=== PATIENT | female | born 1960 | race Caucasian/White ===

== ENCOUNTER 2023-08-17 09:05 | Outpatient (AMB) | payer OTHER, SELFPAY ==
--- NOTE | 2023-08-17 09:10 | A.OFFPC_ITS ---
Vital Signs 08/17/23 09:26 08/17/23 09:30 Height 5 ft 2 in Weight 263 lb 2 oz BMI 48.1 BP 146/67 H 158/65 H Blood Pressure Location Rt brachial Rt brachial Position Sitting Respiration 16 Pulse 59 Pulse Source Pulse Oximeter Intake Visit Reasons: Establish Care [facility] transfer Intake Note: New pateint visit. Requesting prescription for triamcinolone acetonide 0.1% cream [employer] Required: No Allergies bupropion Allergy (Unknown, Verified 08/17/23 09:17) Blister latex Allergy (Unknown, Verified 08/17/23 09:17) Rash silicone Allergy (Unknown, Verified 08/17/23 09:17) Rash tramadol Allergy (Unknown, Verified 08/17/23 09:17) feels unwell adhesive bandaid Allergy (Unknown, Uncoded 08/17/23 09:15) Rash Medication List - Last Reconciled 08/17/23 by Suzi Narayan MD [id number] mg (Goody's Extra Strength) 1 packet PO QID PRN duloxetine 30 mg PO BID gabapentin 900 mg PO TID pramipexole 0.5 mg PO TID triamcinolone acetonide 0.1% 1 appl topical DAILY Tobacco use date assessed: 08/17/23 Dental Screening Dental Screen Date: 08/17/23 Did you have a dental visit in the last 12 months?: No Did you have a dental problem in the last 6 months where you did not have access to dental care?: Yes Was dental information given to patient?: Patient has dentist HPI HPI Comments History of Present Illness Details 63 year old female with a past medical h istory of depression, anxiety, GERD, LE edema, PVD, low back pain, sciatica presenting for follow up Concerns over recently elevated blood pressure-past few weeks. Seemed to coincide with restarting duloxetine. BP in 150s/160s systolic. No increased pain levels. On wegovy for weight loss. Lost ~15 pounds on the medication Chronic pain: Low back, sciatica, chronic wounds. stable on meds. Hospitalized 05/2022 with LE cellulitis. Compression fractures noted at L4-L5. Mulitilevel DDD Leg ulcer-left leg chronic. Follows with [facility] wound. Follows with vascular Thyroid nodules: u/s stable BH: On duloxetine, Mom is living in [place] alone. Oldest of five sibling, four of whom don't speak with her. Sees a therapist. [facility] is following. Getting more support from her . mammo 12/2022 cologuard 2022 -neg [facility] Medical History (Updated 08/17/23 @ 10:26 by Suzi Narayan MD) Tubular adenoma of colon Severe obesity Restless legs Osteoarthritis Obesity Multiple thyroid nodules Hyponatremia Hypochloremia H/O gastroesophageal reflux (GERD) Elevated troponin Depression COVID-19 Anemia Surgical History (Updated 08/17/23 @ 09:38 by Shannan Ayoub CMA) H/O tubal ligation H/O: hysterectomy Family History (Updated 08/17/23 @ 09:40 by Shannan Ayoub CMA) Mother Heart disease Osteoporosis Father Prostate cancer Social History Housing: House Patient Tobacco Use Status: Never used Tobacco e-Cigarette/Vaping Use: Never Used service: No Current occupational status: disabled Cognitive needs: No Hearing needs: No Vision needs: Yes (glasses) Questionnaire PHQ-9 Over the last 2 weeks, how often have you been bothered by any of the following problems? 1. Little interest or pleasure in doing things: more than half the days 2. Feeling down, depressed, or hopeless: more than half the days 3. Trouble falling or staying asleep, or sleeping too much: more than half the days 4. Feeling tired or having little energy: more than half the days 5. Poor appetite or overeating: not at all 6. Feeling bad about yourself - or that you are a failure or have let yourself or your family down: not at all 7. Trouble concentrating on things, such as reading the newspaper or watching television: not at all 8. Moving or speaking so slowly that other people could have noticed. Or the opposite - being so fidgety or restless that you have been moving around a lot more than usual: not at all 9. Thoughts that you would be better off or of hurting yourself in some way: not at all Total score: 8 Depression Screening Interpretation: Positive Depression Screening Follow-up: Existing condition Depression Screening Done: Yes 20166 - PHQ-9 Billing: Yes Source: Developed by Drs. Stoney Madrid, Niya Leonard Schroeder and colleagues, with an educational urvashi from [employer]. Thrive Questionnaire Date Thrive assessed: 08/17/23 I am a: Patient What is your living situation today?: I have a steady place to live Within the past 12 months, did the food you bought not last and you didn't have the money to get more?: Never true Within the past 12 months, did you worry whether your food would run out before you got money to buy more?: Never true Do you have trouble paying for medicines?: No Do you have trouble getting transportation to medical appointments?: No Do you have trouble paying your heating and electricity bill?: No Do you have trouble taking care of your child, family member or friend?: No Do you have trouble with day-to-day activities such as bathing, preparing meals, shopping, managing finances, etc.?: No Are you currently unemployed and looking for a job?: No Are you interested in more education?: No Please select the resources that you would like help with: None Currently or been in a relationship where the following occur: no concerns reported THRIVE Score: 0 AUDIT C Alcohol Use Questionnaire (AUDIT-C) 1. How often do you have a drink containing alcohol?: 2-4 times a month 2. How many drinks containing alcohol do you have on a typical day when you are drinking?: 5 or 6 3. How often do you have six or more drinks on one occasion?: Monthly Total Score: 6 ALEX-7 AMB Questionnaire ALEX-7 Date ALEX - 7 assessed: 08/17/23 Feeling nervous, anxious, or on edge: 3 = Nearly every day Not being able to stop or control worryin = More than half the days Worrying too much about different things: 2 = More than half the days Trouble relaxin = Nearly every day Being so restless that it is hard to sit still: 3 = Nearly every day Becoming easily annoyed or irritable: 2 = More than half the days Feeling afraid as if something awful might happen: 2 = More than half the days Total ALEX-7 score (0-4 normal; 5-9 mild; 10-14 moderate; 15-21 severe): 17 Source: Developed by Drs. Stoney Madrid, Leonard Meléndez and colleagues, with an educational urvashi from [employer]. ALEX-7 Assessment Billing ALEX-7 Assessment Tool: ALEX-7 Assessment 91233 Review of Systems Const Details: ROS CONSTITUTIONAL: Denies weight loss, fever and chills. HEENT: Denies changes in vision and hearing. RESPIRATORY: Denies SOB and cough. CV: Denies palpitations and CP GI: Denies abdominal pain, nausea, vomiting and diarrhea. : Denies dysuria and urinary frequency. MSK: Denies new myalgia and joint pain. SKIN: Denies rash and pruritus. NEUROLOGICAL: Denies headache PSYCHIATRIC: Denies recent changes in mood. Physical exam (Primary Care) Vital Signs: Last Vital Signs Pulse 59 08/17/23 09:26 Resp 16 08/17/23 09:26 BP 158/65 H 08/17/23 09:30 PHYSICAL EXAM: GENERAL: Alert and oriented x 3. NAD EYES: EOMI. Anicteric. HENT: Moist mucous membranes. No scleral icterus. No cervical lymphadenopathy. LUNGS: Clear to auscultation bilaterally. CARDIOVASCULAR: Regular rate and rhythm. No murmur. No JVD. ABDOMEN: Soft, non-tender +bs EXTREMITIES: No edema. Non-tender. SKIN:Warm, dry No rashes or lesions. Warm. NEUROLOGIC: No focal neurological deficits. CN II-XII grossly intact PSYCHIATRIC: Cooperative. Appropriate mood and affect BMI result Body Mass Index 48.1 Tobacco/Smoking Status: Tobacco use Status Tobacco use date assessed 08/17/23 08/17/23 09:25 Patient Tobacco Use Status Never used Tobacco 08/17/23 09:25 e-Cigarette/Vaping Use Never Used 08/17/23 09:25 Depression Screening Interpretation: Positive Depression Screening Follow-up: Existing condition Currently or been in a relationship where the following occur: no concerns reported Assessment and Plan Assessment & Plan (1) Depression: Comment: Continue BH follow up. continue cymbalta Code(s): F32.A - Depression, unspecified Qualifiers: Depression Type: major depressive disorder Major depression recurrence: recurrent Active/Remission status: currently active Major depression episode severity: moderate Qualified Code(s): F33.1 - Major depressive disorder, recurrent, moderate (2) Multiple thyroid nodules: Code(s): E04.2 - Nontoxic multinodular goiter (3) H/O gastroesophageal reflux (GERD): Code(s): Z87.19 - Personal history of other diseases of the digestive system (4) Osteoarthritis: Comment: stable pain on current medications Code(s): M19.90 - Unspecified osteoarthritis, unspecified site Qualifiers: Osteoarthritis location: multiple joints Osteoarthritis type: primary Qualified Code(s): M15.9 - Polyosteoarthritis, unspecified (5) Tubular adenoma of colon: Code(s): D12.6 - Benign neoplasm of colon, unspecified (6) Restless legs: Code(s): G25.81 - Restless legs syndrome (7) Anemia: Code(s): D64.9 - Anemia, unspecified Orders: Orders Complete Blood Count Auto Diff Today D12.6 - Benign neoplasm of colon, unspecified, D64.9 - Anemia, unspecified, E04.2 - Nontoxic multinodular goiter, F33.1 - Major depressive disorder, recurrent, moderate, G25.81 - Restless legs syndrome, M15.9 - Polyosteoarthritis, unspecified, Z87.19 - Personal history of other diseases of the digestive system Comprehensive Met. Panel Today D12.6 - Benign neoplasm of colon, unspecified, D64.9 - Anemia, unspecified, E04.2 - Nontoxic multinodular goiter, F33.1 - Major depressive disorder, recurrent, moderate, G25.81 - Restless legs syndrome, M15.9 - Polyosteoarthritis, unspecified, Z87.19 - Personal history of other diseases of the digestive system TSH reflex Free T4 Today D12.6 - Benign neoplasm of colon, unspecified, D64.9 - Anemia, unspecified, E04.2 - Nontoxic multinodular goiter, F33.1 - Major depressive disorder, recurrent, moderate, G25.81 - Restless legs syndrome, M15.9 - Polyosteoarthritis, unspecified, Z87.19 - Personal history of other diseases of the digestive system Hemoglobin A1c Today D12.6 - Benign neoplasm of colon, unspecified, D64.9 - Anemia, unspecified, E04.2 - Nontoxic multinodular goiter, F33.1 - Major depressive disorder, recurrent, moderate, G25.81 - Restless legs syndrome, M15.9 - Polyosteoarthritis, unspecified, Z87.19 - Personal history of other diseases of the digestive system Medications: New semaglutide (weight loss) (Alexey) administer weeks 9 through 12 of therapy 1 mg (0.5 mL) subcut QWEEK 12 weeks 6 mL 3RF triamcinolone acetonide 0.1% 1 appl topical DAILY 30 grams 2RF losartan 25 mg PO DAILY 90 days 90 tabs 3RF triamcinolone acetonide 0.1% 1 appl topical DAILY 90 days 30 grams 3RF Coding Level of Care Code Est Pt Level 5 (50720) Complex EM visit Add On G2211 Diagnoses Moderate episode of recurrent major depressive disorder F33.1 Depression Type: major depressive disorder Major depression recurrence: recurrent Active/Remission status: currently active Major depression episode severity: moderate Multiple thyroid nodules E04.2 H/O gastroesophageal reflux (GERD) Z87.19 Primary osteoarthritis involving multiple joints M15.9 Osteoarthritis location: multiple joints Osteoarthritis type: primary Tubular adenoma of colon D12.6 Restless legs G25.81 Anemia D64.9 Additional Codes ALEX-7 Assessment Billing - ALEX-7 Assessment Tool: ALEX-7 Assessment [id number] ([id number]) Time Spent (min) 46
[2023-08-17 09:26] VITALS: BP 146/67; PULSE 59; RESP 16; BMI 48.1
[2023-08-17 09:30] VITALS: BP 158/65
== END 2023-08-17 10:20 | disposition home or self-care (01) ==
PROVIDERS: Visit Provider Internal Medicine
DX: E04.2 Nontoxic multinodular goiter (principal); F33.1 Major depressive disorder, recurrent, moderate; Z87.19 Personal history of other diseases of the digestive system; M15.9 Polyosteoarthritis, unspecified; D12.6 Benign neoplasm of colon, unspecified; G25.81 Restless legs syndrome; D64.9 Anemia, unspecified
CPT/HCPCS: 99215; G2211

== ENCOUNTER 2023-08-17 10:41 | Outpatient (REF) | payer OTHER, SELFPAY ==
[2023-08-17 14:48] LABS: MANUAL DIFF FLAG NO
[2023-08-17 14:56] LABS: Basophils Percent Auto 0.5 % (0-2); Eosinophils Absolute Auto 0.1 X10*3/uL (0.0-0.4); Eosinophils Percent Auto 2.3 % (0-4); Hematocrit 34.2 % (37.0-47.0); Hemoglobin 10.6 g/dl (12.0-16.0); Imm Gran Abs Auto 0.01 X10*3/uL (0.00-0.03); Imm Gran Pct Auto 0.2 % (0.0-0.4); Lymphocytes Absolute Auto 1.5 X10*3/uL (1.2-4.9); Lymphocytes Percent Auto 26.4 % (20-40); Monocytes Absolute Auto 0.4 X10*3/uL (0.1-1.2); Monocytes Percent Auto 7.3 % (2-11); Neutrophils Absolute Auto 3.6 x10*3/uL (2.0-8.3); Neutrophils Percent Auto 63.3 % (45-73); Platelet Count 243 X10*3/uL (160-400); Red Blood Count 4.07 X10*6/uL (4.20-5.50); White Blood Count 5.7 X10*3/uL (4.8-10.8)
[2023-08-17 15:16] LABS: Estimated Average Glucose 111 mg/dL; Hemoglobin A1c % 5.5 % (<6.0)
[2023-08-17 15:39] LABS: Alanine Aminotransferase 10 U/L (0-31); Albumin Level 3.8 g/dL (3.5-5.0); Alkaline Phosphatase 117 U/L (39-117); Anion Gap 14 (12-20); Aspartate Amino Transferase 15 U/L (5-31); Bilirubin Total 0.5 mg/dL (0.0-1.0); Blood Urea Nitrogen 11 mg/dL (9-16); Calcium 8.7 mg/dL (8.4-10.2); Carbon Dioxide 25 mmol/L (22-29); Chloride 105 mmol/L (96-108); Estimated Glomerular Filt Rate > 60; Glucose Random 86 mg/dL (60-115); Potassium 4.1 mmol/L (3.3-5.1); Sodium 140 mmol/L (135-145); Total Protein 7.2 g/dL (6.5-8.0)
[2023-08-17 15:46] LABS: TSH reflex Free T4 2.04 uIU/mL (0.32-4.0)
== END 2023-08-17 10:42 | disposition home or self-care (01) ==
LOC: HO.WFDLDS 10:41
PROVIDERS: Visit Provider Internal Medicine
DX: D64.9 Anemia, unspecified (principal); F33.1 Major depressive disorder, recurrent, moderate; E04.2 Nontoxic multinodular goiter; Z87.19 Personal history of other diseases of the digestive system; M15.9 Polyosteoarthritis, unspecified; D12.6 Benign neoplasm of colon, unspecified; G25.81 Restless legs syndrome
CPT/HCPCS: 36415; 80053; 83036; 84443; 85025

== ENCOUNTER 2023-09-12 11:15 | Outpatient (AMB) | payer OTHER, SELFPAY ==
--- NOTE | 2023-09-12 11:22 | MHC.PC.OV ---
Vital Signs 09/12/23 11:24 Height 5 ft 2 in Weight 263 lb BMI 48.1 BP 161/77 H Blood Pressure Location Lt radial Position Sitting Respiration 16 Pulse 69 Pulse Source Pulse Oximeter Temp 97.9 F Temp Source Temporal Artery Scan Pulse Oximetry (%) 97 Oxygen Delivery Method Room Air Intake Visit Reasons: f/u medication Intake Note: F/U on medication. Allergies bupropion Allergy (Unknown, Verified 09/12/23 11:22) Blister latex Allergy (Unknown, Verified 09/12/23 11:22) Rash silicone Allergy (Unknown, Verified 09/12/23 11:22) Rash tramadol Allergy (Unknown, Verified 09/12/23 11:22) feels unwell adhesive bandaid Allergy (Unknown, Uncoded 08/17/23 09:15) Rash Medication List - Last Reconciled 09/12/23 by Suzi Narayan MD [id number] [id number] mg (Goody's Extra Strength) 1 packet PO QID PRN duloxetine 30 mg PO BID gabapentin 900 mg PO TID losartan 25 mg PO DAILY 90 days morphine ER 30 mg PO BID oxycodone mg PO pramipexole 0.5 mg PO TID triamcinolone acetonide 0.1% 1 appl topical DAILY triamcinolone acetonide 0.1% 1 appl topical DAILY 90 days Wegovy (semaglutide (weight loss)) 1 mg (0.5 mL) subcut QWEEK 12 weeks NS Tobacco use date assessed: 08/17/23 Dental Screening Dental Screen Date: 08/17/23 HPI HPI Comments History of Present Illness Details 63 year old female with a past medical history of depression, anxiety, GERD, LE edema, PVD, low back pain, sciatica presenting for follow up CV: Blood pressure has improved at home. Home health/PT has gotten good readings. continues to be elevated in office. Seemed to coincide with restarting duloxetine. BP was 150s/160s systolic improved at homne to 120s, 130s. No increased pain levels. On wegovy for weight loss. Lost ~15 pounds on the medication Chronic pain: Low back, sciatica, chronic wounds. stable on meds. Hospitalized 05/2022 with LE cellulitis. Compression fractures noted at L4-L5. Mulitilevel DDD Leg ulcer-left leg chronic. Follows with [facility] wound. Follows with vascular Thyroid nodules: u/s stable BH: On duloxetine, Mom is living in [place] alone. Oldest of five sibling, four of whom don't speak with her. Sees a therapist. [facility]. Getting more support from her . mammo 12/2022 cologuard 2022 -neg. Recent labs with mild anemia. [facility] Medical History (Updated 09/17/23 @ 10:55 by Suzi Narayan MD) Tubular adenoma of colon Severe obesity Restless legs Osteoarthritis Obesity Multiple thyroid nodules Hyponatremia Hypochloremia H/O gastroesophageal reflux (GERD) Elevated troponin Depression COVID-19 Anemia Surgical History (Updated 08/17/23 @ 09:38 by Shannan Ayoub CMA) H/O tubal ligation H/O: hysterectomy Family History (Updated 08/17/23 @ 09:40 by Shannan Ayoub CMA) Mother Heart disease Osteoporosis Father Prostate cancer Social History Housing: House Patient Tobacco Use Status: Never used Tobacco e-Cigarette/Vaping Use: Never Used service: No 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 Depression Screening Interpretation: Positive Depression Screening Follow-up: Existing condition Depression Screening Done: Yes Source: Developed by Drs. Stoney Madrid, Leonard Meléndez and colleagues, with an educational uravshi from [employer]. Thrive Questionnaire Date Thrive assessed: 08/17/23 Currently or been in a relationship where the following occur: no concerns reported THRIVE Score: 0 AUDIT C Alcohol Use Questionnaire (AUDIT-C) 1. How often do you have a drink containing alcohol?: Monthly or less 2. How many drinks containing alcohol do you have on a typical day when you are drinking?: 3 or 4 3. How often do you have six or more drinks on one occasion?: Monthly Total Score: 4 Score Reviewed/Action Taken: Yes ALEX-7 AMB Questionnaire ALEX-7 Date ALEX - 7 assessed: 08/17/23 Source: Developed by Drs. Stoney Madrid, Leonard Meléndez and colleagues, with an educational urvashi from [employer]. ACT Questionnaire In the past 4 weeks, how much of the time did your asthma keep you from getting as much done at work, school or at home?: None of the time During the past 4 weeks, how often have you had shortness of breath?: Not at all During the past 4 weeks, how often did your asthma symptoms wake you up at night or earlier than usual in the morning?: Not at all During the past 4 weeks, how often have you had to use your rescue inhaler or nebulizer medication?: Not at all How would you rate your asthma control during the past 4 weeks?: Completely controlled Score: 25 Review of Systems Const Details: ROS CONSTITUTIONAL: Denies weight loss, fever and chills. HEENT: Denies changes in vision and hearing. RESPIRATORY: Denies SOB and cough. CV: Denies palpitations and CP GI: Denies abdominal pain, nausea, vomiting and diarrhea. : Denies dysuria and urinary frequency. MSK: Denies new myalgia and joint pain. SKIN: Denies rash and pruritus. NEUROLOGICAL: Denies headache PSYCHIATRIC: Denies recent changes in mood. Physical exam (Primary Care) Vital Signs: Last Vital Signs Temp 97.9 F 09/12/23 11:24 Pulse 69 09/12/23 11:24 Resp 16 09/12/23 11:24 BP 161/77 H 09/12/23 11:24 Pulse Ox 97 09/12/23 11:24 Oxygen Delivery Method Room Air 09/12/23 11:24 PHYSICAL EXAM: GENERAL: Alert and oriented x 3. NAD EYES: EOMI. Anicteric. HENT: Moist mucous membranes. No scleral icterus. No cervical lymphadenopathy. LUNGS: Clear to auscultation bilaterally. CARDIOVASCULAR: Regular rate and rhythm. No murmur. No JVD. ABDOMEN: Soft, non-tender +bs EXTREMITIES: No edema. Non-tender. SKIN:Warm, dry No rashes or lesions. Warm. NEUROLOGIC: No focal neurological deficits. CN II-XII grossly intact PSYCHIATRIC: Cooperative. Appropriate mood and affect BMI result Body Mass Index 48.1 Tobacco/Smoking Status: Tobacco use Status Tobacco use date assessed 08/17/23 09/12/23 11:29 Patient Tobacco Use Status Never used Tobacco 09/12/23 11:29 e-Cigarette/Vaping Use Never Used 09/12/23 11:29 Depression Screening Interpretation: Positive Depression Screening Follow-up: Existing condition Thrive Assessment: Date of Thrive Assessment Date Thrive assessed 08/17/23 09/12/23 11:29 Currently or been in a relationship where the following occur: no concerns reported Assessment and Plan Assessment & Plan (1) Depression: Comment: Continue BH follow up. continue cymbalta. Code(s): F32.A - Depression, unspecified Qualifiers: Active/Remission status: currently active Depression Type: major depressive disorder Major depression episode severity: moderate Major depression recurrence: recurrent Qualified Code(s): F33.1 - Major depressive disorder, recurrent, moderate (2) Osteoarthritis: Comment: stable baseline pain on current medications. Bilateral hip pain-start meloxicam. Code(s): M19.90 - Unspecified osteoarthritis, unspecified site Qualifiers: Osteoarthritis location: multiple joints Osteoarthritis type: primary Qualified Code(s): M15.9 - Polyosteoarthritis, unspecified (3) Anemia: Comment: Patient declines referral for colonoscopy. Agreeable to cologuard Code(s): D64.9 - Anemia, unspecified Qualifiers: Anemia type: unspecified type Qualified Code(s): D64.9 - Anemia, unspecified Orders: Referrals Cologuard Test Z12.11 - Encounter for screening for malignant neoplasm of colon, Z12.12 - Encounter for screening for malignant neoplasm of rectum Medications: New oxycodone 5 mg PO Q8H PRN 21 tabs 0RF pain 7 days meloxicam 15 mg PO DAILY 90 tabs 3RF morphine ER 30 mg PO BID 60 tabs 0RF 30 days Changed From semaglutide (weight loss) (Wegovy) administer weeks 9 through 12 of therapy 1 mg (0.5 mL) subcut QWEEK 12 weeks 6 mL 3RF To Wegovy (semaglutide (weight loss)) administer weeks 9 through 12 of therapy 1 mg (0.5 mL) subcut QWEEK 6 mL 3RF 12 weeks NS Coding Level of Care Code Est Pt Level 4 (50950) Diagnoses Moderate episode of recurrent major depressive disorder F33.1 Active/Remission status: currently active Depression Type: major depressive disorder Major depression episode severity: moderate Major depression recurrence: recurrent Primary osteoarthritis involving multiple joints M15.9 Osteoarthritis location: multiple joints Osteoarthritis type: primary Anemia, unspecified type D64.9 Anemia type: unspecified type
[2023-09-12 11:24] VITALS: BP 161/77; PULSE 69; RESP 16; TEMP 36.6; O2SAT 97; BMI 48.1
== END 2023-09-12 12:06 | disposition home or self-care (01) ==
PROVIDERS: PCP Internal Medicine; Visit Provider Internal Medicine
DX: F33.1 Major depressive disorder, recurrent, moderate (principal); M15.9 Polyosteoarthritis, unspecified; D64.9 Anemia, unspecified
CPT/HCPCS: 99214

== ENCOUNTER 2023-11-27 12:07 | Outpatient (REF) | payer OTHER, SELFPAY ==
[2023-11-27 14:43] LABS: Appearance Urine Cloudy; Color Urine Yellow; Glucose Urine UA Negative (Negative); Leukocyte Esterase Urine Large (3+) (Negative); Nitrite Urine Negative (Negative); Specific Gravity - Urine <= 1.005 (1.005-1.025); UMIC TRIGGER UA YES; Urine Blood Negative (Negative); Urine Ketones Negative (Negative); Urine Protein Negative (Neg-Trace)
[2023-11-27 14:47] LABS: Bacteria Urine None Seen (None Seen); Hyaline Casts Urine 0-2 /LPF (0-2); RBC Urine 0-2 /HPF (0-2); Squamous Epithelial Cell Urine 0-2 /HPF (0-2); WBC Urine >50 /HPF (0-5)
== END 2023-11-27 12:08 | disposition home or self-care (01) ==
LOC: HO.WFDLDS 12:07
PROVIDERS: Visit Provider Family Medicine
DX: R30.0 Dysuria (principal); R82.79 Other abnormal findings on microbiological examination of urine
CPT/HCPCS: 81001; 87086; 87088; 87186

== ENCOUNTER 2023-12-19 10:25 | Outpatient (AMB) | payer OTHER, SELFPAY ==
--- NOTE | 2023-12-19 10:39 | MHC.PC.OV ---
Vital Signs 12/19/23 10:48 Height 5 ft 2 in BMI Reason not done Patient refused/unable BP 143/66 H Blood Pressure Location Rt radial Position Sitting Pulse 85 Pulse Source Pulse Oximeter Pulse Oximetry (%) 100 Oxygen Delivery Method Room Air Intake Visit Reasons: Rsch from 12/17 Intake Note: Patient is here for a follow up Internal Medicine Nurse Practitioner Required: No Accompanied by: Self / Same As Patient Allergies bupropion Allergy (Unknown, Verified 12/19/23 10:42) Blister latex Allergy (Unknown, Verified 12/19/23 10:42) Rash silicone Allergy (Unknown, Verified 12/19/23 10:42) Rash tramadol Allergy (Unknown, Verified 12/19/23 10:42) feels unwell adhesive bandaid Allergy (Unknown, Uncoded 12/19/23 10:42) Rash Tobacco use date assessed: 08/17/23 Dental Screening Dental Screen Date: 08/17/23 HPI HPI Comments History of Present Illness Details 63 year old female with a past medical history of depression, anxiety, GERD, LE edema, PVD, low back pain, sciatica presenting for follow up CV: Blood pressure 130-150s, more often 140, 150s. Continues to have home health. No increased pain levels. On wegovy for weight loss. Lost ~15 pounds on the medication. She requests a referral to nutrition Chronic pain: Low back, sciatica, chronic wounds. stable on meds-morphine ER, oxycodone. Hospitalized 05/2022 with LE cellulitis. Compression fractures noted at L4-L5. Mulitilevel DDD Leg ulcer-left leg chronic. Follows with [facility] wound. Follows with vascular Thyroid nodules: u/s stable BH: stable on duloxetine. Mom is living in [place] alone. Oldest of five sibling, four of whom don't speak with her. Sees a therapist. [facility] is following. Getting more support from her . Mammo 12/2022 Anemia on labs. She had cologuard 2022 -neg. Is willing to consider colonoscopy if insurance covers ROS see HPI PHYSICAL EXAM: GENERAL: Alert and oriented x 3. NAD EYES: EOMI. Anicteric. HENT: Moist mucous membranes. No scleral icterus. No cervical lymphadenopathy. LUNGS: Clear to auscultation bilaterally. CARDIOVASCULAR: Regular rate and rhythm. No murmur. No JVD. ABDOMEN: Soft, non-tender +bs EXTREMITIES: No edema. Non-tender. SKIN: No rashes or lesions. Warm. NEUROLOGIC: No focal neurological deficits. CN II-XII grossly intact PSYCHIATRIC: Cooperative. Appropriate mood and affect [facility] Medical History Tubular adenoma of colon Severe obesity Restless legs Osteoarthritis Obesity Multiple thyroid nodules Hyponatremia Hypochloremia H/O gastroesophageal reflux (GERD) Elevated troponin Depression COVID-19 Anemia Surgical History H/O tubal ligation H/O: hysterectomy Family History Mother Heart disease Osteoporosis Father Prostate cancer Social History Housing: House Patient Tobacco Use Status: Never used Tobacco e-Cigarette/Vaping Use: Never Used service: No Current occupational status: disabled (industrial accident disability) Cognitive needs: No Hearing needs: No Vision needs: Yes (glasses) Questionnaire Thrive Questionnaire Date Thrive assessed: 08/17/23 I am a: Patient What is your living situation today?: I have a steady place to live Within the past 12 months, did the food you bought not last and you didn't have the money to get more?: I choose not to answer this question Within the past 12 months, did you worry whether your food would run out before you got money to buy more?: I choose not to answer this question Do you have trouble paying for medicines?: Yes Do you have trouble getting transportation to medical appointments?: No Do you have trouble paying your heating and electricity bill?: I choose not to answer this question Do you have trouble taking care of your child, family member or friend?: No Do you have trouble with day-to-day activities such as bathing, preparing meals, shopping, managing finances, etc.?: No Are you currently unemployed and looking for a job?: I choose not to answer this question Are you interested in more education?: No Please select the resources that you would like help with: None Currently or been in a relationship where the following occur: No concerns reported THRIVE Score: 0 AUDIT C Alcohol Use Questionnaire (AUDIT-C) 1. How often do you have a drink containing alcohol?: Monthly or less 2. How many drinks containing alcohol do you have on a typical day when you are drinking?: 3 or 4 3. How often do you have six or more drinks on one occasion?: Less than monthly Total Score: 3 ALEX-7 AMB Questionnaire ALEX-7 Date ALEX - 7 assessed: 08/17/23 Feeling nervous, anxious, or on edge: 3 = Nearly every day Not being able to stop or control worryin = More than half the days Worrying too much about different things: 3 = Nearly every day Trouble relaxin = Nearly every day Being so restless that it is hard to sit still: 3 = Nearly every day Becoming easily annoyed or irritable: 3 = Nearly every day Feeling afraid as if something awful might happen: 2 = More than half the days Total ALEX-7 score (0-4 normal; 5-9 mild; 10-14 moderate; 15-21 severe): 19 Source: Developed by Drs. Stoney Madrid, Niya Crowley, Leonard Carrington and colleagues, with an educational urvashi from [email or web address]. Physical exam (Primary Care) Vital Signs: Last Vital Signs Pulse 85 12/19/23 10:48 BP 143/66 H 12/19/23 10:48 Pulse Ox 100 12/19/23 10:48 Oxygen Delivery Method Room Air 12/19/23 10:48 Tobacco/Smoking Status: Tobacco use Status Tobacco use date assessed 08/17/23 12/19/23 10:45 Patient Tobacco Use Status Never used Tobacco 12/19/23 10:45 e-Cigarette/Vaping Use Never Used 12/19/23 10:45 Thrive Assessment: Date of Thrive Assessment Date Thrive assessed 08/17/23 12/19/23 10:45 Currently or been in a relationship where the following occur: No concerns reported Assessment and Plan Assessment & Plan (1) Chronic pain: Code(s): G89.29 - Other chronic pain Qualifiers: Chronic pain type: chronic pain syndrome Qualified Code(s): G89.4 - Chronic pain syndrome Plan: stable on current medications (2) Severe obesity: Code(s): E66.01 - Morbid (severe) obesity due to excess calories Plan: continues GLP (3) Osteoarthritis: Comment: stable baseline pain on current medications Code(s): M19.90 - Unspecified osteoarthritis, unspecified site Qualifiers: Osteoarthritis location: multiple joints Osteoarthritis type: primary Qualified Code(s): M15.9 - Polyosteoarthritis, unspecified Orders: Referrals Nutrition/Dietitian Referral E66.9 - Obesity, unspecified Gastroenterology Referral D64.9 - Anemia, unspecified Medications: New ondansetron 4 mg PO Q8H PRN 60 tabs 3RF nausea and vomiting losartan 50 mg PO DAILY 90 tabs 3RF Refilled morphine ER 30 mg PO BID 30 days 60 tabs 0RF Discontinued losartan Discontinued Reason: Doctor's Order 25 mg PO DAILY 90 days 90 tabs 3RF Coding Level of Care Code Est Pt Level 5 (31313) Complex EM visit Add On G2211 Diagnoses Chronic pain syndrome G89.4 Chronic pain type: chronic pain syndrome Severe obesity E66.01 Primary osteoarthritis involving multiple joints M15.9 Osteoarthritis location: multiple joints Osteoarthritis type: primary Time Spent (min) 44
[2023-12-19 10:48] VITALS: BP 143/66; PULSE 85; O2SAT 100
== END 2023-12-19 11:26 | disposition home or self-care (01) ==
PROVIDERS: PCP Internal Medicine; Visit Provider Internal Medicine
DX: G89.4 Chronic pain syndrome (principal); E66.01 Morbid (severe) obesity due to excess calories; M15.9 Polyosteoarthritis, unspecified
CPT/HCPCS: 99215

== ENCOUNTER 2024-01-26 10:23 | Outpatient (AMB) | payer OTHER, SELFPAY ==
--- NOTE | 2024-01-26 10:28 | A.OFFPC_ITS ---
Vital Signs 01/26/24 10:31 01/26/24 10:39 BMI Reason not done Patient refused/unable BP 149/68 H 177/74 H Blood Pressure Location Rt brachial Rt brachial Position Sitting Sitting Pulse 72 Pulse Source Pulse Oximeter Pulse Oximetry (%) 98 Oxygen Delivery Method Room Air Intake Visit Reasons: medication issues Intake Note: Follow up Paratransit Operator Required: No Allergies bupropion Allergy (Unknown, Verified 01/26/24 10:28) Blister latex Allergy (Unknown, Verified 01/26/24 10:28) Rash silicone Allergy (Unknown, Verified 01/26/24 10:28) Rash tramadol Allergy (Unknown, Verified 01/26/24 10:28) feels unwell adhesive bandaid Allergy (Unknown, Uncoded 01/26/24 10:28) Rash Tobacco use date assessed: 08/17/23 Dental Screening Dental Screen Date: 08/17/23 HPI HPI Comments History of Present Illness Details 63 year old female with a past medical h istory of depression, anxiety, GERD, LE edema, PVD, low back pain, sciatica presenting for follow up CV: Blood pressure 130-150s, has infrequent lightheadedness. Continues to have home health. No increased pain levels. On wegovy for weight loss. Doing well with it. She is having some nausea before dinner time. Chronic pain: Low back, sciatica, chronic wounds. stable on meds-morphine ER, oxycodone. Hospitalized 05/2022 with LE cellulitis. Compression fractures noted at L4-L5. Mulitilevel DDD Leg ulcer-left leg chronic. Follows with [facility] wound. Follows with vascular Thyroid nodules: u/s stable BH: stable on duloxetine. Mom is living in [place] alone. Oldest of five sibling, four of whom don't speak with her. Sees a therapist. [facility] is following. Getting more support from her . Mammo 12/2022 Anemia on labs. She had cologuard 2022 -neg. Is willing to consider colonoscopy if insurance covers ROS see HPI PHYSICAL EXAM: GENERAL: Alert and oriented x 3. NAD EYES: EOMI. Anicteric. HENT: Moist mucous membranes. No scleral icterus. No cervical lymphadenopathy. LUNGS: Clear to auscultation bilaterally. CARDIOVASCULAR: Regular rate and rhythm. No murmur. No JVD. ABDOMEN: Soft, non-tender +bs EXTREMITIES: No edema. Non-tender. SKIN: No rashes or lesions. Warm. NEUROLOGIC: No focal neurological deficits. CN II-XII grossly intact PSYCHIATRIC: Cooperative. Appropriate mood and affect [facility] Medical History Tubular adenoma of colon Severe obesity Restless legs Osteoarthritis Obesity Multiple thyroid nodules Hyponatremia Hypochloremia H/O gastroesophageal reflux (GERD) Elevated troponin Depression COVID-19 Anemia Surgical History H/O tubal ligation H/O: hysterectomy Family History Mother Heart disease Osteoporosis Father Prostate cancer Social History Housing: House Patient Tobacco Use Status: Never used Tobacco e-Cigarette/Vaping Use: Never Used service: No 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 4. Feeling tired or having little energy: nearly every day 5. Poor appetite or overeating: nearly every day Depression Screening Interpretation: Negative Depression Screening Done: Yes Source: Developed by Drs. Stoney Madrid, Niya Crowley, Leonard Carrington and colleagues, with an educational urvashi from [employer]. Thrive Questionnaire Date Thrive assessed: 12/19/23 I am a: Patient What is your living situation today?: I have a steady place to live Within the past 12 months, did the food you bought not last and you didn't have the money to get more?: I choose not to answer this question Within the past 12 months, did you worry whether your food would run out before you got money to buy more?: I choose not to answer this question Do you have trouble paying for medicines?: Yes Do you have trouble getting transportation to medical appointments?: No Do you have trouble paying your heating and electricity bill?: I choose not to answer this question Do you have trouble taking care of your child, family member or friend?: No Do you have trouble with day-to-day activities such as bathing, preparing meals, shopping, managing finances, etc.?: No Are you currently unemployed and looking for a job?: I choose not to answer this question Are you interested in more education?: No Please select the resources that you would like help with: None Currently or been in a relationship where the following occur: No concerns reported THRIVE Score: 0 ALEX-7 AMB Questionnaire ALEX-7 Date ALEX - 7 assessed: 08/17/23 Source: Developed by Drs. Stoney Madrid, Niya Crowley, Leonard Carrington and colleagues, with an educational urvashi from [employer]. Physical exam (Primary Care) Vital Signs: Last Vital Signs Pulse 72 01/26/24 10:31 BP 177/74 H 01/26/24 10:39 Pulse Ox 98 01/26/24 10:31 Oxygen Delivery Method Room Air 01/26/24 10:31 Tobacco/Smoking Status: Tobacco use Status Tobacco use date assessed 08/17/23 01/26/24 10:35 Patient Tobacco Use Status Never used Tobacco 01/26/24 10:35 e-Cigarette/Vaping Use Never Used 01/26/24 10:35 Depression Screening Interpretation: Negative Thrive Assessment: Date of Thrive Assessment Date Thrive assessed 12/19/23 01/26/24 10:35 Currently or been in a relationship where the following occur: No concerns reported Coding Level of Care Code Est Pt Level 4 (63268) Diagnoses Severe obesity E66.01 Primary osteoarthritis involving multiple joints M15.9 Osteoarthritis location: multiple joints Osteoarthritis type: primary Assessment & Plan Assessment & Plan (1) Severe obesity: Code(s): E66.01 - Morbid (severe) obesity due to excess calories Category: Medical Plan: Doing well on wegovy. Experiencing some nausea in late afternoon. zofran sent with coupon (2) Osteoarthritis: Comment: stable baseline pain on current medications Code(s): M19.90 - Unspecified osteoarthritis, unspecified site Category: Medical Qualifiers: Osteoarthritis location: multiple joints Osteoarthritis type: primary Qualified Code(s): M15.9 - Polyosteoarthritis, unspecified Plan: continue current medications Medications: New ondansetron RUN WITH ATTACHED [employer] code 8 mg PO DAILY 30 tabs 0RF
[2024-01-26 10:31] VITALS: BP 149/68; PULSE 72; O2SAT 98
[2024-01-26 10:39] VITALS: BP 177/74
== END 2024-01-26 11:12 | disposition home or self-care (01) ==
PROVIDERS: PCP Internal Medicine; Visit Provider Internal Medicine
DX: M15.9 Polyosteoarthritis, unspecified (principal); E66.01 Morbid (severe) obesity due to excess calories

== ENCOUNTER → 2024-01-26 10:23 | Outpatient (BNVA) | payer OTHER, SELFPAY | PROVIDERS: PCP Internal Medicine; Visit Provider Internal Medicine ==

== ENCOUNTER 2024-04-30 09:08 | Outpatient (AMB) | payer OTHER, SELFPAY ==
--- NOTE | 2024-04-30 09:16 | A.OFFPC_ITS ---
Vital Signs 04/30/24 09:23 04/30/24 09:28 Height 5 ft 2 in Weight 279 lb 2 oz BMI 51.0 BP 163/78 H 170/82 H Blood Pressure Location Lt brachial Lt brachial Position Sitting Sitting Pulse 47 L Pulse Source Pulse Oximeter Pulse Oximetry (%) 96 Oxygen Delivery Method Room Air Intake Visit Reasons: F/U B/P and meds Intake Note: Blood pressure and medication follow up. Having restless legs at night. Unable to sleep due to the pain. Refill Losartan 90 days to [facility] Associate Account Director Required: No Allergies bupropion Allergy (Unknown, Verified 04/30/24 09:16) Blister latex Allergy (Unknown, Verified 04/30/24 09:16) Rash silicone Allergy (Unknown, Verified 04/30/24 09:16) Rash tramadol Allergy (Unknown, Verified 04/30/24 09:16) feels unwell adhesive bandaid Allergy (Unknown, Uncoded 04/30/24 09:16) Rash Tobacco use date assessed: 08/17/23 Dental Screening Dental Screen Date: 08/17/23 HPI HPI Comments History of Present Illness Details 63 year old female with a past medical h istory of depression, anxiety, GERD, LE edema, PVD, low back pain, sciatica presenting for follow up CV: stable on current medications. On wegovy for weight loss. Doing well with it. She is having some nausea before dinner time. Chronic pain: Low back, sciatica, chronic wounds. stable on meds-morphine ER, oxycodone. Hospitalized 05/2022 with LE cellulitis. Compression fractures noted at L4-L5. Mulitilevel DDD Leg ulcer-left leg chronic. Follows with [facility] wound. Follows with vascular Thyroid nodules: u/s stable BH: stable on duloxetine. Mom is living in [place] alone. Oldest of five sibling, four of whom don't speak with her. Sees a therapist. [facility] is following. Getting more support from her . Mammo 12/2022 Anemia on labs. She had cologuard 2022 -neg. Is willing to consider colonoscopy if insurance covers ROS see HPI PHYSICAL EXAM: GENERAL: Alert and oriented x 3. NAD EYES: EOMI. Anicteric. HENT: Moist mucous membranes. No scleral icterus. No cervical lymphadenopathy. LUNGS: Clear to auscultation bilaterally. CARDIOVASCULAR: Regular rate and rhythm. No murmur. No JVD. ABDOMEN: Soft, non-tender +bs EXTREMITIES: No edema. Non-tender. SKIN: No rashes or lesions. Warm. NEUROLOGIC: No focal neurological deficits. CN II-XII grossly intact PSYCHIATRIC: Cooperative. Appropriate mood and affect [facility] Medical History Tubular adenoma of colon Severe obesity Restless legs Osteoarthritis Obesity Multiple thyroid nodules Hyponatremia Hypochloremia H/O gastroesophageal reflux (GERD) Elevated troponin Depression COVID-19 Anemia Surgical History H/O tubal ligation H/O: hysterectomy Family History Mother Heart disease Osteoporosis Father Prostate cancer Social History (Updated 04/30/24 @ 09:33 by Shannan Ayoub CMA) Housing: House Alcohol intake: current Patient Tobacco Use Status: Never used Tobacco e-Cigarette/Vaping Use: Never Used service: No 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 1. Little interest or pleasure in doing things: not at all 2. Feeling down, depressed, or hopeless: nearly every day 3. Trouble falling or staying asleep, or sleeping too much: nearly every day 4. Feeling tired or having little energy: not at all 5. Poor appetite or overeating: nearly every day 6. Feeling bad about yourself - or that you are a failure or have let yourself or your family down: not at all 7. Trouble concentrating on things, such as reading the newspaper or watching television: not at all 8. Moving or speaking so slowly that other people could have noticed. Or the opposite - being so fidgety or restless that you have been moving around a lot more than usual: not at all 9. Thoughts that you would be better off or of hurting yourself in some way: not at all Total score: 9 Depression Screening Interpretation: Positive Depression Screening Done: Yes 79399 - PHQ-9 Billing: Yes Source: Developed by Drs. Stoney Madrid, Niya Crowley, Leonard Carrington and colleagues, with an educational urvashi from [employer]. Thrive Questionnaire Date Thrive assessed: 04/30/24 I am a: Patient What is your living situation today?: I have a steady place to live Within the past 12 months, did the food you bought not last and you didn't have the money to get more?: Never true Within the past 12 months, did you worry whether your food would run out before you got money to buy more?: Never true Do you have trouble paying for medicines?: No Do you have trouble getting transportation to medical appointments?: No Do you have trouble paying your heating and electricity bill?: No Do you have trouble taking care of your child, family member or friend?: No Do you have trouble with day-to-day activities such as bathing, preparing meals, shopping, managing finances, etc.?: No Are you currently unemployed and looking for a job?: No Are you interested in more education?: No Please select the resources that you would like help with: None Currently or been in a relationship where the following occur: No concerns reported THRIVE Score: 0 AUDIT C Alcohol Use Questionnaire (AUDIT-C) 1. How often do you have a drink containing alcohol?: 2-4 times a month 2. How many drinks containing alcohol do you have on a typical day when you are drinking?: 5 or 6 3. How often do you have six or more drinks on one occasion?: Less than monthly Total Score: 5 ALEX-7 AMB Questionnaire ALEX-7 Date ALEX - 7 assessed: 04/30/24 Feeling nervous, anxious, or on edge: 1 = Several days Not being able to stop or control worryin = Not at all Worrying too much about different things: 0 = Not at all Trouble relaxin = Several days Being so restless that it is hard to sit still: 1 = Several days Becoming easily annoyed or irritable: 1 = Several days Feeling afraid as if something awful might happen: 0 = Not at all Total ALEX-7 score (0-4 normal; 5-9 mild; 10-14 moderate; 15-21 severe): 4 Source: Developed by Niya Richey Kurt Kroenke and colleagues, with an educational urvashi from [employer]. ALEX-7 Assessment Billing ALEX-7 Assessment Tool: ALEX-7 Assessment 59811 Physical exam (Primary Care) Vital Signs: Last Vital Signs Pulse 47 L 04/30/24 09:23 BP 170/82 H 04/30/24 09:28 Pulse Ox 96 04/30/24 09:23 Oxygen Delivery Method Room Air 04/30/24 09:23 BMI result Body Mass Index 51.0 Tobacco/Smoking Status: Tobacco use Status Tobacco use date assessed 08/17/23 04/30/24 09:22 Patient Tobacco Use Status Never used Tobacco 04/30/24 09:33 e-Cigarette/Vaping Use Never Used 04/30/24 09:33 PHQ-9: PHQ-9 Score PHQ-9: Total score 9 04/30/24 09:34 Depression Screening Interpretation: Positive Thrive Assessment: Date of Thrive Assessment Date Thrive assessed 04/30/24 04/30/24 09:33 Currently or been in a relationship where the following occur: No concerns reported Coding Level of Care Code Est Pt Level 4 (41689) Diagnoses Chronic pain syndrome G89.4 Chronic pain type: chronic pain syndrome Severe obesity E66.01 Restless legs G25.81 Additional Codes ALEX-7 Assessment Billing - ALEX-7 Assessment Tool: ALEX-7 Assessment 22633 ([id number]) PHQ-9 - 58135 - PHQ-9 Billing: Yes ([id number]) Assessment & Plan Assessment & Plan (1) Chronic pain: Code(s): G89.29 - Other chronic pain Category: Medical Qualifiers: Chronic pain type: chronic pain syndrome Qualified Code(s): G89.4 - Chronic pain syndrome Plan: Stable on current medication (2) Severe obesity: Code(s): E66.01 - Morbid (severe) obesity due to excess calories Category: Medical Plan: continue GLP (3) Restless legs: Code(s): G25.81 - Restless legs syndrome Category: Medical Plan: Trial ropinirole Orders: Orders [place] electromyogram (EMG) Today G56.12 - Other lesions of median nerve, left upper limb Referrals Physiatry Referral G56.12 - Other lesions of median nerve, left upper limb Medications: New losartan 25 mg PO DAILY 90 tabs 3RF sertraline Take 1/2 tab oral once daily for one week then increase to 1 tab oral once daily 25 mg PO DAILY 90 tabs 3RF
[2024-04-30 09:23] VITALS: BP 163/78; PULSE 47; O2SAT 96; BMI 51.0
[2024-04-30 09:28] VITALS: BP 170/82
== END 2024-04-30 09:46 | disposition home or self-care (01) ==
PROVIDERS: PCP Internal Medicine; Visit Provider Internal Medicine
DX: G89.4 Chronic pain syndrome (principal); E66.01 Morbid (severe) obesity due to excess calories; G25.81 Restless legs syndrome; Z68.43 Body mass index [BMI] 50.0-59.9, adult

== ENCOUNTER → 2024-04-30 09:08 | Outpatient (BNVA) | payer OTHER, SELFPAY | PROVIDERS: PCP Internal Medicine; Visit Provider Internal Medicine | DX: G89.4 Chronic pain syndrome (principal); E66.01 Morbid (severe) obesity due to excess calories; Z68.43 Body mass index [BMI] 50.0-59.9, adult; G25.81 Restless legs syndrome | CPT/HCPCS: 96127 ==

== ENCOUNTER → 2024-05-20 14:52 | Outpatient (BNVA) | payer OTHER, SELFPAY | PROVIDERS: PCP Internal Medicine; Visit Provider Internal Medicine ==

== ENCOUNTER 2024-06-04 09:33 | Outpatient (AMB) | payer OTHER, SELFPAY ==
--- NOTE | 2024-06-04 09:38 | MHC.PC.OV ---
Vital Signs 06/04/24 09:53 06/04/24 10:00 Height 5 ft 2 in Weight 266 lb BMI 48.6 BP 142/80 H 160/82 H Blood Pressure Location Lt brachial Lt brachial Position Sitting Sitting Pulse 73 Pulse Source Pulse Oximeter Temp 97.2 F Temp Source Temporal Artery Scan Pulse Oximetry (%) 97 Oxygen Delivery Method Room Air Intake Visit Reasons: productive cough, post tussive emesis Intake Note: Cough. Needs a different strength of Morphine. Had a fever this weekend of 101. 20mg is out of stock. Sales Development Associate Required: No Allergies bupropion Allergy (Unknown, Verified 06/04/24 09:50) Blister latex Allergy (Unknown, Verified 06/04/24 09:50) Rash silicone Allergy (Unknown, Verified 06/04/24 09:50) Rash tramadol Allergy (Unknown, Verified 06/04/24 09:50) feels unwell adhesive bandaid Allergy (Unknown, Uncoded 06/04/24 09:50) Rash Tobacco use date assessed: 06/04/24 Dental Screening Dental Screen Date: 08/17/23 HPI HPI Comments History of Present Illness Details 64 year old female with a past medical history of depression, anxiety, GERD, LE edema, PVD, low back pain, sciatica presenting for follow up Had fever to 101 over weekend. Dissipated. Residual cough, minimal wheezing. History of bronchitis. No shortness of breath CV: stable on current medications. On GLP for weight loss. Doing well with it. Chronic pain: Low back, sciatica, chronic wounds. stable on meds-morphine ER, oxycodone. Morphine was increased from 30 BID to 20x2 BID but is having trouble getting the latter. Hospitalized 05/2022 with LE cellulitis. Compression fractures noted at L4-L5. Mulitilevel DDD Leg ulcer-left leg chronic. Follows with [facility]. Follows with vascular. stable lower extremity swelling-back on lasix. Notes restless legs still bad on pramiprexole Thyroid nodules: u/s stable BH: stable on duloxetine. Mom is living in [place] alone. Oldest of five sibling, four of whom don't speak with her. Sees a therapist. [facility] is following. Getting more support from her . Mammo 12/2022 Anemia on labs. She had cologuard 2022 -neg. Is willing to consider colonoscopy if insurance covers ROS see HPI PHYSICAL EXAM: GENERAL: Alert and oriented x 3. NAD EYES: EOMI. Anicteric. HENT: Moist mucous membranes. No scleral icterus. No cervical lymphadenopathy. LUNGS: Clear to auscultation bilaterally. CARDIOVASCULAR: Regular rate and rhythm. No murmur. No JVD. ABDOMEN: Soft, non-tender +bs EXTREMITIES: No edema. Non-tender. SKIN: No rashes or lesions. Warm. NEUROLOGIC: No focal neurological deficits. CN II-XII grossly intact PSYCHIATRIC: Cooperative. Appropriate mood and affect [facility] Medical History Tubular adenoma of colon Severe obesity Restless legs Osteoarthritis Obesity Multiple thyroid nodules Hyponatremia Hypochloremia H/O gastroesophageal reflux (GERD) Elevated troponin Depression COVID-19 Anemia Surgical History H/O tubal ligation H/O: hysterectomy Family History Mother Heart disease Osteoporosis Father Prostate cancer Social History Housing: House Alcohol intake: current Patient Tobacco Use Status: Never used Tobacco e-Cigarette/Vaping Use: Never Used service: No Current occupational status: disabled (industrial accident disability) Cognitive needs: No Hearing needs: No Vision needs: Yes (glasses) Questionnaire Thrive Questionnaire Date Thrive assessed: 04/30/24 I am a: Patient What is your living situation today?: I have a steady place to live Within the past 12 months, did the food you bought not last and you didn't have the money to get more?: Never true Within the past 12 months, did you worry whether your food would run out before you got money to buy more?: Never true Do you have trouble paying for medicines?: No Do you have trouble getting transportation to medical appointments?: No Do you have trouble paying your heating and electricity bill?: No Do you have trouble taking care of your child, family member or friend?: No Do you have trouble with day-to-day activities such as bathing, preparing meals, shopping, managing finances, etc.?: No Are you currently unemployed and looking for a job?: No Are you interested in more education?: No Please select the resources that you would like help with: None Currently or been in a relationship where the following occur: No concerns reported THRIVE Score: 0 ALEX-7 AMB Questionnaire ALEX-7 Date ALEX - 7 assessed: 04/30/24 Source: Developed by Drs. Stoney Madrid, Niya Crowley, Leonard Carrington and colleagues, with an educational urvashi from [employer]. Physical exam (Primary Care) Vital Signs: Last Vital Signs Temp 97.2 F 06/04/24 09:53 Pulse 73 06/04/24 09:53 BP 160/82 H 06/04/24 10:00 Pulse Ox 97 06/04/24 09:53 Oxygen Delivery Method Room Air 06/04/24 09:53 BMI result Body Mass Index 48.6 Tobacco/Smoking Status: Tobacco use Status Tobacco use date assessed 06/04/24 06/04/24 09:40 Patient Tobacco Use Status Never used Tobacco 06/04/24 09:40 e-Cigarette/Vaping Use Never Used 06/04/24 09:40 Thrive Assessment: Date of Thrive Assessment Date Thrive assessed 04/30/24 06/04/24 09:40 Currently or been in a relationship where the following occur: No concerns reported Coding Level of Care Code Est Pt Level 4 (82759) Diagnoses Chronic pain syndrome G89.4 Chronic pain type: chronic pain syndrome Acute cough R05.1 Cough type: acute Assessment & Plan Assessment & Plan (1) Chronic pain: Code(s): G89.29 - Other chronic pain Category: Medical Qualifiers: Chronic pain type: chronic pain syndrome Qualified Code(s): G89.4 - Chronic pain syndrome Plan: She will try to have pharmacy order morhpine 12 hr 20mg x 2 BID in the meantime for the current month she will continue on 30mg bid. (2) Cough: Code(s): R05.9 - Cough, unspecified Category: Medical Qualifiers: Cough type: acute Qualified Code(s): R05.1 - Acute cough Plan: Acute URI/bronchitis/pneumonia-doxycycline and prednisone ordered She will follow up for persistent or worsening symptoms Medications: New doxycycline hyclate 100 mg PO BID 14 tabs 0RF prednisone 40 mg (2 x 20 mg) PO DAILY 6 tabs 0RF Changed From oxycodone 5 mg PO Q8H 7 days PRN 21 tabs 0RF pain To oxycodone 5 mg PO Q8H PRN 56 tabs 0RF pain 28 days Refilled semaglutide (weight loss) (Alexey) administer weeks 13 through 16 of therapy 1.7 mg (0.75 mL) subcut QWEEK 9 mL 3RF morphine ER 30 mg PO BID 60 tabs 0RF 30 days
[2024-06-04 09:53] VITALS: BP 142/80; PULSE 73; TEMP 36.2; O2SAT 97; BMI 48.6
[2024-06-04 10:00] VITALS: BP 160/82
--- OUTSIDE RECORDS SUMMARY | 2024-06-04 10:41 | XMS_ITS ---
Author Organization [facility] Address [address] [place] [address] Care Team Providers Care Production Recovery Operator Name Role Phone Suzi Santos MD Primary Care Provider Nas Mota Unavailable [phone] Encounters Encounter Location Date Provider Diagnosis [address] [address] 05/09/2024 Nas Maldonado Plan Of Treatment Next Appt Details Provider Name:Nas Maldonado , 07/17/2024 10:30:00 AM, [address] [place] [address], [address], Progress Notes * Mabel CHAPA LDOB: 2 (64 yo F)Acc No.[id number]:05/09/2024 Progress Note Patient:?Bhavana CHAPAbeth Randall Provider:?Nas Maldonado DPM :1960???Age:63 Y???Sex:Female D ate:05/09/2024 Address:[address] [place], [place] [phone] Pcp:Suzi Santos MD Subjective: * Chief Complaints: * ??? * Medical History:? Objective: * Vitals:? Assessment: Plan: * Treatment: * Images: * The named appointment provid er may or may not be the originator of this progress note, and it is not deemed complete until electronically signed by the appointment provider. Sign off status: Pending * Provider:Ted Maldonado DPM Date:?2024 Generated for Kusum vann/Sheldon/Mamie on:?06/04/2024 10:41 AM EST
--- OUTSIDE RECORDS SUMMARY | 2024-06-04 10:42 | XMS_ITS ---
Author Organization [facility] Address [address] [place] [address] Care Team Providers Care Car Tester Name Role Phone Suzi Santos MD Primary Care Provider Nas Mota Unavailable [phone] REASON FOR VISIT [facility] 05/16/24 appt Encounters Encounter Location Date Provider [facility] [address] [place] [address] 05/16/2024 Nas Maldonado Plan Of Treatment Next Appt Details Provider Name:Nas Maldonado , 07/17/2024 10:30:00 AM, [address] [address], [place], [address], Progress Notes * Mabel CHAPA LDOB: 2 (63 yo F)Acc No.[id number]:05/16/2024 Patient:?Bhavana CHAPAbeth Randall :1960???Age:63 Y???Sex:Female Address:[address] [place] [address], [phone] * true * Date:? Generated for Printi ng/Faxing/eTransmitting on:?06/04/2024 10:42 AM EST
--- OUTSIDE RECORDS SUMMARY | 2024-06-04 10:42 | XMS_ITS | Patient Health Record ---
[facility] Address [address] [place] [address] Care Team Providers Care Psychodramatist Name Role Phone Suzi Santos MD Primary Care Provider Nas Mota Unavailable [phone] Allergies Allergen (clinical drug ingredient) Drug/Non Drug Allergy documented on EMR Reaction Allergy Type Onset Date Status tramadol Tramadol HCl Unknown Drug Allergy Acti ve Adhesive Unknown Allergy Active bupropion Bupropion Unknown Drug Allergy Active Latex Latex Unknown Allergy Active meloxicam Meloxicam trouble breathing, dizzy, headache Drug Allergy Active Silicone Silicone Unknown Allergy Active Reason For Referral No Information Medications Medication SIG (Take, Route, Frequency, Duration) Notes Start Date End Date Status DULoxetine HCl 30 MG 1 capsule Orally On ce a day for 30 day(s) Active Ibuprofen 200 MG 3 tablets with food or milk as needed Orally every 6 hrs for 5 days Not-Takin g Gabapentin 300 MG 1 capsule Orally Onc e a day for 30 day(s) Active Neurontin 300 MG 1 capsule Orally Thr ee times a day for 5 days Not-Takin g Losartan Potassium 25 MG Oral for 90 Days Active Ammonium Lactate 12 % APPLY 1 APPLICATIO N EXTERNALLY TWICE A DAY 30 DAYS NOT COVD for 30 Active Diflunisal 500 MG 1 tablet with food o r milk Orally Twice a day for 30 day(s) Not-Taking Pramipexole Dihydrochloride Active Multivitamin Not-Balbir ing Naproxen Not-Taking Vitamin D Not-Taking Furosemide Active Extra Strength Acetaminophen 500 MG 2 capsules as needed Orally every 6 hrs for 5 days Not-Taking Morphine Sulfate 30 MG 1 tablet as neede d Orally every 12 hrs Active Walking Boot/Pneumatic As directed Wear Daily for Until further notice Not-Taking Social History Tobacco use other than smoking: Question Answer Notes Are you an other tobacco user? No Problems Problem Type SNOMED Code ICD Code Onset Dates Problem Status W/U Status Risk Notes Problem Plantar wart (06910349) Plantar wart (B07.0) Active confirmed Problem Atherosclerosis of havasupai arteries of the extremities (599330997076651) Atherosclerosis of havasupai artery of both lower extremities, with unspecified presence of clinical manifestation (I70.203) Active confirmed Vital Signs Height 5ft 2in in 11/08/2023 Weight 255 lbs 11/08/2023 BMI 46.64 kg/m2 11/08/2023 Procedures Procedure Date Ordered Date Performed Result Body Sit e 03680-HGADSAJ NAIL, 6 OR MORE 07/17/2023 N/A 03666-Oieq Destruction, 1-07/17/2023 N/A 90350-XHPG SKIN LESIONS, OVER 4 07/17/2023 N/A 75735-Itjfflxbx, Toes 07/17/2023 N/A 22538-Glkt Destruction, 1-14 10/05/2023 N/A 57356 - Tenotomy, open flexor 10/05/2023 N/A 81133-SZATBTZ NAIL, 6 OR MORE 11/08/2023 N/A 38464-Zzkb Destruction, 1-11/08/2023 N/A 62982-JXSB SKIN LESIONS, OVER 4 11/08/2023 N/A Encounters Encounter Location Date Provider Diagnosis [address] [address] 07/17/2023 Nas Maldonado Atherosclerosis of havasupai artery of both lower extremities, with unspecified presence of clinical manifestation I70.203 ; Plantar wart B07.0 ; Tinea unguium B35.1 ; Pain in right toe(s) M79.674 ; Pain in left toe(s) M79.675 ; Left foot pain M79.672 ; Hammer toe of right foot M20.41 and Xerosis of skin L85.[address] [address] 09/18/2023 Nas Maldonado Hammer toe of right foot M20.41 and Xerosis of skin L85.[address] [address] 10/05/2023 Nas Maldonado Hammer toe of right foot M20.41 ; Plantar wart B07.0 and Left foot pain M79.[address] [address] 11/08/2023 Nas Maldonado Atherosclerosis of havasupai artery of both lower extremities, with unspecified presence of clinical manifestation I70.203 ; Plantar wart B07.0 ; Tinea unguium B35.1 ; Pain in right toe(s) M79.674 ; Pain in left toe(s) M79.675 ; Left foot pain M79.672 and Hammer toe of right foot M20.[address] [address] 09/11/[address] [address] [facility]/02/20[facility] [address] [address] 02/07/2024 [facility] [address] [address] 05/09/2024 [facility] [address] [address] 05/16/2024 Nas Maldonado Assessments Encounter Date Diagnosis (ICD Code) Assessment Notes Treatment Notes Treatment Clinical Notes Section Notes 07/17/2023 Plantar wart (ICD-10 - B07.0) 07/17/2023 Atherosclerosis of havasupai artery of both lower extremities, with unspecified presence of clinical manifestation (ICD-10 - I70.203) 09/18/2023 Hammer toe of right foot (ICD-10 - M20.41) Resistant to previous conservative treatment,Precious on for Surgery (4) 10/05/2023 Plantar wart (ICD-10 - B07.0) 10/05/2023 Hammer toe of right foot (ICD-10 - M20.41) 11/08/2023 Plantar wart (ICD-10 - B07.0) 11/08/2023 Atherosclerosis of havasupai artery of both lower extremities, with unspecified presence of clinical manifestation (ICD-10 - I70.203) 11/08/2023 Tinea unguium (ICD-10 - B35.1) 10/05/2023 Left foot pain (ICD-10 - M79.672) 09/18/2023 Xerosis of skin (ICD-10 - L85.3) 07/17/2023 Tinea unguium (ICD-10 - B35.1) 07/17/2023 Pain in right toe(s) (ICD-10 - M79.674) 11/08/2023 Pain in right toe(s) (ICD-10 - M79.674) 11/08/2023 Pain in left toe(s) (ICD-10 - M79.675) 07/17/2023 Pain in left toe(s) (ICD-10 - M79.675) 07/17/2023 Left foot pain (ICD-10 - M79.672) 11/08/2023 Left foot pain (ICD-10 - M79.672) 11/08/2023 Hammer toe of right foot (ICD-10 - M20.41) Improvement 07/17/2023 Hammer toe of right foot (ICD-10 - M20.41) 07/17/2023 Xerosis of skin (ICD-10 - L85.3) Plan Of Treatment Pending Test Test Name Order Date 73493-NFJJVQM NAIL, 6 OR MORE 07/17/2023 03493-TINHEAS NAIL, 6 OR MORE 11/08/2023 12278-Quzf Destruction, 1-14 11/08/2023 14751-Nkhk Destruction, 1-14 07/17/2023 56104-Oxcc Destruction, 1-14 01/24/2022 84360-Jfqc Destruction, 1-14 10/05/2023 21562-IKGU SKIN LESIONS, OVER 4 01/25/20 22 07480-CGJE SKIN LESIONS, OVER 4 11/08/19 24 20351-FDGS SKIN LESIONS, OVER 4 07/17/19 24 85600-Ysyyxlwrv, Toes 07/17/2023 45243 - Tenotomy, open flexor 10/05/2023 Next Appt Details Provider Name:Nas Maldonado , 07/17/2024 10:30:00 AM, [address] [facility], [address], [place], [address], Insurance Providers Payer Name Payer Address Payer Phone Subscriber Number Group Number Insured Name Patient Relationship to Insured Coverage Start Date Coverage End Date [facility] [address] [place] [address] [id number] Mabel Urena Self - patient is the insured Medical (General) History Medical History History ICD Code Chicken pox Depression Measles Mumps Poor circulation - vein Thyroid disorder Restless leg Arthritis Surgical History Surgery Date(Month/Year) hysterectomy 2010 gall bladder 2007 hammer toe 05/24/2017 vein surgery, leg 04/2023 Hospitalization History Reason Date(Month/Year) [facility] 05/24/17
--- OUTSIDE RECORDS SUMMARY | 2024-06-04 10:42 | XMS_ITS | Clinical Summary ---
Author Organization [facility] Address [address] [place] [address] Care Team Providers Care Gum Maker Name Role Phone Unavailable Primary Care Provider Unavailabl e Social History Tobacco Use Types Packs/Day Years Used Date Smoking Tobacco: Never Assessed Comments Unknown Sex and Gender Information Value Date Recorded Sex Assigned at Not on file Legal Sex Female 8:12 AM EST Gender Identity Not on file Sexual Orientation Not on file Plan of Treatment Health Maintenance Due Date Last Done Comments Breast Cancer Screening 1960 Colorectal Cancer Screening: Annual FOBT 2010 Colorectal Cancer Screening: Colonoscopy 2010 Colorectal Cancer Screening: Sigmoidoscopy 2010 Influenza Vaccine (#1) 2023 Hepatitis B Vaccine Aged Out No longe r eligible based on patient's age to complete this topic Pneumococcal Vaccine: Pediat rics (0 to 5 Years) and At-Risk Patients (6 to 64 Years) Aged Out No longer eligible b ased on patient's age to complete this topic Insurance [facility]
--- OUTSIDE RECORDS SUMMARY | 2024-06-04 10:42 | XMS_ITS ---
Author Organization [facility] Address [address] [place] [address] Care Team Providers Care Power Electronics Engineer Name Role Phone Suzi Santos MD Primary Care Provider Nas Mota Unavailable [phone] Encounters Encounter Location Date Provider Diagnosis [address] [address] 05/16/2024 Nas Maldonado Plan Of Treatment Next Appt Details Provider Name:Nas Maldonado , 07/17/2024 10:30:00 AM, [address] [place] [address], [address], Progress Notes * Mabel CHAPA LDOB: 2 (64 yo F)Acc No.[id number]:05/16/2024 Progress Note Patient:?Bhavana CHAPAbeth Randall Provider:?Nas Maldonado DPM :1960???Age:63 Y???Sex:Female D ate:05/16/2024 Address:[address] [place], [place] [address] Pcp:Suzi Santos MD Subjective: * Chief Complaints: [...]
== END 2024-06-04 10:19 | disposition home or self-care (01) ==
PROVIDERS: PCP Internal Medicine; Visit Provider Internal Medicine
DX: G89.4 Chronic pain syndrome (principal); R05.1 Acute cough

== ENCOUNTER → 2024-06-04 09:33 | Outpatient (BNVA) | payer OTHER, SELFPAY | PROVIDERS: PCP Internal Medicine; Visit Provider Internal Medicine ==

== ENCOUNTER 2024-08-13 11:39 | Outpatient (REF) | payer OTHER, SELFPAY ==
--- OUTSIDE RECORDS SUMMARY | 2024-08-13 13:21 | XMS_ITS | Clinical Summary ---
Author Organization [facility] Address [address] [place] [address] Care Team Providers Care Pool Table Mechanic Name Role Phone Unavailable Primary Care Provider [...] Colonoscopy 2010 Colorectal Cancer Screening: Sigmoidoscopy 2010 Pneumococcal Vaccine: 50+ Ye ars (1 - PCV) 2011 Influenza Vaccine (Season Ended) 2024 Hepatitis B Vaccine Aged Out No longe r eligible based on patient's age to complete this topic Insurance [facility]
--- OUTSIDE RECORDS SUMMARY | 2024-08-13 13:21 | XMS_ITS ---
Author Organization [facility] Address [address] [place] [address] Care Team Providers Care Coal Shooter Name Role Phone Suzi Santos MD Primary Care Provider Nas Mota Unavailable [phone] REASON FOR VISIT Reschedule Encounters Encounter Location Date Provider Diagnosis [facility] [address] [place] [address] 07/15/2024 Nas Maldonado Plan Of Treatment No Information Progress Notes * Mabel CHAPA LDOB: 2 (64 yo F)Acc No.[id number]:07/15/2024 Patient:?SAMMI Mabel Randall :1960???Age:64 Y???Sex:Female Address:[address] [place] [address], [address] * true * Date:? Generated for Printi ng/Faraymondg/eTransmitting on:?08/13/2024 01:20 PM EDT
--- OUTSIDE RECORDS SUMMARY | 2024-08-13 13:21 | XMS_ITS ---
Author Organization [facility] Care Team Providers Care Cnc Lathe Programmer Name Role Phone Maria Dolores Fair Unavailable Unavailable Chelsea Morales Unavailable Unavailable Alvin Hameed Unavailable Unavailable Bridgett Hall Unavailable Unavailable Henrik Parks Unavailable Unavailable Marissa Mauricio Unavailable Unavailable Allergies and adverse reactions Code CodeSystem Substance Reaction Severity StartDate Concern Status Triad paste Unknown 05/16/2022 active 58020 RXNORM traMADol Unknown 05/16/2022 active Latex Unknown 05/16/2022 active Hydrogel Unknown 05/19/2022 active 05567 RXNORM buPROPion Unknown 05/16/2022 active Adhesive Tape Unknown 05/16/2022 active Care Team Name Role Address Phone Organization Dates Alvin Hameed PCP [address] [facility] [address], [place], [address], [place] (Office): [facility] 05/17/2022 - 06/15/2022 Maria Dolores Fair Attending Physician [address] [place], [address], [place]Office[place] [facility] 05/17/2022 - 06/15/2022 Chelsea Morales Attending Physician [address] [facility] [address], [place], [address], [place] (Office): [facility] 05/17/2022 - 06/15/2022 Bridgett Hall Attending Physician [address], [place], [address], [place] (Office): [facility] 05/17/2022 - 06/15/2022 Henrik Parks Attending Physician [address] [facility], [place], [address], [place] (Office): [facility] 05/17/2022 - 06/15/2022 Marissa Mauricio Attending Physician [address] [place], [address], [place] (Office): [facility] 05/17/2022 - 06/15/2022 Immunizations Immunization Status Vaccine Details Vaccine Code CodeSystem Misael e Notes Influenza completed Influenza, split virus, trivalent, injectable, contains preservative 141 CVX created date: 05/17/2022 administered date: 04/04/2022 SARS-COV-2 (COVID-19) completed SARS-COV-2 (COVID-19) vaccine, mRNA, spike protein, LNP, preservative free, 30 mcg/0.3mL dose Mfg: [employer] Richard Step 1 of Multi-step 208 CVX created date: 05/17/2022 administered date: 08/26/2020 Mental Status Section Date Assessment Total Score Description 06/15/2022 BIMS 15 cognitively int act CAM 0 No delirium ind icated PHQ-9 00 05/22/2022 BIMS 15 cognitively int act CAM 0 No delirium ind icated PHQ-9 03 minimal depress ion Problems Problem # Description Date of onset Resolved Date Code CodeSystem Concern Status 1 ANEMIA, UNSPECIFIED 05/16/[address] active 2 CELLULITIS OF LEFT LOWER LIMB 05/16/[address] active 3 CELLULITIS OF RIGHT LOWER LIMB 05/16/[address] active 4 DEPRESSION, UNSPECIFIED 05/16/[address] active 5 DIFFICULTY IN WALKING, NOT ELSEWHERE CLASSIFIED 05/16/[address] active 6 GASTRO-ESOPHAGEAL REFLUX DISEASE WITHOUT ESOPHAGITIS 05/16/[address] active 7 HISTORY OF FALLING 05/16/[address] active 8 HYPO-OSMOLALITY AND HYPONATREMIA 05/16/[address] active 9 LYMPHEDEMA, NOT ELSEWHERE CLASSIFIED 05/16/[address] active 10 MORBID (SEVERE) OBESITY DUE TO EXCESS CALORIES 05/16/[address] active 11 MUSCLE WEAKNESS (GENERALIZED) 05/16/[address] active 12 OTHER DISORDERS OF ELECTROLYTE AND FLUID BALANCE, NOT ELSEWHERE CLASSIFIED 05/16/[address] active 13 OTHER SPECIFIED ABNORMALITIES OF PLASMA PROTEINS 05/16/[address] active 14 PRIMARY OSTEOARTHRITIS, UNSPECIFIED SITE 05/16/[address] active 15 RESTLESS LEGS SYNDROME 05/16/[address] active Reason for Referral No Reasons for Referral Entered Social History Social History Observation Description Start Date End Date Code Code System Current Smoking Status Tobacco smoking consumption unknown 749135758 SNOMED CT Sex Assigned At Female 1960 73972-4 [facility] Vital Signs Code Code System Vitals Name Values and Units Timing Information 9279-1 [facility] Respiratory Rate Value=18.0 Units=/m in 06/15/2022 05128-4 [facility] Pain Level Value=2.0 06/15/2022 91865-5 [facility] Weight Zhplz=725.2 Units=Lbs 11/2022 8462-4 [facility] Blood Pressure-Diastolic Value=65 Un its=mmHg 06/15/2022 8480-6 [facility] Blood Pressure-Systolic Vaedh=458 Un its=mmHg 06/15/2022 8310-5 [facility] Body Temperature Value=97.8 Units=?? F 06/15/2022 8867-4 [facility] Heart rate Value=87.0 Units=/min 11/2022 35195-5 [facility] O2 % dC Oximetry Value=98.0 Units= % 06/15/2022 8302-2 [facility] Height Value=62.0 Units=Inches 05/18/2022
--- OUTSIDE RECORDS SUMMARY | 2024-08-13 13:21 | XMS_ITS ---
Author Organization [facility] Care Team Providers Care Road Test Examiner Name Role Phone Colleen Cam Unavailable Unavailable Maria Dolores Fair Unavailable Unavailable Brenda Deleon Unavailable Unavailable Bridgett Dillon Unavailable Unavailable Anne Rivera Unavailable Unavailable Poonam Salmeron Unavailable Unavailable Allergies and adverse reactions Code CodeSystem Substance Reaction Severity StartDate Concern Status 04670 RXNORM traMADol Unknown 04/06/2022 active Latex Unknown 04/06/2022 active 33787 RXNORM buPROPion Unknown 04/06/2022 active Adhesive Tape Unknown 04/06/2022 active Care Team Name Role Address Phone Organization Dates Brenda Deleon PCP [address] [place] [address], [address], [place] (Office): : [facility] 04/06/2022 - 04/21/2022 Colleen Cam Attending Physician [address] [place], [place], [facility], [place] (Office): [phone] [facility] 04/06/2022 - 04/21/2022 Maria Dolores Fair Attending Physician [address] [place], [address], [place] (Office): [facility] 04/06/2022 - 04/21/2022 Bridgett Dillon Attending Physician [address] [place] [address], [address], [place]Office): [facility] 04/06/2022 - 04/21/2022 Anne Rivera Attending Physician [address] [place] [address], [address], [place]Office): [facility] 04/06/2022 - 04/21/2022 Poonam Salmeron Attending Physician [address] [place], [address], [place]Office): : [facility] 04/06/2022 - 04/21/2022 Immunizations Immunization Status Vaccine Details Vaccine Code CodeSystem Misael e Notes Influenza completed Influenza, split virus, trivalent, injectable, contains preservative 141 CVX created date: 04/06/2022 administere d date: 04/04/2022 TB 1 Step Mantoux (PPD) completed tuberculin skin test; unspecified formulation lotNumber: [id number] expiry: 09/08/2024 Mfg: [employer] Given 0.1 ml Right Forearm intradermally 98 CVX created date: 04/16/2022 consent date: 04/16/2022 administere d date: 04/16/2022 SARS-COV-2 (COVID-19) completed SARS-COV-2 (COVID-19) vaccine, mRNA, spike protein, LNP, bivalent, preservative free, 10 mcg/0.2 mL dose, guillermo-sucrose formulation Mfg: Ascade Step 1 of Multi-step 301 CVX created date: 04/06/2022 administere d date: 08/25/2020 Mental Status Section Date Assessment Total Score Description 04/21/2022 BIMS 15 cognitively int act CAM 0 No delirium ind icated PHQ-9 04 minimal depress ion 04/12/2022 BIMS 15 cognitively int act CAM 0 No delirium ind icated PHQ-9 04 minimal depress ion Problems Problem # Description Date of onset Resolved Date Code CodeSystem Concern Status 1 ANEMIA, UNSPECIFIED [address] active 2 ANXIETY DISORDER, UNSPECIFIED [address] active 3 GASTRO-ESOPHAGE AL REFLUX DISEASE WITHOUT ESOPHAGITIS [address] active 4 LYMPHEDEMA, NOT ELSEWHERE CLASSIFIED [address] active 5 MAJOR DEPRESSIVE DISORDER, RECURRENT, UNSPECIFIED [address] active 6 MORBID (SEVERE) OBESITY DUE TO EXCESS CALORIES [address] active 7 NON-PRESSURE CHRONIC ULCER OF OTHER PART OF RIGHT LOWER LEG WITH UNSPECIFIED SEVERITY [address] active 8 NON-PRESSURE CHRONIC ULCER OF UNSPECIFIED PART OF LEFT LOWER LEG WITH UNSPECIFIED SEVERITY [address] active 9 OTHER LOW BACK PAIN [address] active 10 RESTLESS LEGS SYNDROME [address] active 11 URINARY TRACT INFECTION, SITE NOT SPECIFIED [address] active 12 WEDGE COMPRESSION FRACTURE OF FOURTH LUMBAR VERTEBRA, SUBSEQUENT ENCOUNTER FOR FRACTURE WITH ROUTINE HEALING [address] active Reason for Referral No Reasons for Referral Entered Social History Social History Observation Description Start Date End Date Code Code System Current Smoking Status Tobacco smoking consumption unknown 998662739 SNOMED CT Sex Assigned At Female 1960 14933-0 [facility] Vital Signs Code Code System Vitals Name Values and Units Timing Information 25911-4 [facility] Pain Level Value=9.0 04/21/2022 9279-1 [facility] Respiratory Rate Value=18.0 Units=/m in 04/21/2022 8462-4 [facility] Blood Pressure-Diastolic Value=88 Un its=mmHg 04/21/2022 8480-6 [facility] Blood Pressure-Systolic Fhsoi=380 Un its=mmHg 04/21/2022 8310-5 [facility] Body Temperature Value=97.3 Units=?? F 04/21/2022 8867-4 [facility] Heart rate Value=82.0 Units=/min 03/2023 71889-9 [facility] O2 % BldC Oximetry Value=95.0 Units= % 04/21/2022 31495-0 [facility] Weight Aoqqk=405.0 Units=Lbs 02/2023 8302-2 [facility] Height Value=62.0 Units=Inches 04/07/2022
--- OUTSIDE RECORDS SUMMARY | 2024-08-13 13:21 | XMS_ITS | Continuity of Care Document ---
Author Organization [facility] Address [address] [place] [address] Phone Care Team Providers Care City Letter Carrier Name Role Phone Bryant MANUEL, ELYSE, Stoney LYNN Unavailable U navailable Allergies, Adverse Reactions, Alerts Substance Reaction Status Criticality TAPE, OCCLUSIVE ADHESIVE Active No Information BUPROPION HCL Active No Information tramadol Active No Information Procedures Procedure Date Duplex Scan-extrem Veins; Duplex Scan-extrem Veins; / 24 Endovenous Rf, 1st Vein Office/Outpt E&M Established 15 Mins Dec Duplex Scan-extrem Veins; 23 Office/Outpt E&M Established 15 Mins Dec Advance Directives Directive Yes / No Effective Date File Name No Information Encounters Encounter Description Practice Location Reason(s) For Visit Diagnoses Date Provider Providers Copied on Encounter [facility], [address], [place], [id number], [place] tel:[phone] [facility] [place] Pain in left leg 4 Bryant MANUEL, ELYSE, LEAH Lua. [address], [place], [place], [id number] , [place]. tel:[phone] Referring Provider: Suzi Augustin, [facility] [address] [place], [address]. tel:[phone] [facility], [address] [place] [address] [address] [place], [id number], [place] tel:[phone] [facility] [place] Encounter for follow-up examination after completed treatment for conditions other than malignant nePain in left leg 4 Bryant MANUEL RVT, LEAH Lua. [address] [place] [address], [facility] [place] [id number] , [place]. tel:[phone] Referring Provider: Suzi Augustin, [address], [address]. tel:[phone] [facility], [address] [place] [address] Dr [address] [place], [id number], [place] tel:[phone] [facility] Varicose veins of left lower extremity with other complications 4 Bryant MANUEL RVT, LEAH Lua. [address] [place] [address], [facility] [place] [id number] , [place]. [phone] Referring Provider: Suzi Augustin, [address], [address]. tel:[phone] Office/Outpt E&M Established 15 Mins [facility], [address] [place] [address] Dr [address] [place], [id number], [place] tel:[phone] [facility] - [facility] Non-pressure chronic ulcer of left calf with unsp severityNon-p ressure chronic ulcer of right calf with unsp severityChron ic venous htn w oth comp of bilateral low extrmLymphede ma, not elsewhere classified 3 Aaron MANUEL FACS ELYSE Streeter. [address] [place] [address], [facility] [place], [address], [place]. tel:[phone] Referring Provider: Suzi Augustin, [address], [address]. tel:[phone] [facility], [address] [place] [address] [address], [place], [id number], [place] tel:[phone] [facility] Chronic venous htn w ulcer and inflammation of l low extrem Sep-2 3 Aaron MANUEL FACS RVT RPGELA Streeter. [address] [facility] [address], [place], [address], . tel:[phone] Referring Provider: Suzi Augustin, [address], [address]. tel:[phone] Office/Outpt E&M Established 15 Mins [facility], [address] [place] [address] Dr [address], [id number], tel:[phone] [facility] Body mass index (BMI) 50-59.9 , adultChronic venous htn w oth comp of bilateral low extrmChronic venous htn w ulcer and inflam of bilateral low extrm Sep-2 3 Aaron MANUEL FACS RVT LEAH Streeter. [address] [facility] [address], [place], [address], [place]. tel:[phone] Referring Provider: Suzi Augustin, [address], [address]. tel:[phone] Family History Family Member Type Diagnosis Age At Onset No Information Payers Payer name Insurance type Covered libertarian ID Tripp ledesma([employer] [facility] [id number] Social History Type Description Quantity Date Captured Comments Sex Female Smoking Status No Information Chief Complaint And Reason For Visit No Information Reason For Referral Reason For Referral No Information History Of Present Illness Encounter Date Complaint History Of Prese nt Illness No Information Functional Status Date Functional Assessmen t No Information Instructions Date Instruction Additional Infor mation Dietary needs education Related to Body mass index [BMI] 50.0-59.9, adult Assessments Type Assessment Date No Information Patient Care Teams Name Effective Dates (start - stop) Status Members No Information
--- OUTSIDE RECORDS SUMMARY | 2024-08-13 13:21 | XMS_ITS ---
Author Organization [facility] Address [address] [place] [address] Care Team Providers Care Rn Endocrinology Name Role Phone Suzi Santos MD Primary Care Provider Nas Mota Unavailable [phone] Encounters Encounter Location Date Provider Diagnosis [facility] [address] [place] [address] 07/11/2024 Nas Maldonado Plan Of Treatment No Information Progress Notes * Mabel CHAPA LDOB: 2 (64 yo F)Acc No.[id number]:07/11/2024 Progress Note Patient:Mabel SMART Provider:?Nas Maldonado DPM :1960???Age:64 Y???Sex:Female D ate:07/11/2024 Address:[address] [place], [place] [address] Pcp:Suzi Santos MD Subjective: * Chief Complaints: * ??? * Medical History:? Objective: * Vitals:? Assessment: Plan: * Treatment: * Images: * The named appointment provid er may or may not be the originator of this progress note, and it is not deemed complete until electronically signed by the appointment provider. Sign off status: Pending * Provider:?Nas Maldonado DPM Date:?2024 Generated for Kusum vann/Sheldon/eTransmitting on:?08/13/2024 01:20 PM EDT
--- OUTSIDE RECORDS SUMMARY | 2024-08-13 13:21 | XMS_ITS | Patient Health Record ---
[facility] Address [address] [place] [address] Care Team Providers Care Cnc Lathe Machinist Name Role Phone Suzi Santos MD Primary Care Provider Nas Mota Unavailable [phone] Allergies Allergen (clinical drug ingredient) Drug/Non Drug [...] W/U Status Risk Notes Problem Plantar wart (80928885) Plantar wart (B07.0) Active confirmed Problem Atherosclerosis of elem arteries of the extremities (009360194144599) Atherosclerosis of elem artery of both lower extremities, with unspecified presence of clinical manifestation (I70.203) Active confirmed Vital Signs Height 5ft 2in in 11/08/2023 Weight 255 lbs 11/08/2023 BMI 46.64 kg/m2 11/08/2023 Procedures Procedure Date Ordered Date Performed Result Body Sit e 20211-Vgwk Destruction, 1-14 10/05/2023 N/A 25300 - Tenotomy, open flexor 10/05/2023 N/A 28099-OEDOFSM NAIL, 6 OR MORE 11/08/2023 N/A 57923-Gwhn Destruction, 1-11/08/2023 N/A 52623-ONCF SKIN LESIONS, OVER 4 11/08/2023 N/A Encounters Encounter Location Date [facility] [address] 09/18/2023 Nas Erica Hammer toe of right foot M20.41 and Xerosis of skin L85.[address] [address] 10/05/2023 Nas Erica Hammer toe of right foot M20.41 ; Plantar wart B07.0 and Left foot pain M79.[address] [address] 11/08/2023 Nas Erica Atherosclerosis of elem artery of both lower extremities, with unspecified presence of clinical manifestation I70.203 ; Plantar wart B07.0 ; Tinea unguium B35.1 ; Pain in right toe(s) M79.674 ; Pain in left toe(s) M79.675 ; Left foot pain M79.672 and Hammer toe of right foot M20.41 [facility] [address] [place] [address] 09/11/2023 Nas Maldonado [facility] [address] [address] 11/02/2023 Nas Erica [facility] [address] [address] 02/07/2024 Nashenrietta Maldonado [facility] [address] [address] 05/09/2024 Nas Erica [facility] [address] [address] 05/16/2024 Nas Erica [facility] [address] 07/15/2024 Nas Maldonado Assessments Encounter Date Diagnosis (ICD Code) Assessment Notes Treatment Notes Treatment Clinical Notes Section Notes 09/18/2023 Hammer toe of right foot (ICD-10 - M20.41) Resistant to previous conservative treatment,[facility] on for Surgery (4) 10/05/2023 Plantar wart (ICD-10 - B07.0) 10/05/2023 Hammer toe of right foot (ICD-10 - M20.41) 11/08/2023 Plantar wart (ICD-10 - B07.0) 11/08/2023 Atherosclerosis of elem artery of both lower extremities, with unspecified presence of clinical manifestation (ICD-10 - I70.203) 11/08/2023 Tinea unguium (ICD-10 - B35.1) 10/05/2023 Left foot pain (ICD-10 - M79.672) 09/18/2023 Xerosis of skin (ICD-10 - L85.3) 11/08/2023 Pain in right toe(s) (ICD-10 - M79.674) 11/08/2023 Pain in left toe(s) (ICD-10 - M79.675) 11/08/2023 Left foot pain (ICD-10 - M79.672) 11/08/2023 Hammer toe of right foot (ICD-10 - M20.41) Improvement Plan Of Treatment Pending Test Test Name Order Date NAIL, 6 OR MORE 07/17/2023 13321-KNOWICA NAIL, 6 OR MORE 11/08/2023 09324-Kawu Destruction, -11/08/2023 97700-Hyiz Destruction, -07/17/2023 84562-Ahey Destruction, -14 01/24/2022 02486-Nvzh Destruction, -10/05/2023 67272-LHUE SKIN LESIONS, OVER 4 01/25/20 22 11412-QTNC SKIN LESIONS, OVER 4 11/08/19 24 92199-CMKO SKIN LESIONS, OVER 4 07/17/19 24 68266-Lymbkfbea, Toes 07/17/2023 56131 - Tenotomy, open flexor 10/05/2023 Insurance Providers Payer Name Payer Address Payer Phone Subscriber Number Group Number Insured Name Patient Relationship to Insured Coverage Start Date Coverage End Date [facility] [address] [place] [id number] Mabel Urena Self - patient is the insured Medical (General) History Medical History History ICD Code Chicken pox Depression Measles Mumps Poor circulation - vein Thyroid disorder Restless leg Arthritis Surgical History Surgery Date(Month/Year) hysterectomy 2010 gall bladder 2007 hammer toe 05/24/2017 vein surgery, leg 04/2023 Hospitalization History Reason Date(Month/Year) [facility] 05/24/17
--- OUTSIDE RECORDS SUMMARY | 2024-08-13 13:21 | XMS_ITS ---
Author Organization [facility] Address [address] [place] [address] Care Team Providers Care Floral Merchandiser Name Role Phone Suzi Santos MD Primary Care Provider Nas Mota Unavailable [phone] Encounters Encounter Location Date Provider Diagnosis [facility] [address] [place] [address] 07/17/2024 Nas Maldonado Plan Of Treatment No Information Progress Notes * Mabel CHAPA LDOB: 2 (64 yo F)Acc No.[id number]:07/17/2024 Progress Note Patient:Mabel SMART Provider:?Nas Maldonado DPM :1960???Age:64 Y???Sex:Female D ate:07/17/2024 Address:[address] [place], [place] [phone] Pcp:Suzi Santos MD Subjective: * Chief Complaints: [...]
[2024-08-13 14:38] LABS: MANUAL DIFF FLAG NO
[2024-08-13 14:46] LABS: Basophils Percent Auto 0.2 % (0-2); Eosinophils Absolute Auto 0.1 X10*3/uL (0.0-0.4); Eosinophils Percent Auto 1.3 % (0-4); Hematocrit 29.7 % (37.0-47.0); Hemoglobin 9.2 g/dl (12.0-16.0); Imm Gran Abs Auto 0.02 X10*3/uL (0.00-0.03); Imm Gran Pct Auto 0.4 % (0.0-0.4); Lymphocytes Absolute Auto 1.1 X10*3/uL (1.2-4.9); Lymphocytes Percent Auto 22.6 % (20-40); Mean Corpuscular Hemoglobin 25.3 pg (27.0-33.0); Mean Corpuscular Volume 81.8 fL (80.0-98.0); Mean Platelet Volume 11.4 fL (9.4-12.3); Monocytes Absolute Auto 0.5 X10*3/uL (0.1-1.2); Monocytes Percent Auto 10.3 % (2-11); Neutrophils Absolute Auto 3.1 x10*3/uL (2.0-8.3); Neutrophils Percent Auto 65.2 % (45-73); Platelet Count 231 X10*3/uL (160-400); Red Blood Count 3.63 X10*6/uL (4.20-5.50); Red Cell Distribution Width 15.9 % (11.0-16.0); White Blood Count 4.7 X10*3/uL (4.8-10.8)
[2024-08-13 15:10] LABS: Alanine Aminotransferase < 6 U/L (0-31); Albumin Level 3.5 g/dL (3.5-5.0); Anion Gap 11 (12-20); Aspartate Amino Transferase 21 U/L (5-31); Bilirubin Total 0.3 mg/dL (0.0-1.0); Blood Urea Nitrogen 9 mg/dL (9-16); Calcium 8.2 mg/dL (8.4-10.2); Carbon Dioxide 25 mmol/L (22-29); Chloride 108 mmol/L (96-108); Estimated Glomerular Filt Rate > 60; Glucose Random 88 mg/dL (60-115); Potassium 4.1 mmol/L (3.3-5.1); Sodium 140 mmol/L (135-145)
[2024-08-13 18:05] LABS: Alkaline Phosphatase 135 U/L (39-117)
== END 2024-08-13 11:40 | disposition home or self-care (01) ==
LOC: HO.WFDLDS 11:39
PROVIDERS: Referring Provider Nurse Practitioner; Visit Provider Internal Medicine
DX: L08.9 Local infection of the skin and subcutaneous tissue, unspecified (principal); I10 Essential (primary) hypertension; D64.9 Anemia, unspecified
CPT/HCPCS: 36415; 80053; 85025

== ENCOUNTER 2024-08-26 15:42 | Outpatient (AMB) | payer OTHER, SELFPAY ==
--- OUTSIDE RECORDS SUMMARY | 2024-08-26 15:44 | XMS_ITS | Clinical Summary ---
Author Organization [facility] Address [address] [place] [address] Care Team Providers Care Robotic Welder Name Role Phone Unavailable Primary Care Provider [...] patient's age to complete this topic Insurance [facility]
--- OUTSIDE RECORDS SUMMARY | 2024-08-26 15:45 | XMS_ITS ---
Author Organization [facility] Address [address] [place] [address] Care Team Providers Care Shop Steward Name Role Phone Suzi Santos MD Primary Care Provider Nas Mota Unavailable [phone] Encounters Encounter Location Date Provider Diagnosis [facility] [address] [place] [address] 07/17/2024 Nas Maldonado Plan Of Treatment No Information Progress Notes * Mabel CHAPA LDOB: [birth year] (64 yo F)Acc No.[id number]:07/17/2024 Progress Note Patient:Mabel SMART Provider:?Nas Maldonado DPM :1960???Age:64 Y???Sex:Female D ate:07/17/2024 Address:[address] [place], [place] [phone] Pcp:Suzi Santos MD Subjective: * Chief Complaints: [...] Maldonado DPM Date:?2024 Generated for Kusum vann/Sheldon/eTransmitting on:?08/26/2024 03:45 PM EDT
--- OUTSIDE RECORDS SUMMARY | 2024-08-26 15:45 | XMS_ITS ---
Author Organization [facility] Address [address] [place] [address] Care Team Providers Care Software Architect Name Role Phone Suzi Santos MD Primary Care Provider Nas Mota Unavailable [phone] Encounters Encounter Location Date Provider Diagnosis [facility] [address] [place] [address] 07/11/2024 Nas Maldonado Plan Of Treatment No Information Progress Notes * Mabel CHAPA LDOB: [birth year] (64 yo F)Acc No.[id number]:07/11/2024 Progress Note Patient:Mabel SMART Provider:?Nas Maldonado DPM :1960???Age:64 Y???Sex:Female D ate:07/11/2024 Address:[address] [place], [place] [address] Pcp:Suzi Santos MD Subjective: * Chief Complaints: [...] DPM Date:?2024 Generated for Kusum vann/Sheldon/eTransmitting on:?08/26/2024 03:44 PM EDT
--- OUTSIDE RECORDS SUMMARY | 2024-08-26 15:45 | XMS_ITS | Continuity of Care Document ---
Author Organization [facility] Address [address] [place] [address] Phone Care Team Providers Care Mechanical Piping Designer Name Role Phone Bryant MANUEL, ELYSE, Stoney [...] Providers Copied on Encounter [facility], [address], [place], [id number], [place] tel:[phone] [place] Pain in left leg 4 Bryant MANUEL, ELYSE, LEAH Lua. [address], [address], [place], [place], [id number] , [place]. tel:[phone] Referring Provider: Suzi Augustin, [facility] [address] [place], [address]. tel:[phone] [facility], [address] [place] [address] Dr Manley [address], [id number], [place] tel:[phone] [facility] [place] Encounter for follow-up examination after completed treatment for conditions other than malignant nePain in left leg 4 Bryant MANUEL RVT, LEAH Lua. [address] [place] [address], [facility] [place] [id number] , [place]. tel:[phone] Referring Provider: Suzi Augustin, [address], [address]. tel:[phone] [facility], [address] [place] [address] Dr Manley [address] [place], [id number], [place] tel:[phone] [facility] - [facility] Varicose veins of left lower extremity with other complications 4 Bryant MANUEL RVT, LEAH Lua. [address] [place] [address], [facility] [place], [id number] , [place]. [phone] Referring Provider: Suzi Augustin, [address], [address]. tel:[phone] Office/Outpt E&M Established 15 Mins [facility], [address] [place] [address] Dr Manley [address], [id number], [place] tel:[phone] CVR - [facility] Non-pressure chronic ulcer of left calf with unsp severityNon-p ressure chronic ulcer of right calf with unsp severityChron ic venous htn w oth comp of bilateral low extrmLymphede [place], not elsewhere classified 3 Aaron MANUEL FACS ELYSE Streeter. [address] [place] [address], [facility] [place], [address], [place]. tel:[phone] Referring Provider: Suzi Augustin, [address], [address]. tel:[phone] [facility], [address] [place] [address] Dr Manley [address], [place], [id number], [place] tel:[phone] [facility] Chronic venous htn w ulcer and inflammation of l low extrem Sep-2 3 Aaron MANUEL FACS RVT RPGELA Streeter. [address] [facility] [address], [place], [address], . tel:[phone] Referring Provider: Suzi Augustin, [address], [address]. tel:[phone] Office/Outpt E&M Established [address] [facility], [address] [place] [address] Dr Manley [address], [id number], tel:[phone] [facility] Body mass index (BMI) 50-59.9 , adultChronic venous htn w oth comp of bilateral low extrmChronic venous htn w ulcer and inflam of bilateral low extrm Sep-2 3 Aaron MANUEL FACS RVT LEAH Streeter. [address] [facility] [address], [place], [address], [place]. tel:[phone] Referring Provider: Suzi Augustin, [address], [address]. tel:[phone] Family History Family Member Type Diagnosis Age At Onset No Information Payers Payer name Insurance type Covered constitution party ID Tripp ledesma([employer] [facility] [id number] Social History Type Description Quantity Date Captured [...]
--- OUTSIDE RECORDS SUMMARY | 2024-08-26 15:45 | XMS_ITS | Patient Health Record ---
[facility] Address [address] [place] [address] Care Team Providers Care Maintenance Mechanic Name Role Phone Suzi Santos MD Primary Care Provider Nas Mota Unavailable [phone] Allergies Allergen (clinical drug ingredient) Drug/Non Drug [...] W/U Status Risk Notes Problem Plantar wart (46110722) Plantar wart (B07.0) Active confirmed Problem Atherosclerosis of kasaan arteries of the extremities (396474012080821) Atherosclerosis of kasaan artery of both lower extremities, with unspecified presence of clinical manifestation (I70.203) Active confirmed Vital Signs Height 5ft 2in in 11/08/2023 Weight 255 lbs 11/08/2023 BMI 46.64 kg/m2 11/08/2023 Procedures Procedure Date Ordered Date Performed Result Body Sit e 71918-Tqem Destruction, 1-14 10/05/2023 N/A 42933 - Tenotomy, open flexor 10/05/2023 N/A 88984-RBOLOOI NAIL, 6 OR MORE 11/08/2023 N/A 64228-Ofgz Destruction, 1-11/08/2023 N/A 69147-CUBV SKIN LESIONS, OVER 4 11/08/2023 N/A Encounters Encounter Location Date [facility] [address] [facility]/18/2023 Nas Erica Hammer toe of right foot M20.41 and Xerosis of skin L85.[address] [address] 10/05/2023 Nas Erica Hammer toe of right foot M20.41 ; Plantar wart B07.0 and Left foot pain M79.[address] [address] 11/08/2023 Nas Erica Atherosclerosis of kasaan artery of both lower extremities, with unspecified presence of clinical manifestation I70.203 ; Plantar wart B07.0 ; Tinea unguium B35.1 ; Pain in right toe(s) M79.674 ; Pain in left toe(s) M79.675 ; Left foot pain M79.672 and Hammer toe of right foot M20.41 [facility] [address] [place] [address] 09/11/2023 Nas Maldonado [facility] [address] [address] 11/02/2023 Nas Erica [facility] [address] [address] 02/07/2024 Nashenrietta Maldonado [facility] [address] [address] 05/09/2024 Nas Erica [facility] [address] [address] 05/16/2024 Nas Erica [facility] [address] 07/15/2024 Nas Maldonado Assessments Encounter Date Diagnosis (ICD Code) Assessment Notes Treatment Notes Treatment Clinical Notes Section Notes 09/18/2023 Hammer toe of right foot (ICD-10 - M20.41) Resistant to previous conservative treatment,Lisai on for Surgery (4) 10/05/2023 Plantar wart (ICD-10 - B07.0) 10/05/2023 Hammer toe of right foot (ICD-10 - M20.41) 11/08/2023 Plantar wart (ICD-10 - B07.0) 11/08/2023 Atherosclerosis of kasaan artery of both lower extremities, with unspecified [...] Order Date NAIL, 6 OR MORE 07/17/2023 08868-PSEQEYH NAIL, 6 OR MORE 11/08/2023 53100-Jlge Destruction, -11/08/2023 66145-Opdx Destruction, -07/17/2023 10695-Lhub Destruction, -14 01/24/2022 07232-Czeo Destruction, -10/05/2023 21407-RIBO SKIN LESIONS, OVER 4 01/25/20 22 05398-ABXH SKIN LESIONS, OVER 4 11/08/19 24 26675-KCKR SKIN LESIONS, OVER 4 07/17/19 24 16058-Ppccumboq, Toes 07/17/2023 70985 - Tenotomy, open flexor 10/05/2023 Insurance Providers Payer Name Payer Address Payer Phone Subscriber Number Group Number Insured Name Patient Relationship to Insured Coverage Start Date Coverage End Date [facility] [address] [place] [address] [phone] [id number] Mabel Urena Self - patient is the insured Medical (General) History Medical History History ICD Code Chicken pox Depression Measles Mumps Poor circulation - vein Thyroid disorder Restless leg Arthritis Surgical History Surgery Date(Month/Year) hysterectomy 2010 gall bladder 2007 hammer toe 05/24/2017 vein surgery, leg 04/2023 Hospitalization History Reason Date(Month/Year) [facility] 05/24/17
--- OUTSIDE RECORDS SUMMARY | 2024-08-26 15:45 | XMS_ITS ---
Author Organization [facility] Address [address] [place] [address] Care Team Providers Care Forging Operator Name Role Phone Suzi Santos MD Primary Care Provider Nas Mota Unavailable [phone] REASON FOR VISIT Reschedule Encounters Encounter Location Date Provider Diagnosis [facility] [address] [place] [address] 07/15/2024 Nas Maldonado Plan Of Treatment No Information Progress Notes * Mabel CHAPA LDOB: 2 (64 yo F)Acc No.[id number]:07/15/2024 Patient:?SAMMIMabel :1960???Age:64 Y???Sex:Female Address:[address] [place] [address], [address] * true * Date:? Generated for Printi ng/Faraymondg/eTransmitting on:?08/26/2024 03:45 PM EDT
--- NOTE | 2024-08-26 15:49 | A.OFFPC_ITS ---
Vital Signs 08/26/24 15:54 08/26/24 16:01 Height 5 ft 2 in Weight 286 lb BMI 52.3 BP 145/76 H 142/74 H Blood Pressure Location Lt brachial Rt brachial Position Sitting Sitting Pulse 65 Pulse Source Pulse Oximeter Pulse Oximetry (%) 96 Oxygen Delivery Method Room Air Intake Visit Reasons: f/u Intake Note: Follow up Business Banking Officer Required: No Allergies bupropion Allergy (Unknown, Verified 08/26/24 15:49) Blister latex Allergy (Unknown, Verified 08/26/24 15:49) Rash silicone Allergy (Unknown, Verified 08/26/24 15:49) Rash tramadol Allergy (Unknown, Verified 08/26/24 15:49) feels unwell adhesive bandaid Allergy (Unknown, Uncoded 08/26/24 15:49) Rash Tobacco use date assessed: 08/26/24 Dental Screening Dental Screen Date: 08/26/24 Did you have a dental visit in the last 12 months?: No Did you have a dental problem in the last 6 months where you did not have access to dental care?: Yes Was dental information given to patient?: Patient has dentist (has a broken tooth) HPI HPI Comments History of Present Illness Details 64 year old female with a past medical h istory of depression, anxiety, GERD, LE edema, PVD, low back pain, sciatica presenting for follow up CV: stable on current medications. continues GLP to aid weight loss Chronic pain: Low back, sciatica, chronic wounds. stable on meds-morphine ER, oxycodone. Morphine was increased from 30 BID to 20x2 BID but is having trouble getting the latter so essentially reverted back to previous dosing Hospitalized 05/2022 with LE cellulitis. Compression fractures noted at L4-L5. Mulitilevel DDD Leg ulcer-left leg chronic. Follows with [facility]. Follows with vascular and Dr Ocasio and the wound center. stable lower extremity swelling-back on lasix. RLS on pramiprexole. Wound care and nursing have recommended admittance to short term rehab so she could stay off her feet and improve wound healing Thyroid nodules: u/s stable BH: stable on duloxetine, lyrica. Mom is living in [place] alone. Oldest of five sibling, four of whom don't speak with her. Sees a therapist. [facility] is following. Getting more support from her . Mammo 12/2022 Anemia on labs. She had cologuard 2022 -neg. She has an appointment with gastroenterology scheduled for December. She has been fairly fatigued. Denies shortness of breath ROS see HPI PHYSICAL EXAM: GENERAL: Alert and oriented x 3. NAD EYES: EOMI. Anicteric. HENT: Moist mucous membranes. No scleral icterus. No cervical lymphadenopathy. LUNGS: Clear to auscultation bilaterally. CARDIOVASCULAR: Regular rate and rhythm. No murmur. No JVD. ABDOMEN: Soft, non-tender +bs EXTREMITIES: bialteral edema. Non-tender. SKIN: Warm. LLE wound is wrapped NEUROLOGIC: No focal neurological deficits. CN II-XII grossly intact PSYCHIATRIC: Cooperative. Appropriate mood and affect [facility] Medical History (Updated 08/28/24 @ 14:22 by Suzi Narayan MD) Depression Tubular adenoma of colon Severe obesity Restless legs Osteoarthritis Obesity Multiple thyroid nodules Hyponatremia Hypochloremia H/O gastroesophageal reflux (GERD) Elevated troponin COVID-19 Anemia Surgical History (Updated 08/20/24 @ 17:02 by RANDI Mcgovern) Hx of laparoscopic gastric banding H/O gastric bypass H/O tubal ligation H/O: hysterectomy Family History Mother Heart disease Osteoporosis Father Prostate cancer Social History Housing: House Alcohol intake: current Patient Tobacco Use Status: Never used Tobacco e-Cigarette/Vaping Use: Never Used service: No Current occupational status: disabled Cognitive needs: No Hearing needs: No Vision needs: Yes (glasses) Questionnaire Thrive Questionnaire Date Thrive assessed: 04/30/24 I am a: Patient What is your living situation today?: I have a steady place to live Within the past 12 months, did the food you bought not last and you didn't have the money to get more?: Never true Within the past 12 months, did you worry whether your food would run out before you got money to buy more?: Never true Do you have trouble paying for medicines?: No Do you have trouble getting transportation to medical appointments?: No Do you have trouble paying your heating and electricity bill?: No Do you have trouble taking care of your child, family member or friend?: No Do you have trouble with day-to-day activities such as bathing, preparing meals, shopping, managing finances, etc.?: No Are you currently unemployed and looking for a job?: No Are you interested in more education?: No Please select the resources that you would like help with: None Currently or been in a relationship where the following occur: No concerns reported THRIVE Score: 0 ALEX-7 AMB Questionnaire ALEX-7 Date ALEX - 7 assessed: 04/30/24 Source: Developed by Drs. Stoney Madrid, Niya Crowley, Leonard Carrington and colleagues, with an educational urvashi from [employer]. Physical exam (Primary Care) Vital Signs: Last Vital Signs Pulse 65 08/26/24 15:54 BP 142/74 H 08/26/24 16:01 Pulse Ox 96 08/26/24 15:54 Oxygen Delivery Method Room Air 08/26/24 15:54 BMI result Body Mass Index 52.3 Tobacco/Smoking Status: Tobacco use Status Tobacco use date assessed 08/26/24 08/26/24 15:59 Patient Tobacco Use Status Never used Tobacco 08/26/24 15:50 e-Cigarette/Vaping Use Never Used 08/26/24 15:50 Thrive Assessment: Date of Thrive Assessment Date Thrive assessed 04/30/24 08/26/24 15:50 Currently or been in a relationship where the following occur: No concerns reported Coding Level of Care Code Est Pt Level 4 (88522) Diagnoses History of cellulitis Z87.2 Depression with anxiety F41.8 Primary hypertension I10 Hypertension type: primary hypertension Assessment & Plan Assessment & Plan (1) History of cellulitis: Comment: Secondary to PVD treated at [facility] Code(s): Z87.2 - Personal history of diseases of the skin and subcutaneous tissue Category: Medical (2) Depression with anxiety: Code(s): F41.8 - Other specified anxiety disorders Category: Medical (3) Hypertension: Code(s): I10 - Essential (primary) hypertension Category: Medical Qualifiers: Hypertension type: primary hypertension Qualified Code(s): I10 - Essential (primary) hypertension Plan Chronic pain is stable on current medications. 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 Gastro appt is scheduled.Recheck labs Patient would benefit from short term rehab for difficult healing wounds Increase wegovy Orders: Orders IRON PROFILE 08/26/24 D64.9 - Anemia, unspecified, R53.83 - Other fatigue Pathologist Review - CBC 08/26/24 D64.9 - Anemia, unspecified, R53.83 - Other fatigue Vitamin B12 and Folate 08/26/24 D64.9 - Anemia, unspecified, R53.83 - Other fatigue Complete Blood Count Auto Diff 08/26/24 D64.9 - Anemia, unspecified, R53.83 - Other fatigue Referrals Nurse Navigator Referral I73.9 - Peripheral vascular disease, unspecified, Z87.2 - Personal history of diseases of the skin and subcutaneous tissue Medications: New Wegovy (semaglutide (weight loss)) 2.4 mg (0.75 mL) subcut QWEEK 3 mL 3RF NS Refilled oxycodone 5 mg PO Q8H PRN 56 tabs 0RF pain 28 days morphine ER 30 mg PO BID 60 tabs 0RF 30 days
[2024-08-26 15:54] VITALS: BP 145/76; PULSE 65; O2SAT 96; BMI 52.3
[2024-08-26 16:01] VITALS: BP 142/74
== END 2024-08-26 16:22 | disposition home or self-care (01) ==
LOC: HO.HMCFM 15:42
PROVIDERS: PCP Internal Medicine; Visit Provider Internal Medicine
DX: Z87.2 Personal history of diseases of the skin and subcutaneous tissue (principal); F41.8 Other specified anxiety disorders; I10 Essential (primary) hypertension

== ENCOUNTER 2024-10-02 09:58 | Outpatient (REF) | payer OTHER, SELFPAY ==
--- NOTE | 2024-10-02 10:00 | EMG_ITS ---
Chief complaint: Left hand numbness, denies neck pain Reason for referral: Evaluate for Carpal Tunnel Syndrome Referred by: Dr. Hutton Procedure done: Left upper extremity NCS/EMG Precautions and/or limitations: None The limb temperature was monitored continuously and remained between 32-36 degrees C during the performance of the NCS. Ulnar motor NCS was performed with moderate elbow flexion between 70-90 degrees, with across-elbow distance of 10 cm. Nerve Conduction Studies Anti Sensory Summary Table ?Stim Site NR Onset (ms) Norm Onset (ms) Peak (ms) Norm Peak (ms) O-P Amp (?V) Norm O-P Amp Site1 Site2 Delta-0 (ms) Dist (cm) Dewey (m/s) Norm Dewey (m/s) Left Median Anti Sensory (2nd Digit) Wrist NR <3.6 >10 Wrist 2nd Digit 14.0 Left Radial Anti Sensory (Thumb) Forearm ? 1.5 2.0 <3.1 42.2 Forearm Thumb 1.5 0.0 Left Ulnar Anti Sensory (5th Digit) Wrist ? 3.2 4.2 <3.7 16.3 >15.0 Wrist 5th Digit 3.2 14.0 44 Motor Summary Table ?Stim Site NR Onset (ms) Norm Onset (ms) O-P Amp (mV) Norm O-P Amp iAmp (mV) Amp (1st) (%) Site1 Site2 Delta-0 (ms) Dist (cm) Dewey (m/s) Norm Dewey (m/s) Left Median Motor (Abd Poll Brev) Wrist ? 6.9 <3.9 3.0 >4.5 3.7 100.0 Elbow Wrist 3.8 19.0 50 >45 Elbow ? 10.7 2.9 3.5 96.7 Left Ulnar Motor (Abd Dig Minimi) Wrist ? 3.9 <3.0 4.3 >5 5.2 100.0 B Elbow Wrist 3.1 16.5 53 >45 B Elbow ? 7.0 4.0 4.9 93.0 A Elbow B Elbow 2.3 10.0 43 >45 A Elbow ? 9.3 3.9 4.8 90.7 EMG ?Side Muscle Nerve Root Ins Act Fibs Psw Amp Dur Poly Recrt Int Pat Comment Left 1stDorInt Ulnar C8-T1 Nml Nml Nml Nml Nml 0 Nml Complete Left Biceps Musculocut C5-6 Nml Nml Nml Nml Nml 0 Nml Complete Left Triceps Radial C6-7-8 Nml Nml Nml Nml Nml 0 Nml Complete Left Deltoid Axillary C5-6 Nml Nml Nml Nml Nml 0 Nml Complete Left FlexCarpiUln Ulnar C8,T1 Nml Nml Nml Nml Nml 0 Nml Complete FINDINGS: Left median motor nerve showed prolonged distal latency, small amplitude and normal conduction velocity. Left ulnar motor nerve showed prolonged distal latency, small amplitude and slow conduction velocity across the elbow. Left median sensory nerve showed absent response. Left ulnar sensory nerve showed prolonged peak latency. All other nerves tested were within normal. Concentric needle EMG was performed in selected muscles of the left upper extremity. Study did not reveal signs of electric abnormalities as shown in the table above. IMPRESSION: 1. This is an abnormal study. 2. There is electrodiagnostic evidence for left moderate-severe median neuropathy at the wrist, consistent with carpal tunnel syndrome. 3. There is electrodiagnostic evidence for left ulnar neuropathy at the elbow. 4. There is no electrodiagnostic evidence for brachial plexopathy or cervical radiculopathy. Thank you for your kind referral. Ivette Mora MD, LARA Board Certified, [place] Board [employer] and Rehabilitation (ABPMR) Board Certified, [place] Board of Electrodiagnostic Medicine (ABEM) [place] [id number] [facility]
--- OUTSIDE RECORDS SUMMARY | 2024-10-02 11:25 | XMS_ITS | Patient Health Record ---
Author Organization [facility] Address [address] [address] Care Team Providers Care Entry Driver Operator Name Role Phone Yvonne MANUEL, Suzi Primary Care Provider Unavailab Marissa Lagos Unavailable [phone] Angelo Ralph MD Unavailable Unavailable Zka Manley Unavailable [phone] Ariela Victoria Unavailable [phone] Allergies Allergen (clinical drug ingredient) Drug/Non Drug Allergy documented on EMR Reaction Allergy Type Onset Date Status bupropion buPROPion HCl Unknown Drug Allergy Act andrew Wellbutrin Unknown Drug Allergy Active Adhesive Unknown Allergy Active Latex Latex Unknown Allergy Active meloxicam Meloxicam Unknown Drug Allergy Active Silicone Silicone Unknown Allergy Active tramadol Tramadol Unknown Drug Allergy Active Reason For Referral No Information Medications Medication SIG (Take, Route, Frequency, Duration) Notes Start Date End Date Status Ondansetron 4 MG 1 tablet on the tong ue and allow to dissolve Orally every 8 hours PRN; Duration: 30 day(s) 01/08/2024 Active Pramipexole Dihydrochloride 0.5 MG 1 tablet Orally Once a day; Duration: 30 day(s) 12/27/2023 Active oxyCODONE HCl 5 MG 1 tablet as needed Orally every 6 hrs 12/27/2023 Active Morphine Sulfate 30 MG 1 tablet as neede d Orally every 4 hrs 12/27/2023 Active Losartan Potassium 50 MG 1 tablet Orally Once a day; Duration: 30 day(s) 12/27/2023 Active DULoxetine HCl 30 MG 1 capsule Orally On ce a day; Duration: 30 day(s) 12/27/2023 Active Pregabalin 100 MG 1 capsule Orally Twi ce a day Active Diflunisal - as directed 12/27/2023 Unkn own Wegovy 1.7 MG/0.75ML 0.75 mL Subcutaneous Active Acetaminophen 325 MG 1 tablet as needed Orally every 6 hrs Unknown Levothyroxine Sodium 150 MCG 1 tablet in the morning on an empty stomach Orally Once a day; Duration: 30 day(s) 12/27/2023 Unknown 1st Medx-Patch/ Lidocaine 4-0.025-5-20 % as directed Externally 12/27/2023 Sharmila Reynoso Extra Strength 520-260-32.5 MG 1 packet as needed Orally every 6 hrs 01/08/2024 Active Problems Problem Type SNOMED Code ICD Code Onset Dates Problem Status W/U Status Risk Notes Problem Morbid obesity (disorder) (076839931) Morbid (severe) obesity due to excess calories (E66.01) Active confirmed Problem Restless legs syndrome (93138220) Restless legs syndrome (G25.81) Active confirmed Problem Peripheral vascular disease (302587425) Peripheral vascular disease, unspecified (I73.9) Active confirmed Problem Stasis dermatitis co-occurrent with venous ulcer of left lower extremity due to chronic peripheral venous hypertension (disorder) (076113688934561) Chronic venous hypertension (idiopathic) with ulcer and inflammation of left lower extremity (I87.332) Active confirmed Problem Lymphedema (773668747) Lymphedema, not elsewhere classified (I89.0) Active confirmed Problem Gastro-esophageal reflux disease without esophagitis (556484660) Gastro-esophagea l reflux disease without esophagitis (K21.9) Active confirmed Problem Chronic ulcer of skin of lower leg (disorder) (52417796031914608 ) Non-pressure chronic ulcer of other part of left lower leg limited to breakdown of skin (L97.821) Active confirmed Problem Localized, primary osteoarthritis of the ankle and/or foot (704071631) Primary osteoarthritis, unspecified ankle and foot (M19.079) Active confirmed Problem 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 (L97.825) Active confirmed Problem Peripheral vascular disease (723308437) Peripheral vascular disease (I73.9) Active confirmed Problem Morbid obesity (799403710) Morbid obesity (E66.01) Active confirmed Problem Lymphedema (59878128) Lymphedema (I89.0) Active confirmed Problem Deep tissue pressure injury of right heel (disorder) (99716751509202214 6) Pressure injury of deep tissue of right heel (L89.616) Active confirmed Problem Cellulitis of left lower leg (64319302479351) Cellulitis of left lower leg (L03.116) Active confirmed Vital Signs Heart Rate 85 /min 09/30/2024 Temperature 97.9 degrees Fahrenheit 09/30/2024 Respiratory Rate 18 /min 09/30/2024 Oximetry 95 % 09/30/2024 Blood pressure diastolic 70 mm Hg 09/30/2024 Weight-kg 122.02 kg 09/30/2024 Height 62 in 09/30/2024 Blood pressure systolic 110 mm Hg 09/30/2024 Weight 269 lbs 09/30/2024 BMI 49.2 kg/m2 09/30/2024 Encounters Encounter Location Date Provider Diagnosis [facility] [address] [address] 01/01/2024 Zak Manley Lymphedema I89.0 ; Morbid obesity E66.01 ; Peripheral vascular disease I73.9 ; 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 L97.825 and Chronic venous hypertension (idiopathic) with ulcer and inflammation of left lower extremity I87.332 [place] [address] [address] 01/08/2024 Marissa Hang Chronic venous hypertension (idiopathic) with ulcer and inflammation of left lower extremity I87.332 ; Peripheral vascular disease, unspecified I73.9 ; Morbid (severe) obesity due to excess calories E66.01 ; 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 L97.825 ; Non-pressure chronic ulcer of other part of left lower leg limited to breakdown of skin L97.821 and Lymphedema, not elsewhere classified I89.[address] [facility] [address] [address] 01/23/2024 Zak Manley Chronic venous hypertension (idiopathic) with ulcer and inflammation of left lower extremity I87.332 ; Peripheral vascular disease, unspecified I73.9 ; Morbid (severe) obesity due to excess calories E66.01 ; 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 L97.825 ; Non-pressure chronic ulcer of other part of left lower leg limited to breakdown of skin L97.821 and Lymphedema, not elsewhere classified I89.0 [facility] [address] [address] 01/29/2024 Marissa Mauricio Chronic venous hypertension (idiopathic) with ulcer and inflammation of left lower extremity I87.332 ; Peripheral vascular disease, unspecified I73.9 ; Morbid (severe) obesity due to excess calories E66.01 ; 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 L97.825 ; Non-pressure chronic ulcer of other part of left lower leg limited to breakdown of skin L97.821 ; Lymphedema, not elsewhere classified I89.0 and Dermatitis L30.9 [place] [address] [address] 02/05/2024 Marissa Mauricio Chronic venous hypertension (idiopathic) with ulcer and inflammation of left lower extremity I87.332 ; Peripheral vascular disease, unspecified I73.9 ; Morbid (severe) obesity due to excess calories E66.01 ; 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 L97.825 ; Non-pressure chronic ulcer of other part of left lower leg limited to breakdown of skin L97.821 ; Lymphedema, not elsewhere classified I89.0 and Dermatitis L30.9 [facility] [address] [address] 02/12/2024 Marissa Mauricio Chronic venous hypertension (idiopathic) with ulcer and inflammation of left lower extremity I87.332 ; Peripheral vascular disease, unspecified I73.9 ; Morbid (severe) obesity due to excess calories E66.01 ; 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 L97.825 ; Non-pressure chronic ulcer of other part of left lower leg limited to breakdown of skin L97.821 ; Lymphedema, not elsewhere classified I89.0 and Dermatitis L30.9 [facility] [address] 02/19/2024 Marissa Mauricio Chronic venous hypertension (idiopathic) with ulcer and inflammation of left lower extremity I87.332 ; Peripheral vascular disease, unspecified I73.9 ; Morbid (severe) obesity due to excess calories E66.01 ; 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 L97.825 ; Non-pressure chronic ulcer of other part of left lower leg limited to breakdown of skin L97.821 ; Lymphedema, not elsewhere classified I89.0 and Dermatitis L30.9 [facility] [address] 02/26/2024 Marissa Mauricio Chronic venous hypertension (idiopathic) with ulcer and inflammation of left lower extremity I87.332 ; Peripheral vascular disease, unspecified I73.9 ; Morbid (severe) obesity due to excess calories E66.01 ; 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 L97.825 ; Non-pressure chronic ulcer of other part of left lower leg limited to breakdown of skin L97.821 ; Lymphedema, not elsewhere classified I89.0 and Dermatitis L30.[address] [facility] [address] [address] 03/04/2024 Marissa Mauricio Chronic venous hypertension (idiopathic) with ulcer and inflammation of left lower extremity I87.332 ; Peripheral vascular disease, unspecified I73.9 ; Morbid (severe) obesity due to excess calories E66.01 ; 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 L97.825 ; Non-pressure chronic ulcer of other part of left lower leg limited to breakdown of skin L97.821 ; Lymphedema, not elsewhere classified I89.0 and Dermatitis L30.9 [facility] [address] [address] 03/11/2024 Marissa Mauricio Chronic venous hypertension (idiopathic) with ulcer and inflammation of left lower extremity I87.332 ; Peripheral vascular disease, unspecified I73.9 ; Morbid (severe) obesity due to excess calories E66.01 ; 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 L97.825 ; Non-pressure chronic ulcer of other part of left lower leg limited to breakdown of skin L97.821 ; Lymphedema, not elsewhere classified I89.0 and Dermatitis L30.9 [place] [address] 03/18/2024 Marissa Mauricio Chronic venous hypertension (idiopathic) with ulcer and inflammation of left lower extremity I87.332 ; Peripheral vascular disease, unspecified I73.9 ; Morbid (severe) obesity due to excess calories E66.01 ; 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 L97.825 ; Non-pressure chronic ulcer of other part of left lower leg limited to breakdown of skin L97.821 ; Lymphedema, not elsewhere classified I89.0 and Dermatitis L30.[address] 03/26/2024 Anzhela Savonina Lymphedema I89.0 ; Chronic venous hypertension (idiopathic) with ulcer and inflammation of left lower extremity I87.332 ; Morbid obesity E66.01 ; Peripheral vascular disease I73.9 and 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 L97.825 [place] [address] 04/01/2024 Marissa Mauricio Lymphedema I89.0 ; Chronic venous hypertension (idiopathic) with ulcer and inflammation of left lower extremity I87.332 ; Morbid obesity E66.01 ; Peripheral vascular disease I73.9 and 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 L97.825 [place] [address] 04/08/2024 Jooyun Victoria Lymphedema I89.0 ; Chronic venous hypertension (idiopathic) with ulcer and inflammation of left lower extremity I87.332 ; Morbid obesity E66.01 ; Peripheral vascular disease I73.9 and 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 L97.[address] [facility] [address] 04/15/2024 Marissa Mcginnisett Lymphedema I89.0 ; Chronic venous hypertension (idiopathic) with ulcer and inflammation of left lower extremity I87.332 ; Morbid obesity E66.01 ; Peripheral vascular disease I73.9 and 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 L97.[address] [facility] [address] [address] 04/22/2024 Marissaerasto Mcginnisett Lymphedema I89.0 ; Chronic venous hypertension (idiopathic) with ulcer and inflammation of left lower extremity I87.332 ; Morbid obesity E66.01 ; Peripheral vascular disease I73.9 and 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 L97.[address] [facility] [address] 05/06/2024 Marissaerasto Mauricio Lymphedema I89.0 ; Chronic venous hypertension (idiopathic) with ulcer and inflammation of left lower extremity I87.332 ; Morbid obesity E66.01 ; Peripheral vascular disease I73.9 and 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 L97.[address] [facility] [address] 05/13/2024 Marissa [place] Lymphedema I89.0 ; Chronic venous hypertension (idiopathic) with ulcer and inflammation of left lower extremity I87.332 ; Morbid obesity E66.01 ; Peripheral vascular disease I73.9 and 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 L97.825 [facility] [address] 05/20/2024 Marissaerasto [place] Lymphedema I89.0 ; Chronic venous hypertension (idiopathic) with ulcer and inflammation of left lower extremity I87.332 ; Morbid obesity E66.01 ; Peripheral vascular disease I73.9 and 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 L97.825 [facility] [address] [address] 05/27/2024 Marissa [place] Lymphedema I89.0 ; Chronic venous hypertension (idiopathic) with ulcer and inflammation of left lower extremity I87.332 ; Morbid obesity E66.01 ; Peripheral vascular disease I73.9 and 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 L97.[address] [facility] [address] [address] 06/10/2024 Marissa Mauricio Lymphedema I89.0 ; Chronic venous hypertension (idiopathic) with ulcer and inflammation of left lower extremity I87.332 ; Morbid obesity E66.01 ; Peripheral vascular disease I73.9 and 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 L97.[address] [facility] [address] 06/17/2024 Marissa Mauricio Lymphedema I89.0 ; Chronic venous hypertension (idiopathic) with ulcer and inflammation of left lower extremity I87.332 ; Morbid obesity E66.01 ; Peripheral vascular disease I73.9 and 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 L97.[address] [facility] [address] [address] 06/24/2024 Marissa Mauricio Lymphedema I89.0 ; Chronic venous hypertension (idiopathic) with ulcer and inflammation of left lower extremity I87.332 ; Morbid obesity E66.01 ; Peripheral vascular disease I73.9 ; 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 L97.825 and Cellulitis of left lower leg L03.[address] [facility] [address] [address] 07/01/2024 Marissa Mauricio Lymphedema I89.0 ; Chronic venous hypertension (idiopathic) with ulcer and inflammation of left lower extremity I87.332 ; Morbid obesity E66.01 ; Peripheral vascular disease I73.9 ; 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 L97.825 and Cellulitis of left lower leg L03.[address] [facility] [address] [address] 07/10/2024 Marissaerasto Mauricio Lymphedema I89.0 ; Chronic venous hypertension (idiopathic) with ulcer and inflammation of left lower extremity I87.332 ; Morbid obesity E66.01 ; Peripheral vascular disease I73.9 ; 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 L97.825 and Cellulitis of left lower leg L03.[address] [facility] [address] [address] 07/17/2024 Marissa Mauricio Lymphedema I89.0 ; Chronic venous hypertension (idiopathic) with ulcer and inflammation of left lower extremity I87.332 ; Morbid obesity E66.01 ; Peripheral vascular disease I73.9 ; 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 L97.825 and Cellulitis of left lower leg L03.[address] [facility] [address] [address] 07/25/2024 Casperbere Vineet 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 L97.825 ; Chronic venous hypertension (idiopathic) with ulcer and inflammation of left lower extremity I87.332 ; Pruritic dermatitis L30.8 ; Lymphedema I89.0 ; Morbid obesity E66.01 and Peripheral vascular disease I73.[address] [facility] [address] [address] 07/31/2024 Marissa Mauricio 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 L97.825 ; Chronic venous hypertension (idiopathic) with ulcer and inflammation of left lower extremity I87.332 ; Pruritic dermatitis L30.8 ; Lymphedema I89.0 ; Morbid obesity E66.01 and Peripheral vascular disease I73.[address] [facility] [address] [address] 08/05/2024 Marissa Mauricio 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 L97.825 ; Chronic venous hypertension (idiopathic) with ulcer and inflammation of left lower extremity I87.332 ; Pruritic dermatitis L30.8 ; Lymphedema I89.0 ; Morbid obesity E66.01 and Peripheral vascular disease I73.[address] [facility] [address] [facility] [address] [address] 08/13/2024 Marissa Mauricio 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 L97.825 ; Chronic venous hypertension (idiopathic) with ulcer and inflammation of left lower extremity I87.332 ; Pruritic dermatitis L30.8 ; Lymphedema I89.0 ; Morbid obesity E66.01 ; Peripheral vascular disease I73.9 and Cellulitis of left lower leg L03.116 [facility] [address] [address] 08/21/2024 Marissa Mauricio 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 L97.825 ; Chronic venous hypertension (idiopathic) with ulcer and inflammation of left lower extremity I87.332 ; Pruritic dermatitis L30.8 ; Lymphedema I89.0 ; Morbid obesity E66.01 ; Peripheral vascular disease I73.9 ; Cellulitis of left lower leg L03.116 and Pressure injury of deep tissue of right heel L89.[address] [facility] [address] [address] 08/26/2024 Marissa Mauricio 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 L97.825 ; Chronic venous hypertension (idiopathic) with ulcer and inflammation of left lower extremity I87.332 ; Lymphedema I89.0 ; Morbid obesity E66.01 ; Peripheral vascular disease I73.9 and Pressure injury of deep tissue of right heel L89.[address] [facility] [address] [address] 09/04/2024 Marissa Mauricio 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 L97.825 ; Chronic venous hypertension (idiopathic) with ulcer and inflammation of left lower extremity I87.332 ; Lymphedema I89.0 ; Morbid obesity E66.01 ; Peripheral vascular disease I73.9 and Pressure injury of deep tissue of right heel L89.[address] [facility] [address] [facility] [address] [address] 09/11/2024 Marissa Mauricio 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 L97.825 ; Chronic venous hypertension (idiopathic) with ulcer and inflammation of left lower extremity I87.332 ; Lymphedema I89.0 ; Morbid obesity E66.01 ; Peripheral vascular disease I73.9 and Pressure injury of deep tissue of right heel L89.616 [facility] [address] [place] [address] 09/18/2024 Marissa Mauricio 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 L97.825 ; Chronic venous hypertension (idiopathic) with ulcer and inflammation of left lower extremity I87.332 ; Lymphedema I89.0 ; Morbid obesity E66.01 ; Peripheral vascular disease I73.9 and Pressure injury of deep tissue of right heel L89.616 [facility] [address] [place] [address] 09/30/2024 Marissa Mauricio 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 L97.825 ; Chronic venous hypertension (idiopathic) with ulcer and inflammation of left lower extremity I87.332 ; Lymphedema I89.0 ; Morbid obesity E66.01 ; Peripheral vascular disease I73.9 and Pressure injury of deep tissue of right heel L89.616 [facility] [address] [place] [address] 12/27/2023 Marissa [facility] [address] [place] [address] 01/29/2024 Marissa [facility] [address] [place] [address] 02/13/2024 Marissa [facility] [address] [place] [address] 02/29/2024 Marissa [facility] [address] [place] [address] 03/21/2024 Marissa [facility] [address] [place] [address] 04/02/2024 [facility] [address] [address] 06/24/2024 [facility] [address] [address] 06/27/2024 [facility] [address] [place] [address] 06/27/2024 [facility] [address] [place] [address] 07/01/2024 [facility] [address] [address] 07/10/2024 [facility] [address] [place] [address] 08/05/2024 Marissaerasto Mauricio Assessments Encounter Date Diagnosis (ICD Code) Assessment Notes Treatment Notes Treatment Clinical Notes Section Notes 01/01/2024 Morbid obesity (ICD-10 - E66.01) 01/01/2024 Lymphedema (ICD-10 - I89.0) 01/08/2024 Peripheral vascular disease, unspecified (ICD-10 - I73.9) 01/08/2024 Chronic venous hypertension (idiopathic) with ulcer and inflammation of left lower extremity (ICD-10 - I87.332) On exam, afebrile. The dressing was removed and wound examined. Her lateral LLE wound is measuring larger today because she has a new area superior to her posterior ankle, superficial with granular tissue. I performed debridement to remove and break up devitalized tissue to her wound on LLE as detailed and she tolerated the procedure well after an application of lidocaine. There were no findings to indicate any acute underlying infectious process I cleaned the wound with wound cleanser and then dakins solution. Nursing then applied house moisturizer to her legs, SP to RLE and SP and zinc to periwounds and intact epithelial islands on LLE, aquacel ag f.b DCD. Tubi and sav wrap were reapplied to her LLE. VNA will perform dressing changes Monday and Monday first cleaning with dakins solution, then apply house moisturizer to her intact legs, SP and zinc to periwounds and intact epithelial islands, aquacel ag f/b DCD. Tubi and sav to LLE and juxtalite to RLE. She was denied for dermacyte. Elevation and compression recommended at length. She will return in one week for a follow up appointment and will call in the interim w any questions or concerns. Patient and nursing agree w plan of care. Marissa Reeves MSN, [facility]- examined, evaluated and treated the patient. Dr. Modesta Bal was available for any question or concerns that I may have had. 01/23/2024 Chronic venous hypertension (idiopathic) with ulcer and inflammation of left lower extremity (ICD-10 - I87.332) Tacos presents today for a follow up for CVU. On exam, vital signs stable, afebrile, non-ill appearing. I removed the dressing and examined the wound located on the left lower leg. Wound is stable, skin islands noted within the wound bed, slough and devitalized tissue present. There are no surrounding signs of skin infection. I discussed the indication for debridement and she was agreeable to procedure. I performed debridement of the ulcer as outlined above. Ulcer was cleaned with Dakins, rinsed with saline and Aquacel ag was applied to the wound bed, zinc to periwound secured with dsd. Tubigrip with sav wrap was applied to the left leg. She tolerated the procedure well. Tacos's wound is stable with no signs of infection today. VNA will continue to assist with dressing changes, continue with Dakins wash, rinse with saline and apply Aquacel ag to the wound, zinc to periwound secure with dsd. Continue with Tubigrip and sav wrap for compression and elevate legs. She will address the dizziness and vomiting with her pcp this week. She is stable on discharge. She will return in 1 week for a follow up visit. Leandro WILD-Jaimee, examined, evaluated and treated the patient. Dr. Modesta Bal was available for any question or concerns that I may have had. 01/29/2024 Peripheral vascular disease, unspecified (ICD-10 - I73.9) 01/29/2024 Chronic venous hypertension (idiopathic) with ulcer and inflammation of left lower extremity (ICD-10 - I87.332) On exam, afebrile. The dressing was removed and wound examined. Her lateral LLE wound is improved but she still reports itching to the distal aspect. I performed debridement to remove and break up devitalized tissue to her wound on LLE as detailed and she tolerated the procedure well after an application of lidocaine. There were no findings to indicate any acute underlying infectious process I cleaned the wound with wound cleanser and then dakins solution. Nursing then applied triamcinolone to the distal pruritic aspect of the wound, zinc to periwound and intact epithelial islands on LLE, aquacel ag f.b DCD. Tubi and sav wrap were reapplied to her LLE. VNA will perform dressing changes Monday and Monday first cleaning with dakins solution, then apply triamcinolone to periwound, zinc to periwound and intact epithelial islands, aquacel ag f/b DCD. I wrote her for an rx of triamcinolone which she will have VNA apply wednesdays and fridays with dressing changes. Tubi and sav to LLE and juxtalite to RLE. Elevation and compression recommended at length. She will return in one week for a follow up appointment and will call in the interim w any questions or concerns. Patient and nursing agree w plan of care. I, Marissa Mauricio MSN, [facility]- examined, evaluated and treated the patient. Dr. Modesta Bal was available for any question or concerns that I may have had. 02/05/2024 Chronic venous hypertension (idiopathic) with ulcer and inflammation of left lower extremity (ICD-10 - I87.332) On exam, afebrile. The dressing was removed and wound examined. Her lateral LLE wound is unchanged in size today but has mixed epithelial and granular tissue. I performed debridement to remove and break up devitalized tissue to her wound on LLE as detailed and she tolerated the procedure well after an application of lidocaine. The slough was easily removed and breaking up nicely with debridement today. There were no findings to indicate any acute underlying infectious process. I cleaned the wound with wound cleanser and then dakins solution. Nursing then applied triamcinolone to the distal pruritic aspect of the wound, zinc to periwound and intact epithelial islands on LLE, aquacel ag f.b DCD. Tubi and sav wrap were reapplied to her LLE. VNA will perform dressing changes Monday and Monday first cleaning with dakins solution, then apply triamcinolone to periwound, zinc to periwound and intact epithelial islands, aquacel ag f/b DCD. I wrote her for an rx of triamcinolone which she will have VNA apply wednesdays and fridays with dressing changes. Tubi and sav to LLE and juxtalite to RLE. Elevation and compression recommended at length. She will return in one week for a follow up appointment and will call in the interim w any questions or concerns. Patient and nursing agree w plan of care. Marissa Reeves MSN, [facility] examined, evaluated and treated the patient. Dr. Modesta Bal was available for any question or concerns that I may have had. 02/12/2024 Chronic venous hypertension (idiopathic) with ulcer and inflammation of left lower extremity (ICD-10 - I87.332) On exam, afebrile. The dressing was removed and wound examined. Her lateral LLE wound healing overall appears stagnant today-there is thick slough to a large portion of the wound bed. I performed extensive debridement to remove and break up devitalized tissue to her wound on LLE as detailed and she tolerated the procedure well after an application of lidocaine. There were no findings to indicate any acute underlying infectious process. I cleaned the wound with wound cleanser and then dakins solution. Nursing then applied triamcinolone to the distal pruritic aspect of the wound, zinc to periwound and intact epithelial islands on LLE, Hydrofera blue classic f.b DCD. Tubi and sav wrap were reapplied to her LLE. VNA will perform dressing changes Monday and Monday first cleaning with dakins solution, then apply triamcinolone to periwound, zinc to periwound and intact epithelial islands, HFB classic f/b DCD. Tubi and sav to LLE and juxtalite to RLE. Elevation and compression recommended at length. She will return in one week for a follow up appointment and will call in the interim w any questions or concerns. Patient and nursing agree w plan of care. Marissa Reeves MSN, [facility] examined, evaluated and treated the patient. Dr. Modesta Bal was available for any question or concerns that I may have had. 02/19/2024 Chronic venous hypertension (idiopathic) with ulcer and inflammation of left lower extremity (ICD-10 - I87.332) On exam, afebrile. The dressing was removed and wound examined. Her lateral LLE wound is much grounds cleaner with primarily granular tissue, large ss drainage. I performed debridement to remove and break up devitalized tissue to her wound on LLE as detailed and she tolerated the procedure well after an application of lidocaine. There were no findings to indicate any acute underlying infectious process. I cleaned the wound with wound cleanser and then dakins solution. Nursing then applied triamcinolone to the distal pruritic aspect of the wound, zinc to periwound and intact epithelial islands on LLE, puracol ag, aquacel extra f.b DCD. Tubi and sav wrap were reapplied to her LLE. VNA will perform dressing changes Monday and Monday first cleaning with dakins solution, then apply triamcinolone to periwound, zinc to periwound and intact epithelial islands, puracol ag f.b aquacel extra f/b DCD changing Monday and Monday by VNA and Monday's here in office. Tubi and sav to LLE. Elevation and compression recommended at length. She will return in one week for a follow up appointment and will call in the interim w any questions or concerns. Patient and nursing agree w plan of care. I, Marissa Mauricio MSN, [facility]- examined, evaluated and treated the patient. Dr. Modesta Bal was available for any question or concerns that I may have had. 02/26/2024 Chronic venous hypertension (idiopathic) with ulcer and inflammation of left lower extremity (ICD-10 - I87.332) On exam, afebrile. The dressing was removed and wound examined. Her lateral LLE wound is much grounds cleaner with primarily granular tissue, large ss drainage. The wound is measuring smaller in length but wider in width as there is a new granular area to the posterior aspect, making the mesurement larger. I performed debridement to remove and break up devitalized tissue to her wound on LLE as detailed and she tolerated the procedure well after an application of lidocaine. There were no findings to indicate any acute underlying infectious process. I cleaned the wound with wound cleanser and then dakins solution. Nursing then applied triamcinolone to the distal pruritic aspect of the wound, zinc to periwound and intact epithelial islands on LLE, puracol ag, aquacel extra f.b DCD. Tubi and sav wrap were reapplied to her LLE. VNA will perform dressing changes Monday and Monday first cleaning with dakins solution, then apply triamcinolone to periwound, zinc to periwound and intact epithelial islands, puracol ag f.b aquacel extra f/b DCD changing Monday and Monday by VNA and Monday's here in office. If they are unable to get puracol ag and aquacel extra, may try dermacol as this has collagen and alginate. Tubi and sav to LLE. Elevation and compression recommended at length. She will return in one week for a follow up appointment and will call in the interim w any questions or concerns. Patient and nursing agree w plan of care. I, Marissa Mauricio MSN, [facility]- examined, evaluated and treated the patient. Dr. Modesta Bal was available for any question or concerns that I may have had. 03/04/2024 Chronic venous hypertension (idiopathic) with ulcer and inflammation of left lower extremity (ICD-10 - I87.332) On exam, afebrile. The dressing was removed and wound examined. Her lateral LLE wound is much grounds cleaner with primarily granular tissue, large ss drainage. The wound is improving. I performed debridement to remove and break up devitalized tissue to her wound on LLE as detailed and she tolerated the procedure well after an application of lidocaine. There were no findings to indicate any acute underlying infectious process. I cleaned the wound with wound cleanser and then dakins solution. Nursing then applied triamcinolone to the distal pruritic aspect of the wound, zinc to periwound and intact epithelial islands on LLE, doublt puracol ag, aquacel extra, optilock due to large drainage f.b DCD. Tubi and sav wrap were reapplied to her LLE. VNA will perform dressing changes Monday and Monday first cleaning with dakins solution, then apply triamcinolone to periwound, zinc to periwound and intact epithelial islands, puracol ag f.b aquacel extra f/b DCD changing Monday and Monday by VNA and Monday's here in office. If they are unable to get puracol ag and aquacel extra, may try dermacol as this has collagen and alginate. Tubi and sav to LLE. Elevation and compression recommended at length. She will return in one week for a follow up appointment and will call in the interim w any questions or concerns. Patient and nursing agree w plan of care. Marissa Reeves MSN, [facility], evaluated and treated the patient. Dr. Modesta Bal was available for any question or concerns that I may have had. 03/11/2024 Chronic venous hypertension (idiopathic) with ulcer and inflammation of left lower extremity (ICD-10 - I87.332) On exam, afebrile. The dressing was removed and wound examined. Her lateral LLE wound is much grounds cleaner with primarily granular tissue, large ss drainage. The wound is improving but healing does appear slightly stagnant. I performed debridement to remove and break up devitalized tissue to her wound on LLE as detailed and she tolerated the procedure well after an application of lidocaine. There were no findings to indicate any acute underlying infectious process. I cleaned the wound with wound cleanser and then dakins solution. Nursing then applied triamcinolone to the distal pruritic aspect of the wound, zinc to periwound and intact epithelial islands on LLE, aquacel ag, optilock due to large drainage f.b coflex TLC VNA will perform dressing changes Monday and Monday first cleaning with dakins solution, then apply triamcinolone to periwound, zinc to periwound and intact epithelial islands, aquacel ag f/b coflex TLC changing Monday and Monday by VNA and Monday's here in office. Tubi and sav to LLE. Elevation and compression recommended at length. She will return in one week for a follow up appointment and will call in the interim w any questions or concerns. Patient and nursing agree w plan of care. Marissa Reeves MSN, [facility] examined, evaluated and treated the patient. Dr. Modesta Bal was available for any question or concerns that I may have had. 03/18/2024 Chronic venous hypertension (idiopathic) with ulcer and inflammation of left lower extremity (ICD-10 - I87.332) On exam, afebrile. The dressing was removed and wound examined. Her lateral LLE wound is much grounds cleaner with primarily granular tissue, large ss drainage. The wound is improving and the slough is easily removed from the wound with debridement. I performed debridement to remove and break up devitalized tissue to her wound on LLE as detailed and she tolerated the procedure well after an application of lidocaine. There were no findings to indicate any acute underlying infectious process. I cleaned the wound with wound cleanser and then dakins solution. Nursing then applied triamcinolone to the distal pruritic aspect of the wound, zinc to periwound and intact epithelial islands on LLE, aquacel ag, optilock due to large drainage f.b coflex TLC VNA will perform dressing changes Monday and Monday first cleaning with dakins solution, then apply triamcinolone to periwound, zinc to periwound and intact epithelial islands, aquacel ag f/b coflex TLC changing Monday and Monday by VNA and Monday's here in office. If not available, may use aquacel ag. Tubi and sav to LLE. Elevation and compression recommended at length. She will return in one week for a follow up appointment and will call in the interim w any questions or concerns. Patient and nursing agree w plan of care. I, Marissa Mauricio MSN, [facility]- examined, evaluated and treated the patient. Dr. Modesta Bal was available for any question or concerns that I may have had. 03/26/2024 Chronic venous hypertension (idiopathic) with ulcer and inflammation of left lower extremity (ICD-10 - I87.332) Tacos presents today for a follow up visit for treatment of left lower extremity chronic venous ulcer. On exam, vital signs stable, afebrile, non-ill appearing. I removed the dressing and examined the wound located on the left lateroposterior leg. There is a cluster of wound with epithelialial tissue surrounding the wounds. Wound bed with slough, fibrinous rim, no surrounding erythema, no purulence, no odor. I discussed the indication for debridement and she was agreeable to procedure. I performed debridement of the ulcer as outlined above. Ulcer was cleaned with Dakins, rinsed with saline and Aquacel ag was applied to the wound bed, zinc to periwound secured with dsd. Coflex TLC was applied to left leg. She tolerated the procedure well. Tacos's wound is stable. There are no signs of infectious process. We will continue with current wound treatment. VNA will wash the wound with Dakins, rinse with saline, applying Aquacel ag to the wound bed, zinc to periwound secure with dsd. She will use tubigrip and sav wrap for compression when wrap is not available. Leg elevation is encouraged. She will return in 1 week for a follow up visit. I, Zak Manley [facility], examined, evaluated and treated the patient. Dr. Modesta Bal was available for any question or concerns that I may have had. 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 (ICD-10 - L97.825) 07/31/2024 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 (ICD-10 - L97.825) 08/05/2024 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 (ICD-10 - L97.825) 08/13/2024 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 (ICD-10 - L97.825) 08/21/2024 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 (ICD-10 - L97.825) 08/26/2024 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 (ICD-10 - L97.825) 09/04/2024 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 (ICD-10 - L97.825) 09/11/2024 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 (ICD-10 - L97.825) 09/18/2024 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 (ICD-10 - L97.825) 09/30/2024 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 (ICD-10 - L97.825) 09/30/2024 Chronic venous hypertension (idiopathic) with ulcer and inflammation of left lower extremity (ICD-10 - I87.332) Tacos presents today for a follow up visit for treatment of left lower extremity chronic venous ulcer and R heel wound. On exam, afebrile and cooperative with care. She reports she is working on dietary compliance, weight loss, walking with PT, and elevation of her BLEs. The dressing was removed and wound examined. Her lateral LLE wound is improving nicely; the medial aspect of her LLE area remains resolved and the lateral aspect is narrowing nicely. I performed debridement to remove and break up devitalized tissue to her wound on LLE as detailed, applied silver nitrate to the thickened and rolled edges and she tolerated the procedures well after an application of lidocaine. I applied vashe, let sit and then cleaned off with wound cleanser. Nursing then applied zinc to periwound and intact epithelial islands on LLE, ag alg, optilock due to large drainage f.b abd and kerlix, tubi and sav wrap. Her R heel/plantar foot DTI is nicely resolved with healthy epithelial tissue. We will request VNA perform dressing changes on Monday and Monday, applying zinc to periwound and intact epithelial islands, ag alg, optilock, abd and kerlix, cover with tubi and sav to LLE. Vascular appointment needs to be rescheduled again. Continue elevation and weight loss as able; discussed elevating above the level of her heart which she has been trying to do as she has been using 2 new cushions. Elevation and compression recommended at length and discussed again today including importance of elevating both feet, avoiding pressure to heels and plantar feet. She will return for a follow up visit in about one week and will call in the interim w any questions or concerns. Elevation and protein supplementation, low salt, appropriate dietary compliance with weight loss to aid in wound healing. Patient and nursing agree w plan of care. I, Marissa Mauricio MSN, [facility]- examined, evaluated and treated the patient. Dr. Modesta Bal was available for any question or concerns that I may have had. A total of 35 minutes was spent on this visit (face to face and non face to face) documenting HPI and performing physical exam, reviewing and formulating treatment plan, counseling the patient on treatment choices, disease process, expected outcomes, and documenting the findings in the note. 09/18/2024 Chronic venous hypertension (idiopathic) with ulcer and inflammation of left lower extremity (ICD-10 - I87.332) Tacos presents today for a follow up visit for treatment of left lower extremity chronic venous ulcer and R heel wound. On exam, afebrile and cooperative with care. She reports she spent the weekend with her feet up reports she is working on dietary compliance, weight loss, walking with PT, and elevation of her BLEs. The dressing was removed and wound examined. Her lateral LLE wound is improving nicely; the medial aspect of her LLE area remains resolved and the lateral aspect is narrowing nicely. I performed debridement to remove and break up devitalized tissue to her wound on LLE as detailed and she tolerated the procedure well after an application of lidocaine. I cleaned the wound with wound cleanser as no vashe was available and applied silver nitrate to the thickened and rolled edges. Nursing then applied zinc to periwound and intact epithelial islands on LLE, ag alg, optilock due to large drainage f.b abd and kerlix, tubi and sav wrap. Her R heel/plantar foot DTI is stable and lightening in appearance, still dry and nontender to touch. She reports persistent soreness to her L plantar foot/heel where there is no wound. Skin prep was applied to both plantar feet/heels for protection. We will request VNA perform dressing changes on Monday and Monday, applying zinc to periwound and intact epithelial islands, ag alg, optilock, abd and kerlix, cover with tubi and sav to LLE and skin prep to R heel/plantar foot. Vascular appointment needs to be rescheduled again. Continue elevation and weight loss as able; discussed elevating above the level of her heart which she has been trying to do as she has been using 2 new cushions. Elevation and compression recommended at length and discussed again today including importance of elevating both feet, avoiding pressure to heels and plantar feet. She will return for a follow up visit in about two weeks and will call in the interim w any questions or concerns. Elevation and protein supplementation, low salt, appropriate dietary compliance with weight loss to aid in wound healing. Patient and nursing agree w plan of care. IMarissa MSN, [facility]- examined, evaluated and treated the patient. Dr. Modesta Bal was available for any question or concerns that I may have had. A total of 39 minutes was spent on this visit (face to face and non face to face) documenting HPI and performing physical exam, reviewing and formulating treatment plan, counseling the patient on treatment choices, disease process, expected outcomes, and documenting the findings in the note. 09/04/2024 Chronic venous hypertension (idiopathic) with ulcer and inflammation of left lower extremity (ICD-10 - I87.332) Tacos presents today for a follow up visit for treatment of left lower extremity chronic venous ulcer and R heel wound. On exam, afebrile and cooperative with care. She denies feeling tired and reports she is working on dietary compliance, weight loss, walking with PT, and elevation of her BLEs. The dressing was removed and wound examined. Her lateral LLE wound is measuring smaller again and is stable in measurement but has new epithelial tissue growth; the medial aspect of her LLE area remains resolved and the lateral aspect is narrowing nicely. I performed extensive debridement to remove and break up devitalized tissue to her wound on LLE as detailed and she tolerated the procedure well after an application of lidocaine. I cleaned the wound with vashe and let it sit for about 4 minutes, I then cleaned the wound with wound cleanser and applied silver nitrate to the thickened and rolled edges. Nursing then applied zinc to periwound and intact epithelial islands on LLE, ag alg, optilock due to large drainage f.b abd and kerlix, tubi and sav wrap. Her R heel/plantar foot DTI is stable and lightening in appearance. We will request VNA perform dressing changes on Monday, applying zinc to periwound and intact epithelial islands, ag alg, optilock, abd and kerlix, cover with tubi and sav to LLE and skin prep to R heel/plantar foot. Vascular appointment was rescheduled to 09/17/24 and will appreciate additional recommendations. Continue elevation and weight loss as able; discussed elevating above the level of her heart which she has been trying to do as she has been using 2 new cushions. Elevation and compression recommended at length and discussed again today including importance of elevating both feet, avoiding pressure to heels and plantar feet. She will return for a follow up visit next Monday and will call in the interim w any questions or concerns. Elevation and protein supplementation, low salt, appropriate dietary compliance with weight loss to aid in wound healing. Patient and nursing agree w plan of care. I, Marissa Mauricio MSN, [facility], evaluated and treated the patient. Dr. Modesta Bal was available for any question or concerns that I may have had. A total of 40 minutes was spent on this visit (face to face and non face to face) documenting HPI and performing physical exam, reviewing previous notes and wound culture results, reviewing and formulating treatment plan, counseling the patient on treatment choices, disease process, expected outcomes, and documenting the findings in the note. 09/11/2024 Chronic venous hypertension (idiopathic) with ulcer and inflammation of left lower extremity (ICD-10 - I87.332) Tacos presents today for a follow up visit for treatment of left lower extremity chronic venous ulcer and R heel wound. On exam, afebrile and cooperative with care. She denies feeling tired and reports she is working on dietary compliance, weight loss, walking with PT, and elevation of her BLEs. The dressing was removed and wound examined. Her lateral LLE wound is stable in size but has new epithelial tissue growth; the medial aspect of her LLE area remains resolved and the lateral aspect is narrowing nicely. I performed extensive debridement to remove and break up devitalized tissue to her wound on LLE as detailed and she tolerated the procedure well after an application of lidocaine. I cleaned the wound with vashe and let it sit for about 4 minutes, I then cleaned the wound with wound cleanser and applied silver nitrate to the thickened and rolled edges. Nursing then applied zinc to periwound and intact epithelial islands on LLE, ag alg, optilock due to large drainage f.b abd and kerlix, tubi and sav wrap. Her R heel/plantar foot DTI is stable and lightening in appearance. We will request VNA perform dressing changes on Monday and Monday, applying zinc to periwound and intact epithelial islands, ag alg, optilock, abd and kerlix, cover with tubi and sav to LLE and skin prep to R heel/plantar foot. Vascular appointment was rescheduled to 09/17/24 and will appreciate additional recommendations. Continue elevation and weight loss as able; discussed elevating above the level of her heart which she has been trying to do as she has been using 2 new cushions. Elevation and compression recommended at length and discussed again today including importance of elevating both feet, avoiding pressure to heels and plantar feet. She will return for a follow up visit next Monday and will call in the interim w any questions or concerns. Elevation and protein supplementation, low salt, appropriate dietary compliance with weight loss to aid in wound healing. Patient and nursing agree w plan of care. IMarissa MSN, [facility], evaluated and treated the patient. Dr. Modesta Bal was available for any question or concerns that I may have had. A total of 38 minutes was spent on this visit (face to face and non face to face) documenting HPI and performing physical exam, reviewing previous notes and wound culture results, reviewing and formulating treatment plan, counseling the patient on treatment choices, disease process, expected outcomes, and documenting the findings in the note. 08/26/2024 Lymphedema (ICD-10 - I89.0) 08/21/2024 Pruritic dermatitis (ICD-10 - L30.8) 08/26/2024 Chronic venous hypertension (idiopathic) with ulcer and inflammation of left lower extremity (ICD-10 - I87.332) Tacos presents today for a follow up visit for treatment of left lower extremity chronic venous ulcer and R heel wound. On exam, afebrile and cooperative with care. She denies feeling tired and reports she is working on dietary compliance, weight loss, walking with PT, and elevation of her BLEs. The dressing was removed and wound examined. Her lateral LLE wound is measuring smaller again in width; the medial aspect of her LLE area remains resolved. I performed extensive debridement to remove and break up devitalized tissue to her wound on LLE as detailed and she tolerated the procedure well after an application of lidocaine. I cleaned the wound with vashe and let it sit for about 4 minutes, I then cleaned the wound with wound cleanser and applied silver nitrate to the thickened and rolled edges. Nursing then applied zinc to periwound and intact epithelial islands on LLE, ag alg, optilock due to large drainage f.b abd and kerlix, tubi and sav wrap. Her R heel/plantar foot DTI is improved in length and lightening in appearance. We will request VNA perform dressing changes daily, apply zinc to periwound and intact epithelial islands, ag alg, optilock, abd and kerlix, cover with tubi and sav to LLE and skin prep to R heel/plantar foot. Vascular appointment 08/27/24 and will appreciate additional recommendations; I have requested her records from 08/20/24 again as well and will review once available. She has her PCP follow up today and plans to discuss diuretics, neuropathic pain/burning, her restless leg syndrome as well as possible rehabilitation admission for strengthening, weight loss and wound healing. I opted out of placing her on additional abt as the wound is continuing to show signs of improvement; we discussed the possibility of culture colonization vs acute infection. Continue elevation as able; discussed elevating above the level of her heart which she has been trying to do as she has been using 2 new cushions. Elevation and compression recommended at length and discussed again today including importance of elevating both feet, avoiding pressure to heels and plantar feet. She will return in about one week for a follow up visit and will call in the interim w any questions or concerns. Elevation and protein supplementation, low salt, appropriate dietary compliance with weight loss to aid in wound healing. Patient and nursing agree w plan of care. IMarissa MSN, AGPCNP-BC examined, evaluated and treated the patient. Dr. Modesta Bal was available for any question or concerns that I may have had. A total of 42 minutes was spent on this visit (face to face and non face to face) documenting HPI and performing physical exam, reviewing previous notes and wound culture results, reviewing and formulating treatment plan, counseling the patient on treatment choices, disease process, expected outcomes, and documenting the findings in the note. 08/13/2024 Pruritic dermatitis (ICD-10 - L30.8) 08/21/2024 Chronic venous hypertension (idiopathic) with ulcer and inflammation of left lower extremity (ICD-10 - I87.332) Tacos presents today for a follow up visit for treatment of left lower extremity chronic venous ulcer and new R heel wound. On exam, afebrile and cooperative with care. She denies feeling tired and reports she is working on dietary compliance, weight loss, walking with PT, and elevation of her BLEs. The dressing was removed and wound examined. Her lateral LLE wound is measuring 1.7cm smaller in width; the medial aspect of her LLE area remains resolved. I performed extensive debridement to remove and break up devitalized tissue to her wound on LLE as detailed and she tolerated the procedure well after an application of lidocaine. I cleaned the wound with vashe and let it sit for about 4 minutes, I then cleaned the wound with wound cleanser and applied silver nitrate to the thickened and rolled edges. Nursing then applied zinc to periwound and intact epithelial islands on LLE, ag alg, optilock due to large drainage f.b abd and kerlix, tubi and sav wrap We will request VNA will perform dressing changes daily, apply zinc to periwound and intact epithelial islands, ag alg, optilock, abd and kerlix, cover with tubi and sav changing daily by VNA and herself over the weekend, coming here for weekly wound appointments. Vascular appointment tomorrow 08/22/24 and will appreciate additional recommendations; I have requested her records from yesterday as well and will review once available. She has her PCP follow up 08/26 (rescheduled from 08/20) when she will discuss diuretics, neuropathic pain/burning, her restless leg syndrome as well as possible rehabilitation admission for strengthening, weight loss and wound healing. I opted out of placing her on additional abt as the wound is improved today; I do not want to place her on additional levofloxacin given her new R heel wound. Continue elevation as able; discussed elevating above the level of her heart which she has been trying to do as she has been using 2 new cushions. Elevation and compression recommended at length and discussed again today including importance of elevating both feet, avoiding pressure to heels and plantar feet. She will return in about one week for a follow up visit and will call in the interim w any questions or concerns. Elevation and protein supplementation, low salt, appropriate dietary compliance with weight loss to aid in wound healing. Patient and nursing agree w plan of care. I, Marissa Mauricio MSN, [facility]- examined, evaluated and treated the patient. Dr. Modesta Bal was available for any question or concerns that I may have had. A total of 52 minutes was spent on this visit (face to face and non face to face) documenting HPI and performing physical exam, reviewing previous notes and wound culture results, reviewing and formulating treatment plan, counseling the patient on treatment choices, disease process, expected outcomes, and documenting the findings in the note. 08/13/2024 Chronic venous hypertension (idiopathic) with ulcer and inflammation of left lower extremity (ICD-10 - I87.332) Tacos presents today for a follow up visit for treatment of left lower extremity chronic venous ulcer. On exam, afebrile and cooperative with care. She denies feeling tired and reports she is working on dietary compliance, weight loss, walking with PT, and elevation of her BLEs. The dressing was removed and wound examined. Her lateral LLE wound is stable; the medial aspect of her LLE area remains resolved. I performed extensive debridement to remove and break up devitalized tissue to her wound on LLE as detailed and she tolerated the procedure well after an application of lidocaine. I cleaned the wound with vashe and let it sit for about 4 minutes, I then cleaned the wound with wound cleanser and applied silver nitrate to the thickened and rolled edges. Nursing then applied zinc to periwound and intact epithelial islands on LLE, ag alg, optilock due to large drainage f.b abd and kerlix, tubi and sav wrap We will request VNA will perform dressing changes daily, apply zinc to periwound and intact epithelial islands, ag alg, optilock, abd and kerlix, cover with tubi and sav changing daily by VNA and herself over the weekend, coming here for weekly wound appointments. Vascular appointment with ultrasounds scheduled for 08/16/24 and will appreciate additional recommendations. She has her PCP follow up 08/20 when she will discuss diuretics, neuropathic pain/burning, her restless leg syndrome as well as possible rehabilitation admission for strengthening, weight loss and wound healing. She will get labwork done today so I can review her kidney functions prior to placing her on additional antibiotics. Continue elevation as able; discussed elevating above the level of her heart which she has been trying to do as she has been using 2 new cushions. Elevation and compression recommended at length and discussed again today. She will get labs done today and I will treat her with abt based on her kidney functions thereafter. She will return in about one week for a follow up visit and will call in the interim w any questions or concerns. Elevation and protein supplementation, low salt, appropriate dietary compliance with weight loss to aid in wound healing. Patient and nursing agree w plan of care. I, Marissa Mauricio MSN, [facility]- examined, evaluated and treated the patient. Dr. Modesta Bal was available for any question or concerns that I may have had. A total of 55 minutes was spent on this visit (face to face and non face to face) documenting HPI and performing physical exam, reviewing previous notes and wound culture results, reviewing and formulating treatment plan, counseling the patient on treatment choices, disease process, expected outcomes, and documenting the findings in the note. 08/05/2024 Chronic venous hypertension (idiopathic) with ulcer and inflammation of left lower extremity (ICD-10 - I87.332) Tacos presents today for a follow up visit for treatment of left lower extremity chronic venous ulcer. On exam, afebrile and cooperative with care. She denies feeling tired and reports she is working on dietary compliance, weight loss and elevation of her BLEs. She admits she has not been elevating or taking her diuretics. The dressing was removed and wound examined. Her lateral LLE wound is measuring smaller and the medial LLE area has resolved. I performed extensive debridement to remove and break up devitalized tissue to her wound on LLE as detailed and she tolerated the procedure well after an application of lidocaine. I cleaned the wound with vashe. Nursing then cleaned the wound with wound cleanser, obtained a repeat wound culture and applied zinc to periwound and intact epithelial islands on LLE, ag alg, optilock due to large drainage f.b abd and kerlix, tubi and sav wrap We will request VNA will perform dressing changes daily, apply zinc to periwound and intact epithelial islands, ag alg, optilock, abd and kerlix, cover with tubi and sav changing daily by VNA and Monday's here in office. We certainly can trial Vashe instead of Dakins to prevent burning if she chooses to pick it up or buy OTC as it is not covered by her insurance. Vascular appointment with ultrasounds scheduled for 08/16/24 and will appreciate additional recommendations. She has her PCP follow up 08/20 when she will discuss diuretics, neuropathic pain/burning and her restless leg syndrome. Continue elevation as able; discussed elevating above the level of her heart which she has been trying to do as she has been using 2 new cushions. Elevation and compression recommended at length and discussed again today. I will call her with the results of her wound cultures when available. She will return in about one week for a follow up visit and will call in the interim w any questions or concerns. Elevation and protein supplementation, low salt, appropriate dietary compliance with weight loss to aid in wound healing. Encouraged importance of no chineese food. Patient and nursing agree w plan of care. I, Marissa Mauricio MSN, [facility]- examined, evaluated and treated the patient. Dr. Modesta Bal was available for any question or concerns that I may have had. 07/25/2024 Chronic venous hypertension (idiopathic) with ulcer and inflammation of left lower extremity (ICD-10 - I87.332) Tacos presents today for a follow up visit for treatment of left lower extremity chronic venous ulcer. On exam, vital signs stable, afebrile, non-ill appearing. I removed the dressing and examined the wound located on the left lateroposterior leg. Wound is measuring smaller, wound bed with slough, thickened rolled edges, no surrounding erythema, no purulence, no odor. She has itching surrounding the wound. I discussed the indication for debridement and she was agreeable to procedure. I performed debridement of the ulcer as outlined above and used silver nitrate to cauterize epibole. Ulcer was cleaned with Dakins, rinsed with saline and Aquacel ag was applied to the wound bed, zinc to periwound secured with dsd. Triamcinolone was applied to pruritic skin. Tubigrip and sav wrap was applied to left leg. She tolerated the procedure well. Tacos's wound is stable. There are no signs of acute infectious process. She will continue with Levofloxcin and Linezold for the full course, reports tolerating it well. Will trial Vashe instead of Dakins to prevent burning. Continue with applying Aquacel ag to the wound bed, zinc to periwound secure with dsd. She will use tubigrip and sav wrap for compression. Has vascular ultrasound on 08/16. Leg elevation is encouraged. She will return in 1 week for a follow up visit. I, Zak Manley [facility], examined, evaluated and treated the patient. Dr. Modesta Bal was available for any question or concerns that I may have had. 07/25/2024 Pruritic dermatitis (ICD-10 - L30.8) 07/31/2024 Chronic venous hypertension (idiopathic) with ulcer and inflammation of left lower extremity (ICD-10 - I87.332) Tacos presents today for a follow up visit for treatment of left lower extremity chronic venous ulcer. On exam, afebrile and cooperative with care. She denies feeling ill and reports she is working on dietary compliance, weight loss and elevation of her BLEs. The dressing was removed and wound examined. Her lateral LLE wound is measuring smaller and the medial LLE area has resolved. I performed extensive debridement to remove and break up devitalized tissue to her wound on LLE as detailed and she tolerated the procedure well after an application of lidocaine. I cleaned the wound with vashe and then saline and then applied silver nitrate to cauterize the thickened and rolled edges. Nursing then cleaned the wound with wound cleanser and applied zinc to periwound and intact epithelial islands on LLE, ag alg, optilock due to large drainage f.b abd and kerlix, tubi and sav wrap We will request VNA will perform dressing changes daily, apply zinc to periwound and intact epithelial islands, ag alg, optilock, abd and kerlix, cover with tubi and sav changing daily by VNA and Monday's here in office. We certainly can trial Vashe instead of Dakins to prevent burning if she chooses to pick it up as it is not covered by her insurance. Vascular appointment with ultrasounds scheduled for 08/16/24 and will appreciate additional recommendations. I have requested her vascular report with [facility] from 07/15/24 again today and will review once available. She will complete her abt as ordered and is tolerating well, continuing with 2 yogurts daily. Continue elevation as able; discussed elevating above the level of her heart which she admits she still hasn't been doing but is working on; she states she just got 2 cushions to help with elevation and plans to start using them. Elevation and compression recommended at length and discussed again today. She will return in about one week for a follow up visit and will call in the interim w any questions or concerns. Patient and nursing agree w plan of care. I, Marissa Mauricio MSN, [facility]- examined, evaluated and treated the patient. Dr. Modesta Bal was available for any question or concerns that I may have had. 07/17/2024 Chronic venous hypertension (idiopathic) with ulcer and inflammation of left lower extremity (ICD-10 - I87.332) On exam, afebrile and cooperative with care. She denies feeling ill and reports she is working on dietary compliance, weight loss and elevation of her BLEs. The dressing was removed and wound examined. Her lateral LLE wound is measuring smaller but wound healing appears overall stagnant and the medial aspect is starting to open secondary to drainage with periwound moisture and maceration. I performed extensive debridement to remove and break up devitalized tissue to her wound on LLE as detailed and she tolerated the procedure well after an application of lidocaine. The wound has more granular tissue today. I cleaned the wound with dakins moist gauze and then applied to let sit on the wound for 5 mins or as long as she was able to tolerate until the burning began. Nursing then cleaned the wound with wound cleanser and applied zinc to periwound and intact epithelial islands on LLE, ag alg, optilock due to large drainage f.b abd and kerlix, tubi and sav wrap We will request VNA will perform dressing changes daily, apply zinc to periwound and intact epithelial islands, ag alg, optilock, abd and kerlix, cover with tubi and sav changing daily by VNA and Monday's here in office. Vascular appointment with ultrasounds scheduled for 08/16/24 and will appreciate additional recommendations. I have requested her vascular report with Dr. Morataya from 07/15/24 and will review once available. We reviewed her wound culture results today togeether and will start her on linezolid and levaquin X 14 days due to both bacterial growth. She will eat 2-3 activia yogurts daily, and will call with nausea or vomiting or an inability to keep antibiotics down. Continue both tubi and sav wrap to LLE. Educated regarding sxs infection and when to go to ED. Continue elevation as able; discussed elevating above the level of her heart which she admits she still hasn't been doing but is working on. Elevation and compression recommended at length and discussed again today. She will return in about one week for a follow up visit and will call in the interim w any questions or concerns. Patient and nursing agree w plan of care. I, Marissa Mauricoi MSN, [facility], evaluated and treated the patient. Dr. Modesta Bal was available for any question or concerns that I may have had. 07/10/2024 Chronic venous hypertension (idiopathic) with ulcer and inflammation of left lower extremity (ICD-10 - I87.332) On exam, febrile today, ranging from 101.3-101.7. She denies feeling ill but does report she hasn't been sleeping. The dressing was removed and wound examined. Her cheeks are flush, her skin is warm but there were no other findings to indicate infection aside from persistent wound deterioration. Her lateral LLE wound is measuring larger again, and the medial aspect has the most drainage and it appears to be fluid related with periwound moisture and maceration. I performed extensive debridement to remove and break up devitalized tissue to her wound on LLE as detailed and she tolerated the procedure well after an application of lidocaine. The wound has more granular tissue today. I cleaned the wound with wound cleanser and obtained a repeat wound culture. Nursing then applied zinc to periwound and intact epithelial islands on LLE, ag alg, optilock due to large drainage f.b abd and kerlix, tubi and sav wrap We will request VNA will perform dressing changes daily, apply zinc to periwound and intact epithelial islands, ag alg, optilock, abd and kerlix, cover with tubi and sav changing daily by VNA and Monday's here in office. Vascular appointment scheduled for 07/15/24 and will appreciate additional recommendations. We discussed going to the ED due to her changing her dressing BID, temperature and concerns for infection and potentially sepsis, but she refuses and declines, stating she feels fine. She reports she will take her temperature at home, and if goes beyond 101.7 she will go to the ED. Tubi and sav to LLE. Continue elevation as able; discussed elevating above the level of her heart which she admits she still hasn't been doing but is working on. Elevation and compression recommended at length and discussed again today. She will return in one week for a follow up visit and will call in the interim w any questions or concerns. Patient and nursing agree w plan of care. I, Marissa Mauricio MSN, [facility], evaluated and treated the patient. Dr. Modesta Bal was available for any question or concerns that I may have had. 07/01/2024 Chronic venous hypertension (idiopathic) with ulcer and inflammation of left lower extremity (ICD-10 - I87.332) On exam, afebrile. The dressing was removed and wound examined. Her lateral LLE wound is measuring larger again, and the medial aspect has the most drainage and it appears to be fluid related with periwound moisture and maceration. I performed extensive debridement to remove and break up devitalized tissue to her wound on LLE as detailed and she tolerated the procedure well after an application of lidocaine. The thick slough cleaned up nicely.I cleaned the wound with wound cleanser. Nursing then applied zinc to periwound and intact epithelial islands on LLE, ag alg, optilock due to large drainage f.b abd and kerlix, tubi and sav wrap We will request VNA will perform dressing changes daily, apply zinc to periwound and intact epithelial islands, ag alg, optilock, abd and kerlix, cover with tubi and sav changing daily by VNA and Monday's here in office.She will call vascular to make an appt with Dr. Morataya as well as her PCP to discuss increasing her pregabalin. She will complete keflex as prescribed last week. Tubi and sav to LLE. Continue elevation as able; discussed elevating above the level of her heart which she admits she still hasn't been doing but is working on. Elevation and compression recommended at length and discussed again today. She will return in one week for a follow up visit and will call in the interim w any questions or concerns. Patient and nursing agree w plan of care. I, Marissa Mauricio MSN, [facility], evaluated and treated the patient. Dr. Modesta Bal was available for any question or concerns that I may have had. 06/24/2024 Morbid obesity (ICD-10 - E66.01) 06/24/2024 Chronic venous hypertension (idiopathic) with ulcer and inflammation of left lower extremity (ICD-10 - I87.332) On exam, afebrile. The dressing was removed and wound examined. Her lateral LLE wound is measuring larger again, and the medial aspect has the most drainage and it appears to be fluid related. She admits to having a salty dinner last night with corned beef. I performed extensive debridement to remove and break up devitalized tissue to her wound on LLE as detailed and she tolerated the procedure well after an application of lidocaine. The thick slough cleaned up nicely.I cleaned the wound with wound cleanser. Nursing then applied zinc to periwound and intact epithelial islands on LLE, ag alg, optilock due to large drainage f.b abd and kerlix, tubi and sav wrap We will request VNA will perform dressing changes daily, apply zinc to periwound and intact epithelial islands, ag alg, optilock, abd and kerlix, cover with tubi and sav changing Monday and Monday by VNA and Monday's here in office. I wrote an rx in hopes they can come more frequently to her home and provide dressing changes; this worked last week so I did it again x30 days. I also wrote an rx and am e prescribing cephalexin-she was recently on doxy and levaquin without improvement. She is hesitatnt but agreeable to going to [facility] for another recommedation; she has not been in over a year and is hesitatnt but agreeable to seeing Dr. Morataya for evaluation and additional reommendations and workup. Tubi and sav to LLE. Continue elevation as able; discussed elevating above the level of her heart which she admits she hadn't been doing but is working on. Elevation and compression recommended at length and discussed again today. She will return in one week for a follow up visit and will call in the interim w any questions or concerns. Patient and nursing agree w plan of care. Marissa Reeves, [facility] examined, evaluated and treated the patient. Dr. Modesta Bal was available for any question or concerns that I may have had. 06/17/2024 Chronic venous hypertension (idiopathic) with ulcer and inflammation of left lower extremity (ICD-10 - I87.332) On exam, afebrile. The dressing was removed and wound examined. Her lateral LLE wound is slightly improved. I performed extensive debridement to remove and break up devitalized tissue to her wound on LLE as detailed and she tolerated the procedure well after two applications of lidocaine. The thick slough cleaned up nicely. I then applied dakins solution and then cleaned with wound cleanser. Nursing then applied zinc to periwound and intact epithelial islands on LLE, ag alg, optilock due to large drainage f.b abd and kerlix, tubi and sav wrap We will request VNA will perform dressing changes daily X 1 week first cleaning with dakins solution, then apply zinc to periwound and intact epithelial islands, ag alg, optilock, abd and kerlix, cover with tubi and sav changing Monday and Monday by VNA and Monday's here in office. I wrote an rx in hopes they can come more frequently to her home and provide dressing changes. Tubi and sav to LLE. Continue elevation as able; discussed elevating above the level of her heart which she admits she hadn't been doing but is working on. She does not want to go back to vascular and reports her does not want to come in to learn dressing changes or compression application. Elevation and compression recommended at length and discussed again today. She will return in one week for a follow up visit and will call in the interim w any questions or concerns. Patient and nursing agree w plan of care. Marissa Reeves, [facility] examined, evaluated and treated the patient. Dr. Modesta Bal was available for any question or concerns that I may have had. 06/10/2024 Chronic venous hypertension (idiopathic) with ulcer and inflammation of left lower extremity (ICD-10 - I87.332) On exam, afebrile. The dressing was removed and wound examined. Her lateral LLE wound healing appears stagnant. I performed extensive debridement to remove and break up devitalized tissue to her wound on LLE as detailed and she tolerated the procedure well after an application of lidocaine.I then applied dakins solution. Nursing then applied zinc to periwound and intact epithelial islands on LLE, ag alg, optilock due to large drainage f.b abd and kerlix, tubi and sav wrap We will request VNA will perform dressing changes daily X 1 week first cleaning with dakins solution, then apply zinc to periwound and intact epithelial islands, ag alg, optilock, abd and kerlix, cover with tubi and sav changing Monday and Monday by VNA and Monday's here in office. Tubi and sav to LLE. Continue elevation as able; discussed elevating above the level of her heart which she admits she has not been doing and will work on. She is hesitant to going back to vascular despite recommendations, but if no improvement is seen in the coming weeks is agreeable to discussing again. Elevation and compression recommended at length and discussed again today. She will return in one week for a follow up visit and ABIs and will call in the interim w any questions or concerns. Patient and nursing agree w plan of care. IMarissa MSN, [facility]- examined, evaluated and treated the patient. Dr. Modesta Bal was available for any question or concerns that I may have had. 05/27/2024 Chronic venous hypertension (idiopathic) with ulcer and inflammation of left lower extremity (ICD-10 - I87.332) On exam, afebrile. The dressing was removed and wound examined. Her lateral LLE wound is measuring smaller and has mixed granular tissue and slough with some epithelial islands, still large to copious ss drainage but the medial aspect is healing and more superficial today, less overall edema and no periwound erythema or warmth. I performed extensive debridement to remove and break up devitalized tissue to her wound on LLE as detailed and she tolerated the procedure well after an application of lidocaine.I then applied dakins solution. Nursing then applied zinc to periwound and intact epithelial islands on LLE, ag alg, optilock due to large drainage f.b abd and kerlix, tubi and sav wrap We will request VNA will perform dressing changes daily X 1 week first cleaning with dakins solution, then apply zinc to periwound and intact epithelial islands, ag alg, optilock, abd and kerlix, cover with tubi and sav changing Monday and Monday by VNA and Monday's here in office. Tubi and sav to LLE. Continue elevation as able. I requested her be present for her next visit to learn to properly apply the tubi and sav compression wraps, recommended she continue her pregabalin, RLS med as well as lasix all as ordered, making a schedule, taking at the same time daily to increase compliance. Elevation and compression recommended at length and discussed again today. She will return in one week for a follow up visit and will call in the interim w any questions or concerns. Patient and nursing agree w plan of care. I, Marissa Mauricio MSN, [facility]- examined, evaluated and treated the patient. Dr. Modesta Bal was available for any question or concerns that I may have had. 05/20/2024 Chronic venous hypertension (idiopathic) with ulcer and inflammation of left lower extremity (ICD-10 - I87.332) On exam, afebrile. The dressing was removed and wound examined. Her lateral LLE wound is measuring smaller and has mixed granular tissue and slough with some epithelial islands, still large to copious ss drainage but the medial aspect is healing and more superficial today, less overall edema and no periwound erythema or warmth. I performed extensive debridement to remove and break up devitalized tissue to her wound on LLE as detailed and she tolerated the procedure well after an application of lidocaine.I then applied dakins solution. Nursing then applied triamcinolone to the distal pruritic aspect of the wound, zinc to periwound and intact epithelial islands on LLE, ag alg, optilock due to large drainage f.b abd and kerlix, tubi and sav wrap We will request VNA will perform dressing changes daily X 1 week first cleaning with dakins solution, then apply triamcinolone to periwound, zinc to periwound and intact epithelial islands, ag alg, optilock, abd and kerlix, cover with tubi and sav changing Monday and Monday by VNA and Monday's here in office. Tubi and sav to LLE. Continue elevation as able and will appreciate any additional PCP input and recommendations. Elevation and compression recommended at length and discussed again today. She will return in one week for a follow up visit and will call in the interim w any questions or concerns. Patient and nursing agree w plan of care. I, Marissa Mauricio MSN, [facility]- examined, evaluated and treated the patient. Dr. Modesta Bal was available for any question or concerns that I may have had. addendum 05/10/24 1006: sent e prescription fax for 7 days of levaquin, called and spoke with tacos to update her on wound culture results, + for pseudomonas and strep. She reports she is taking 900mg gabapentin TID and has sent in a portal request for the refill of lasix-she reports she has 18 left, so was inquiring if she should restart them as they were prescribed in 10/2023. 05/13/2024 Chronic venous hypertension (idiopathic) with ulcer and inflammation of left lower extremity (ICD-10 - I87.332) On exam, afebrile. The dressing was removed and wound examined. Her lateral LLE wound is measuring smaller and has mixed granular tissue and slough with some epithelial islands, still large to copious ss drainage but the medial aspect is healing and more superficial today, less overall edema and no periwound erythema or warmth. I performed debridement to remove and break up devitalized tissue to her wound on LLE as detailed and she tolerated the procedure well after an application of lidocaine.I then applied dakins solution. Nursing then applied triamcinolone to the distal pruritic aspect of the wound, zinc to periwound and intact epithelial islands on LLE, ag alg, optilock due to large drainage f.b abd and kerlix, tubi and sav wrap VNA will perform dressing changes Monday and Monday first cleaning with dakins solution, then apply triamcinolone to periwound, zinc to periwound and intact epithelial islands, ag alg, optilock, abd and kerlix, cover with tubi and sav changing Monday and Monday by VNA and Monday's here in office. Tubi and sav to LLE. We discussed her taking the levofloxacin and she will start it today, modified bed rest, elevating and resting as much as possible. Elevation and compression recommended at length and discussed again today. Recommended she connect with PCP re furosemide, gabapentin, and dosage of RLS medication (currently 0.5mg TID). She will return in one week for a follow up visit and will call in the interim w any questions or concerns. Patient and nursing agree w plan of care. I, Marissa Mauricio MSN, [facility]- examined, evaluated and treated the patient. Dr. Modesta Bal was available for any question or concerns that I may have had. addendum 05/10/24 1006: sent e prescription fax for 7 days of levaquin, called and spoke with tacos to update her on wound culture results, + for pseudomonas and strep. She reports she is taking 900mg gabapentin TID and has sent in a portal request for the refill of lasix-she reports she has 18 left, so was inquiring if she should restart them as they were prescribed in 10/2023. 05/06/2024 Chronic venous hypertension (idiopathic) with ulcer and inflammation of left lower extremity (ICD-10 - I87.332) On exam, afebrile. The dressing was removed and wound examined. Her lateral LLE wound is measuring larger and has mixed granular tissue and slough with some epithelial islands, circumferential now and another new area to her medial LLE, large ss drainage. There is periwound erythema warmth and edema concerning for infection. I performed debridement to remove and break up devitalized tissue to her wound on LLE as detailed and she tolerated the procedure well after an application of lidocaine. I cleaned the wound with wound cleanser and obtained a wound culture. I then applied dakins solution. Nursing then applied triamcinolone to the distal pruritic aspect of the wound, zinc to periwound and intact epithelial islands on LLE, ag alg, optilock due to large drainage f.b abd and kerlix, tubi and sav wrap VNA will perform dressing changes Monday and Monday first cleaning with dakins solution, then apply triamcinolone to periwound, zinc to periwound and intact epithelial islands, ag alg, optilock, abd and kerlix, cover with tubi and sav changing Monday and Monday by VNA and Lucas's here in office. Tubi and sav to LLE. I will call with the results of her wound culture. Elevation and compression recommended at length and discussed again today. Recommended she complete her doxy, call PPC re furosemide and continue gabapentin. She will return in one week for a follow up visit and will call in the interim w any questions or concerns. Patient and nursing agree w plan of care. I, Marissa Mauricio MSN, [facility]- examined, evaluated and treated the patient. Dr. Modesta Bal was available for any question or concerns that I may have had. addendum 05/10/24 1006: sent e prescription fax for 7 days of levaquin, called and spoke with tacos to update her on wound culture results, + for pseudomonas and strep. She reports she is taking 900mg gabapentin TID and has sent in a portal request for the refill of lasix-she reports she has 18 left, so was inquiring if she should restart them as they were prescribed in 10/2023. 04/22/2024 Chronic venous hypertension (idiopathic) with ulcer and inflammation of left lower extremity (ICD-10 - I87.332) On exam, afebrile. The dressing was removed and wound examined. Her lateral LLE wound is measuring larger and has mixed granular tissue and slough with some epithelial islands, large ss drainage. I performed debridement to remove and break up devitalized tissue to her wound on LLE as detailed and she tolerated the procedure well after an application of lidocaine. There were no findings to indicate any acute underlying infectious process, but given stagnant wound healing and excessive drainage, bioburden appears to be building up. I cleaned the wound with wound cleanser and then dakins solution. Nursing then applied triamcinolone to the distal pruritic aspect of the wound, zinc to periwound and intact epithelial islands on LLE, ag alg, optilock due to large drainage f.b abd and kerlix, tubi and sav wrap VNA will perform dressing changes Monday and Monday first cleaning with dakins solution, then apply triamcinolone to periwound, zinc to periwound and intact epithelial islands, ag alg, optilock, abd and kerlix, cover with tubi and sav changing Monday and Monday by VNA and Monday's here in office. Tubi and sav to LLE. Elevation and compression recommended at length and discussed again today. Recommended she continue to take her furosemide as ordered. Wrote rx for doxycycline 100mg BID X 14 days. She will return in one week for a nurse visit and two weeks for a provider visit and will call in the interim w any questions or concerns. Patient and nursing agree w plan of care. Marissa Reeves MSN, [facility]- examined, evaluated and treated the patient. Dr. Modesta Bal was available for any question or concerns that I may have had. 04/15/2024 Chronic venous hypertension (idiopathic) with ulcer and inflammation of left lower extremity (ICD-10 - I87.332) On exam, afebrile. The dressing was removed and wound examined. Her lateral LLE wound is measuring larger and has mixed granular tissue and slough with some epithelial islands, large ss drainage. I performed debridement to remove and break up devitalized tissue to her wound on LLE as detailed and she tolerated the procedure well after an application of lidocaine. There were no findings to indicate any acute underlying infectious process. I cleaned the wound with wound cleanser and then dakins solution. Nursing then applied triamcinolone to the distal pruritic aspect of the wound, zinc to periwound and intact epithelial islands on LLE, HFB classic, optilock due to large drainage f.b abd and kerlix, tubi and sav wrap VNA will perform dressing changes Monday and Monday first cleaning with dakins solution, then apply triamcinolone to periwound, zinc to periwound and intact epithelial islands, HFB classic, optilock, abd and kerlix, cover with tubi and sav changing Monday and Monday by VNA and Monday's here in office. Tubi and sav to LLE. Elevation and compression recommended at length and discussed again today. Recommended she take her furosemide as ordered. She will return in one week for a follow up visit and will call in the interim w any questions or concerns. Patient and nursing agree w plan of care. Marissa Reeves MSN, [facility]- examined, evaluated and treated the patient. Dr. Modesta Bal was available for any question or concerns that I may have had. 04/08/2024 Chronic venous hypertension (idiopathic) with ulcer and inflammation of left lower extremity (ICD-10 - I87.332) Dressing changed as above, no concerns today 04/01/2024 Chronic venous hypertension (idiopathic) with ulcer and inflammation of left lower extremity (ICD-10 - I87.332) On exam, afebrile. The dressing was removed and wound examined. Her lateral LLE wound is much grounds cleaner with primarily granular tissue, large ss drainage. The wound is improving and the slough is easily removed from the wound with debridement. I performed debridement to remove and break up devitalized tissue to her wound on LLE as detailed and she tolerated the procedure well after an application of lidocaine. There were no findings to indicate any acute underlying infectious process. I cleaned the wound with wound cleanser and then dakins solution. Nursing then applied triamcinolone to the distal pruritic aspect of the wound, zinc to periwound and intact epithelial islands on LLE, aquacel ag, optilock due to large drainage f.b coflex TLC VNA will perform dressing changes Monday and Monday first cleaning with dakins solution, then apply triamcinolone to periwound, zinc to periwound and intact epithelial islands, aquacel ag f/b coflex TLC changing Monday and Monday by VNA and Monday's here in office. If not available, may use aquacel ag. Tubi and sav to LLE. Elevation and compression recommended at length. She will return in two weeks for a follow up appointment, one week for a nurse visit and will call in the interim w any questions or concerns. Patient and nursing agree w plan of care. I, Marissa Mauricio MSN, [facility], evaluated and treated the patient. Dr. Modesta Bal was available for any question or concerns that I may have had. 03/26/2024 Morbid obesity (ICD-10 - E66.01) 03/18/2024 Peripheral vascular disease, unspecified (ICD-10 - I73.9) 03/11/2024 Peripheral vascular disease, unspecified (ICD-10 - I73.9) 03/04/2024 Peripheral vascular disease, unspecified (ICD-10 - I73.9) 02/26/2024 Peripheral vascular disease, unspecified (ICD-10 - I73.9) 02/19/2024 Peripheral vascular disease, unspecified (ICD-10 - I73.9) 02/12/2024 Peripheral vascular disease, unspecified (ICD-10 - I73.9) 02/05/2024 Peripheral vascular disease, unspecified (ICD-10 - I73.9) 01/23/2024 Peripheral vascular disease, unspecified (ICD-10 - I73.9) 01/29/2024 Morbid (severe) obesity due to excess calories (ICD-10 - E66.01) 01/01/2024 Peripheral vascular disease (ICD-10 - I73.9) 01/08/2024 Morbid (severe) obesity due to excess calories (ICD-10 - E66.01) 01/01/2024 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 (ICD-10 - L97.825) 01/08/2024 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 (ICD-10 - L97.825) 01/23/2024 Morbid (severe) obesity due to excess calories (ICD-10 - E66.01) 02/12/2024 Morbid (severe) obesity due to excess calories (ICD-10 - E66.01) 02/05/2024 Morbid (severe) obesity due to excess calories (ICD-10 - E66.01) 01/29/2024 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 (ICD-10 - L97.825) 02/19/2024 Morbid (severe) obesity due to excess calories (ICD-10 - E66.01) 02/26/2024 Morbid (severe) obesity due to excess calories (ICD-10 - E66.01) 03/04/2024 Morbid (severe) obesity due to excess calories (ICD-10 - E66.01) 03/11/2024 Morbid (severe) obesity due to excess calories (ICD-10 - E66.01) 03/18/2024 Morbid (severe) obesity due to excess calories (ICD-10 - E66.01) 03/26/2024 Peripheral vascular disease (ICD-10 - I73.9) 04/01/2024 Morbid obesity (ICD-10 - E66.01) 04/08/2024 Morbid obesity (ICD-10 - E66.01) 04/15/2024 Morbid obesity (ICD-10 - E66.01) 04/22/2024 Morbid obesity (ICD-10 - E66.01) 05/06/2024 Morbid obesity (ICD-10 - E66.01) 05/13/2024 Morbid obesity (ICD-10 - E66.01) 05/20/2024 Morbid obesity (ICD-10 - E66.01) 05/27/2024 Morbid obesity (ICD-10 - E66.01) 06/10/2024 Morbid obesity (ICD-10 - E66.01) 06/17/2024 Morbid obesity (ICD-10 - E66.01) 06/24/2024 Peripheral vascular disease (ICD-10 - I73.9) 07/01/2024 Morbid obesity (ICD-10 - E66.01) 07/17/2024 Morbid obesity (ICD-10 - E66.01) 07/10/2024 Morbid obesity (ICD-10 - E66.01) 08/05/2024 Pruritic dermatitis (ICD-10 - L30.8) 07/31/2024 Pruritic dermatitis (ICD-10 - L30.8) 07/25/2024 Lymphedema (ICD-10 - I89.0) 08/13/2024 Lymphedema (ICD-10 - I89.0) 08/21/2024 Lymphedema (ICD-10 - I89.0) 09/04/2024 Lymphedema (ICD-10 - I89.0) 08/26/2024 Morbid obesity (ICD-10 - E66.01) 09/11/2024 Lymphedema (ICD-10 - I89.0) 09/18/2024 Lymphedema (ICD-10 - I89.0) 09/30/2024 Lymphedema (ICD-10 - I89.0) 09/18/2024 Morbid obesity (ICD-10 - E66.01) 09/30/2024 Morbid obesity (ICD-10 - E66.01) 09/11/2024 Morbid obesity (ICD-10 - E66.01) 09/04/2024 Morbid obesity (ICD-10 - E66.01) 08/21/2024 Morbid obesity (ICD-10 - E66.01) 08/26/2024 Peripheral vascular disease (ICD-10 - I73.9) 07/31/2024 Lymphedema (ICD-10 - I89.0) 08/05/2024 Lymphedema (ICD-10 - I89.0) 08/13/2024 Morbid obesity (ICD-10 - E66.01) 07/10/2024 Peripheral vascular disease (ICD-10 - I73.9) 07/17/2024 Peripheral vascular disease (ICD-10 - I73.9) 07/25/2024 Morbid obesity (ICD-10 - E66.01) 07/01/2024 Peripheral vascular disease (ICD-10 - I73.9) 06/17/2024 Peripheral vascular disease (ICD-10 - I73.9) 06/24/2024 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 (ICD-10 - L97.825) 06/10/2024 Peripheral vascular disease (ICD-10 - I73.9) 05/27/2024 Peripheral vascular disease (ICD-10 - I73.9) 05/20/2024 Peripheral vascular disease (ICD-10 - I73.9) 05/13/2024 Peripheral vascular disease (ICD-10 - I73.9) 05/06/2024 Peripheral vascular disease (ICD-10 - I73.9) 04/22/2024 Peripheral vascular disease (ICD-10 - I73.9) 04/15/2024 Peripheral vascular disease (ICD-10 - I73.9) 04/08/2024 Peripheral vascular disease (ICD-10 - I73.9) 04/01/2024 Peripheral vascular disease (ICD-10 - I73.9) 03/26/2024 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 (ICD-10 - L97.825) 03/18/2024 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 (ICD-10 - L97.825) 03/11/2024 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 (ICD-10 - L97.825) 03/04/2024 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 (ICD-10 - L97.825) 02/19/2024 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 (ICD-10 - L97.825) 02/26/2024 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 (ICD-10 - L97.825) 02/12/2024 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 (ICD-10 - L97.825) 01/29/2024 Non-pressure chronic ulcer of other part of left lower leg limited to breakdown of skin (ICD-10 - L97.821) 02/05/2024 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 On exam, vital signs stable, afebrile, non-ill appearing. I removed the dressing and examined the wound located on the left lateroposterior leg. Wound is measuring smaller, wound bed with slough, fibrinous rim, no surrounding erythema, no purulence, no odor. I discussed the indication for debridement and she was agreeable to procedure. I performed debridement of the ulcer as outlined above. Ulcer was cleaned with Dakins, rinsed with saline and Aquacel ag was applied to the wound bed, zinc to periwound secured with dsd. Tubigrip was applied to left leg. She tolerated the procedure well. Tacos's wound is improving. We will continue with current wound treatment. VNA will wash the wound with Dakins, rinse with saline, applying Aquacel ag to the wound bed, zinc to periwound secure with dsd. She will use tubigrip for compression during waking hours. Leg elevation is encouraged. She will return in 1 week for a follow up visit. [facility], examined, evaluated and treated the patient. Dr. Modesta Bal was available for any question or concerns that I may have had. 01/08/2024 Non-pressure chronic ulcer of other part of left lower leg limited to breakdown of skin (ICD-10 - L97.821) 01/08/2024 Lymphedema, not elsewhere classified (ICD-10 - I89.0) 01/23/2024 Non-pressure chronic ulcer of other part of left lower leg limited to breakdown of skin (ICD-10 - L97.821) 02/05/2024 Non-pressure chronic ulcer of other part of left lower leg limited to breakdown of skin (ICD-10 - L97.821) 01/29/2024 Lymphedema, not elsewhere classified (ICD-10 - I89.0) 02/12/2024 Non-pressure chronic ulcer of other part of left lower leg limited to breakdown of skin (ICD-10 - L97.821) 02/19/2024 Non-pressure chronic ulcer of other part of left lower leg limited to breakdown of skin (ICD-10 - L97.821) 03/04/2024 Non-pressure chronic ulcer of other part of left lower leg limited to breakdown of skin (ICD-10 - L97.821) 02/26/2024 Non-pressure chronic ulcer of other part of left lower leg limited to breakdown of skin (ICD-10 - L97.821) 03/11/2024 Non-pressure chronic ulcer of other part of left lower leg limited to breakdown of skin (ICD-10 - L97.821) 03/18/2024 Non-pressure chronic ulcer of other part of left lower leg limited to breakdown of skin (ICD-10 - L97.821) 04/08/2024 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 (ICD-10 - L97.825) 04/01/2024 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 (ICD-10 - L97.825) 04/15/2024 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 (ICD-10 - L97.825) 04/22/2024 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 (ICD-10 - L97.825) 05/06/2024 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 (ICD-10 - L97.825) 05/13/2024 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 (ICD-10 - L97.825) 05/20/2024 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 (ICD-10 - L97.825) 05/27/2024 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 (ICD-10 - L97.825) 06/10/2024 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 (ICD-10 - L97.825) 06/17/2024 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 (ICD-10 - L97.825) 06/24/2024 Cellulitis of left lower leg (ICD-10 - L03.116) 07/01/2024 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 (ICD-10 - L97.825) 07/10/2024 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 (ICD-10 - L97.825) 07/25/2024 Peripheral vascular disease (ICD-10 - I73.9) 07/17/2024 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 (ICD-10 - L97.825) 08/13/2024 Peripheral vascular disease (ICD-10 - I73.9) 08/05/2024 Morbid obesity (ICD-10 - E66.01) 07/31/2024 Morbid obesity (ICD-10 - E66.01) 08/26/2024 Pressure injury of deep tissue of right heel (ICD-10 - L89.616) 08/21/2024 Peripheral vascular disease (ICD-10 - I73.9) 09/04/2024 Peripheral vascular disease (ICD-10 - I73.9) 09/18/2024 Peripheral vascular disease (ICD-10 - I73.9) 09/11/2024 Peripheral vascular disease (ICD-10 - I73.9) 09/30/2024 Peripheral vascular disease (ICD-10 - I73.9) 09/30/2024 Pressure injury of deep tissue of right heel (ICD-10 - L89.616) 09/18/2024 Pressure injury of deep tissue of right heel (ICD-10 - L89.616) 09/11/2024 Pressure injury of deep tissue of right heel (ICD-10 - L89.616) 09/04/2024 Pressure injury of deep tissue of right heel (ICD-10 - L89.616) 08/13/2024 Cellulitis of left lower leg (ICD-10 - L03.116) 08/21/2024 Cellulitis of left lower leg (ICD-10 - L03.116) 07/31/2024 Peripheral vascular disease (ICD-10 - I73.9) 08/05/2024 Peripheral vascular disease (ICD-10 - I73.9) 07/10/2024 Cellulitis of left lower leg (ICD-10 - L03.116) 07/17/2024 Cellulitis of left lower leg (ICD-10 - L03.116) 07/01/2024 Cellulitis of left lower leg (ICD-10 - L03.116) 03/18/2024 Lymphedema, not elsewhere classified (ICD-10 - I89.0) 03/11/2024 Lymphedema, not elsewhere classified (ICD-10 - I89.0) 03/04/2024 Lymphedema, not elsewhere classified (ICD-10 - I89.0) 02/19/2024 Lymphedema, not elsewhere classified (ICD-10 - I89.0) 02/26/2024 Lymphedema, not elsewhere classified (ICD-10 - I89.0) 01/29/2024 Dermatitis (ICD-10 - L30.9) 02/05/2024 Lymphedema, not elsewhere classified (ICD-10 - I89.0) 02/12/2024 Lymphedema, not elsewhere classified (ICD-10 - I89.0) 01/23/2024 Lymphedema, not elsewhere classified (ICD-10 - I89.0) 02/05/2024 Dermatitis (ICD-10 - L30.9) 02/26/2024 Dermatitis (ICD-10 - L30.9) 02/19/2024 Dermatitis (ICD-10 - L30.9) 02/12/2024 Dermatitis (ICD-10 - L30.9) 03/04/2024 Dermatitis (ICD-10 - L30.9) 03/11/2024 Dermatitis (ICD-10 - L30.9) 03/18/2024 Dermatitis (ICD-10 - L30.9) 08/21/2024 Pressure injury of deep tissue of right heel (ICD-10 - L89.616) 01/23/2024 Other Armando Reeves MD confirm that Zak MCMAHON understands and adheres to the guidelines of the established clinical protocols in the office. I confirm the above care provided was rendered under my general supervision as initially planned and subsequently discussed and supervised by me. 02/05/2024 Other Armando Reeves MD confirm that SALINA Rivera understands and adheres to the guidelines of the established clinical protocols in the office. I confirm the above care provided was rendered under my general supervision as initially planned and subsequently discussed and supervised by me. 02/12/2024 Other Armando Reeves MD confirm that SALINA Rivera understands and adheres to the guidelines of the established clinical protocols in the office. I confirm the above care provided was rendered under my general supervision as initially planned and subsequently discussed and supervised by me. 02/19/2024 Other Armando Reeves MD confirm that SALINA Rivera understands and adheres to the guidelines of the established clinical protocols in the office. I confirm the above care provided was rendered under my general supervision as initially planned and subsequently discussed and supervised by me. 02/26/2024 Other Armando Reeves MD confirm that SALINA Rivera understands and adheres to the guidelines of the established clinical protocols in the office. I confirm the above care provided was rendered under my general supervision as initially planned and subsequently discussed and supervised by me. 04/01/2024 Other Armando Reeves MD confirm that DANTE Rivera-BC, understands and adheres to the guidelines of the established clinical protocols in the office. I confirm the above care provided was rendered under my general supervision as initially planned and subsequently discussed and supervised by me. 04/08/2024 Other Armando Reeves MD confirm that Ariela Victoria ANA understands and adheres to the guidelines of the established clinical protocols in the office. I confirm the above care provided was rendered under my general supervision as initially planned and subsequently discussed and supervised by me. 04/15/2024 Other Armando Reeves MD confirm that Marissa LEON EVELINEWILL, understands and adheres to the guidelines of the established clinical protocols in the office. I confirm the above care provided was rendered under my general supervision as initially planned and subsequently discussed and supervised by me. 04/22/2024 Other Armando Reeves MD confirm that SALINA Rivera, understands and adheres to the guidelines of the established clinical protocols in the office. I confirm the above care provided was rendered under my general supervision as initially planned and subsequently discussed and supervised by me. 05/06/2024 Other Armando Reeves MD confirm that SALINA Rivera, understands and adheres to the guidelines of the established clinical protocols in the office. I confirm the above care provided was rendered under my general supervision as initially planned and subsequently discussed and supervised by me. 05/20/2024 Other Armando Reeves MD confirm that Marissa LEON EVELINEWILL, understands and adheres to the guidelines of the established clinical protocols in the office. I confirm the above care provided was rendered under my general supervision as initially planned and subsequently discussed and supervised by me. 05/27/2024 Other Armando Reeves MD confirm that SALINA Rivera, understands and adheres to the guidelines of the established clinical protocols in the office. I confirm the above care provided was rendered under my general supervision as initially planned and subsequently discussed and supervised by me. 06/10/2024 Other Armando Reeves MD confirm that SALINA Rivera, understands and adheres to the guidelines of the established clinical protocols in the office. I confirm the above care provided was rendered under my general supervision as initially planned and subsequently discussed and supervised by me. 06/17/2024 Other Armando Reeves MD confirm that MarissaSALINA Chan, understands and adheres to the guidelines of the established clinical protocols in the office. I confirm the above care provided was rendered under my general supervision as initially planned and subsequently discussed and supervised by me. 06/24/2024 Other Armando Reeves MD confirm that Marissa Mcginnisett SALINA LEON, understands and adheres to the guidelines of the established clinical protocols in the office. I confirm the above care provided was rendered under my general supervision as initially planned and subsequently discussed and supervised by me. 07/01/2024 Other Armando Reeves MD confirm that Marissa Hang CAROLYN SALINA, understands and adheres to the guidelines of the established clinical protocols in the office. I confirm the above care provided was rendered under my general supervision as initially planned and subsequently discussed and supervised by me. 07/17/2024 Other Armando Reeves MD confirm that Marissa LEON SALINA, understands and adheres to the guidelines of the established clinical protocols in the office. I confirm the above care provided was rendered under my general supervision as initially planned and subsequently discussed and supervised by me. 07/25/2024 Other Armando Reeves MD confirm that Zak Manley [employer]IVER-C understands and adheres to the guidelines of the established clinical protocols in the office. I confirm the above care provided was rendered under my general supervision as initially planned and subsequently discussed and supervised by me. 07/31/2024 Other Armando Reeves MD confirm that Marissa LEON SALINA, understands and adheres to the guidelines of the established clinical protocols in the office. I confirm the above care provided was rendered under my general supervision as initially planned and subsequently discussed and supervised by me. 08/05/2024 Other Armando Reeves MD confirm that Marissa LEON SALINA, understands and adheres to the guidelines of the established clinical protocols in the office. I confirm the above care provided was rendered under my general supervision as initially planned and subsequently discussed and supervised by me. 08/13/2024 Other Armando Reeves MD confirm that SALINA Rivera understands and adheres to the guidelines of the established clinical protocols in the office. I confirm the above care provided was rendered under my general supervision as initially planned and subsequently discussed and supervised by me. 08/21/2024 Other Armando Reeves MD confirm that SALINA Rivera understands and adheres to the guidelines of the established clinical protocols in the office. I confirm the above care provided was rendered under my general supervision as initially planned and subsequently discussed and supervised by me. 08/26/2024 Other Armando Reeves MD confirm that SALINA Rivera understands and adheres to the guidelines of the established clinical protocols in the office. I confirm the above care provided was rendered under my general supervision as initially planned and subsequently discussed and supervised by me. 09/04/2024 Other Armando Reeves MD confirm that SALINA Rivera understands and adheres to the guidelines of the established clinical protocols in the office. I confirm the above care provided was rendered under my general supervision as initially planned and subsequently discussed and supervised by me. 09/11/2024 Other Armando Reeves MD confirm that SALINA Rivera understands and adheres to the guidelines of the established clinical protocols in the office. I confirm the above care provided was rendered under my general supervision as initially planned and subsequently discussed and supervised by me. 09/18/2024 Other Armando Reeves MD confirm that SLAINA Rivera understands and adheres to the guidelines of the established clinical protocols in the office. I confirm the above care provided was rendered under my general supervision as initially planned and subsequently discussed and supervised by me. Plan Of Treatment Next Appt Details Provider Name:Marissa Mauricio , 10/07/2024 10:00:00 AM, [address], [facility] [address], [place], [address], Insurance Providers Payer Name Payer Address Payer Phone Subscriber Number Group Number Insured Name Patient Relationship to Insured Coverage Start Date Coverage End Date [facility] [address] [place], [place] [id number] [place] Urena Self - patient is the insured 4 Medical (General) History Medical History History ICD Code Non-pressure chronic ulcer o f 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 without evidence of necrosis L97.825 Non-pressure chronic ulcer o f other part of left lower leg limited to breakdown of skin L97.821 Morbid (severe) obesity due to excess ca lories E66.01 Peripheral vascular disease, unspecified I73.9 Chronic venous hypertension (idiopathic) with ulcer and inflammation of left lower extremity I87.332 Lymphedema, not elsewhere classified I89 .0 Primary osteoarthritis, unspecified ankl e and foot M19.079 Restless legs syndrome G25.81 Other specified abnormalities of plasma proteins R77.8 Other disorders of electrolyte and fluid balance, not elsewhere classified E87.8 Hypo-osmolality and hyponatremia E87.1 Depression, unspecified F32.A Anemia, unspecified D64.9 Gastro-esophageal reflux disease without esophagitis K21.9
== END 2024-10-02 09:59 | disposition home or self-care (01) ==
LOC: HO.NEURO 09:58
PROVIDERS: PCP Internal Medicine
DX: R20.0 Anesthesia of skin (principal); R20.2 Paresthesia of skin
CPT/HCPCS: 95886; 95909

== ENCOUNTER → 2024-10-02 10:00 | Outpatient (BNV) | payer OTHER, SELFPAY | PROVIDERS: PCP Internal Medicine; Visit Provider Physical Medicine & Rehabilitation | DX: G56.02 Carpal tunnel syndrome, left upper limb (principal); G56.21 Lesion of ulnar nerve, right upper limb | CPT/HCPCS: 95886; 95909 ==

== ENCOUNTER 2024-12-12 09:20 | Outpatient (AMB) | payer OTHER, SELFPAY ==
--- OUTSIDE RECORDS SUMMARY | 2024-05-09 06:00 | XMS_ITS ---
Author Organization [facility] Address [address] [place] [address] Care Team Providers Care Superintendent [employer] Name Role Phone Suzi Santos MD Primary Care Provider Unavailabl Nas Jimenez Unavailable [phone] Encounters Encounter Location Date Provider Diagnosis [facility] [address] [place] [id number] 05/09/2024 Nas Maldonado Plan Of Treatment No Information Progress Notes * Mabel CHAPA LDOB: 2 (64 yo F)Acc No.[id number]:05/09/2024 Progress Note Patient: Mabel JULIEN Provider: Madiha Maldonado DPM :1960 A ge:63 Y S ex:Female Date:05/09/2024 Address:[address] [place], [place] [id number] Pcp:Suzi Santos MD Subjective: * Chief Complaints: * * Medical History: Objective: * Vitals: Assessment: Plan: * Treatment: * Images: * The named appointment provid er may or may not be the originator of this progress note, and it is not deemed complete until electronically signed by the appointment provider. Sign off status: Pending * Provider: Madiha Maldonado DPM Date: 0 05/09/2024 Generated for Jji edwar/Sheldon/Pageransmitting on: 0 12/12/2024 09:57 AM EDT
--- OUTSIDE RECORDS SUMMARY | 2024-05-16 10:15 | XMS_ITS ---
Author Organization [facility] Address [address] [place] [address] Care Team Providers Care Irrigation Engineer Name Role Phone Suzi Santos MD Primary Care Provider Unavailabl Nas Jimenez Unavailable [phone] Encounters Encounter Location Date Provider Diagnosis [facility] [address] [place] [phone] 05/16/2024 Nas Maldonado Plan Of Treatment No Information Progress Notes * Mabel CHAPA LDOB: [birth year] (64 yo F)Acc No.[id number]:05/16/2024 Progress Note Patient: Mabel JULIEN Provider: Madiha Maldonado DPM :1960 A ge:63 Y S ex:Female Date:05/16/2024 Address:[address] [place], [place] [phone] Pcp:Suzi Santos MD Subjective: * Chief Complaints: * * Medical History: Objective: * Vitals: Assessment: Plan: * Treatment: * Images: * The named appointment provid er may or may not be the originator of this progress note, and it is not deemed complete until electronically signed by the appointment provider. Sign off status: Pending * Provider: Madiha Maldonado DPM Date: 0 05/16/2024 Generated for Kusum vann/Sheldon/Pageransmitting on: 0 12/12/2024 09:58 AM EDT
--- OUTSIDE RECORDS SUMMARY | 2024-07-11 05:00 | XMS_ITS ---
Author Organization [facility] Address [address] [place] [address] Care Team Providers Care Assembly Worker Name Role Phone Suzi Santos MD Primary Care Provider Unavailabl Nas Jimenez Unavailable [phone] Encounters Encounter Location Date Provider Diagnosis [facility] [address] [place] [address] 07/11/2024 Nas Maldonado Plan Of Treatment No Information Progress Notes * Mabel CHAPA LDOB: 2 (64 yo F)Acc No.[id number]:07/11/2024 Progress Note Patient: Mabel JULIEN Provider: Madiha Maldonado DPM :1960 A ge:64 Y S ex:Female Date:07/11/2024 Address:[address] [place], [place] [address] Pcp:Suzi Santos MD Subjective: * Chief Complaints: * * Medical History: Objective: * Vitals: Assessment: Plan: * Treatment: * Images: * The named appointment provid er may or may not be the originator of this progress note, and it is not deemed complete until electronically signed by the appointment provider. Sign off status: Pending * Provider: Madiha Maldonado DPM Date: 0 07/11/2024 Generated for Kusum vann/Sheldon/Pageransmitting on: 0 12/12/2024 09:57 AM EDT
--- OUTSIDE RECORDS SUMMARY | 2024-07-17 06:30 | XMS_ITS ---
Author Organization [facility] Address [address] [place] [address] Care Team Providers Care Air Drill Operator Name Role Phone Suzi Santos MD Primary Care Provider Unavailabl Nas Jimenez Unavailable [phone] Encounters Encounter Location Date Provider Diagnosis [facility] [address] [place] [phone] 07/17/2024 Nas Maldonado Plan Of Treatment No Information Progress Notes * Mabel CHAPA LDOB: 2 (64 yo F)Acc No.[id number]:07/17/2024 Progress Note Patient: Mabel JULIEN Provider: Madiha Maldonado DPM :1960 A ge:64 Y S ex:Female Date:07/17/2024 Address:[address] [place], [place] [phone] Pcp:Suzi Santos MD Subjective: * Chief Complaints: * * Medical History: Objective: * Vitals: Assessment: Plan: * Treatment: * Images: * The named appointment provid er may or may not be the originator of this progress note, and it is not deemed complete until electronically signed by the appointment provider. Sign off status: Pending * Provider: Madiha Maldonado DPM Date: 0 07/17/2024 Generated for Kusum vann/Sheldon/Pageransmitting on: 0 12/12/2024 09:58 AM EDT
--- OUTSIDE RECORDS SUMMARY | 2024-10-09 11:30 | XMS_ITS ---
Author Organization [facility] Address [address] [place] [address] Care Team Providers Care Breaking Machine Operator Name Role Phone Suzi Santos MD Primary Care Provider Unavailabl Nas Jimenez Unavailable [phone] REASON FOR VISIT Pt SD Only Encounters Encounter Location Date Provider Diagnosis [facility] [address] [place] [phone] 10/09/2024 Nas Maldonado Plan Of Treatment No Information Progress Notes * Mabel CHAPA LDOB: 2 (64 yo F)Acc No.[id number]:10/09/2024 Progress Note Patient: Mabel JULIEN Provider: Madiha Maldonado DPM :1960 A ge:64 Y S ex:Female Date:10/09/2024 Address:[address] [place], [place] [id number] Pcp:Suzi Santos MD Subjective: * Chief Complaints: * 1 . Pt SD Only. * Medical History: Objective: * Vitals: Assessment: Plan: * Treatment: * Images: * The named appointment provid er may or may not be the originator of this progress note, and it is not deemed complete until electronically signed by the appointment provider. Sign off status: Pending * Provider: Madiha Maldonado DPM Date: 0 10/09/2024 Generated for Kusum vann/Sheldon/Zulmaitting on: 0 12/12/2024 09:58 AM EDT
--- OUTSIDE RECORDS SUMMARY | 2024-12-02 07:30 | XMS_ITS ---
Author Organization [facility] Address [address] [address] [place] [address] Care Team Providers Care Vineyard Supervisor Name Role Phone Yvonne MANUEL, Suzi Primary Care Provider Unavailab Marissa Lagos Unavailable [phone] Ramo MANUEL, Angelo Unavailable Unavailable Encounters Encounter Location Date Provider Diagnosis [facility] [address] [facility] [facility] [address] [place] [address] 12/02/2024 Marissa Mauricio Plan Of Treatment Next Appt Details Provider Name:Marissa Mauricio , 12/18/2024 11:00:00 AM, [address], [facility] [address], [place], [address], Progress Notes * Benigno CHAPAKevinB:1960 (64 yo F)Acc No.[id number]:12/02/2024 Follow-Up Visit Patient: Mabel JULIEN Provider: Love Mauricio NP :1960 A ge:64 Y S ex:Female Date:12/02/2024 Address:[address] [id number] Pcp:Suzi Russell MD Subjective: * Chief Complaints: * * Medical History: Objective: * Vitals: Assessment: Plan: * Treatment: * Billing Information: * Visit Code: * Procedure Codes: * Electronic signature of Carol Ann Mauricio NP on 12/12/2024 at 09:58 AM EDT Sign off status: Pending * Provider: Love Mauricio NP Date: 0 12/02/2024 Generated for Kusum vann/Sheldon/Mamie on: 0 12/12/2024 09:58 AM EDT
--- OUTSIDE RECORDS SUMMARY | 2024-12-11 07:00 | XMS_ITS ---
Author Organization [facility] Address [address] [address] Care Team Providers Care Care Taker Name Role Phone Yvonne MANUEL, Suzi Primary Care Provider Unavailab Marissa Lagos Unavailable [phone] Angelo Ralph MD Unavailable Unavailable Allergies Allergen (clinical drug ingredient) Drug/Non Drug Allergy documented on EMR Reaction Allergy Type Onset Date Status bupropion buPROPion HCl Unknown Drug Allergy Act andrew Wellbutrin Unknown Drug Allergy Active Adhesive Unknown Allergy Active Latex Latex Unknown Allergy Active meloxicam Meloxicam Unknown Drug Allergy Active Silicone Silicone Unknown Allergy Active tramadol Tramadol Unknown Drug Allergy Active REASON FOR VISIT Follow up wound care Medications Medication SIG (Take, Route, Frequency, Duration) Notes Start Date End Date Status Pramipexole Dihydrochloride 0.5 MG 1 tablet Orally Once a day; Duration: 30 day(s) 12/27/2023 Active Morphine Sulfate 30 MG 1 tablet as neede d Orally every 4 hrs 12/27/2023 Active oxyCODONE HCl 5 MG 1 tablet as needed Orally every 6 hrs 12/27/2023 Active Ondansetron 4 MG 1 tablet on the tong ue and allow to dissolve Orally every 8 hours PRN; Duration: 30 day(s) 01/08/2024 Active Goodys Extra Strength 520-260-32.5 MG 1 packet as needed Orally every 6 hrs 01/08/2024 Active DULoxetine HCl 30 MG 1 capsule Orally On ce a day; Duration: 30 day(s) 12/27/2023 Active Losartan Potassium 50 MG 1 tablet Orally Once a day; Duration: 30 day(s) 12/27/2023 Active Wegovy 1.7 MG/0.75ML 0.75 mL Subcutaneous Active Pregabalin 100 MG 1 capsule Orally Twi ce a day Active Celecoxib 200 MG 1 capsule as needed Orally Once a day Active Diflunisal - as directed 12/27/2023 Unkn own Levothyroxine Sodium 150 MCG 1 tablet in the morning on an empty stomach Orally Once a day; Duration: 30 day(s) 12/27/2023 Unknown Acetaminophen 325 MG 1 tablet as needed Orally every 6 hrs Unknown Ammonium Lactate 12 % 1 application Externally daily; Duration: 30 days apply to legs 11/25/2024 05/23/2025 Active 1st Medx-Patch/ Lidocaine 4-0.025-5-20 % as directed Externally 12/27/2023 Unk bubban Vital Signs Temperature 98.1 degrees Fahrenheit 12/12/19 25 Blood pressure systolic 130 mm Hg 12/12/19 25 Blood pressure diastolic 70 mm Hg 025 Heart Rate 88 /min 12/11/2024 Respiratory Rate 18 /min 12/11/2024 Height 62 in 12/11/2024 Weight 268 lbs 12/11/2024 BMI 49.01 kg/m2 12/11/2024 Oximetry 96 % 12/11/2024 Weight-kg 121.56 kg 12/11/2024 Encounters Encounter Location Date Provider Diagnosis 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 On exam, afebrile and cooperative with care. She reports she is working on dietary compliance, weight loss, walking with PT, and elevation of her BLE's. The dressing was removed and wound examined. Her lateral LLE wound continues to slowly improve with growing epithelial islands. I discussed the indication for debridement to remove devitalized tissue as well as the application of silver nitrate to the epibole and hypergranulated beds. I performed debridement to remove and break up devitalized tissue to her wound on LLE as detailed, applied silver nitrate to the thickened and rolled edges, and she tolerated the procedures well after an application of lidocaine. I cleaned the wound with wound cleanser and placed a Vashe soak to the wound. Nursing then applied skin prep to periwound and intact epithelial islands on LLE, Lac-Hydrin to circumferential intact skin, Ag alg to ulcer, OptiLock due to large drainage f.b ABD and Kerlix, tubi and butch wrap. We will request VNA perform dressing changes on Monday, Monday and Monday, applying skin prep to periwound and intact epithelial islands, Lac-Hydrin to intact skin, Ag alg, OptiLock, abd and Kerlix, cover with tubi and butch to LLE. I will review her vascular report once available, had vascular ultrasound 11/14, requested report again today. Continue elevation, compression, and weight loss as able. She will return for a follow-up visit in about one week and will call in the interim w any questions or concerns. Elevation and protein supplementation, low salt, appropriate dietary compliance with weight loss to aid in wound healing. Patient and nursing agree w plan of care. I, Marissa Mauricio MSN, [employer]- examined, evaluated and treated the patient. Dr. [...] and documenting the findings in the note. 12/11/2024 Lymphedema (ICD-10 - I89.0) 12/11/2024 Peripheral vascular disease (ICD-10 - I73.9) 12/11/2024 Morbid obesity (ICD-10 - E66.01) 12/11/2024 Pruritic dermatitis (ICD-10 - L30.8) Plan Of Treatment Treatment Notes Assessment Notes Chronic venous hypertension (idiopathic) with ulcer and inflammation of left lower extremity Mabel presents today for a follow-up visit for treatment of left lower extremity chronic venous ulcer. On exam, afebrile and cooperative with care. She reports she is working on dietary compliance, weight loss, walking with PT, and elevation of her BLE's. The dressing was removed and wound examined. Her lateral LLE wound continues to slowly improve with growing epithelial islands. I discussed the indication for debridement to remove devitalized tissue as well as the application of silver nitrate to the epibole and hypergranulated beds. I performed debridement to remove and break up devitalized tissue to her wound on LLE as detailed, applied silver nitrate to the thickened and rolled edges, and she tolerated the procedures well after an application of lidocaine. I cleaned the wound with wound cleanser and placed a Vashe soak to the wound. Nursing then applied skin prep to periwound and intact epithelial islands on LLE, Lac-Hydrin to circumferential intact skin, Ag alg to ulcer, OptiLock due to large drainage f.b ABD and Kerlix, tubi and butch wrap. We will request VNA perform dressing changes on Monday, Monday and Monday, applying skin prep to periwound and intact epithelial islands, Lac-Hydrin to intact skin, Ag alg, OptiLock, abd and Kerlix, cover with tubi and butch to LLE. I will review her vascular report once available, had vascular ultrasound 11/14, requested report again today. Continue elevation, compression, and weight loss as able. She will return for a follow-up visit in about one week and will call in the interim w any questions or concerns. Elevation and protein supplementation, low salt, appropriate dietary compliance with weight loss to aid in wound healing. Patient and nursing agree w plan of care. I, Marissa Mauricio MSN, [employer]- examined, evaluated and treated the patient. Dr. [...] and documenting the findings in the note. Next Appt Details Follow Up: 1 Week, Reason: Provider Name:Marissa Mauricio , 12/18/2024 11:00:00 AM, [address] [facility] [address], [place], [address], Progress Notes * Benigno CHAPAaDOB:1960 (64 yo F)Acc No.[id number]:12/11/2024 Follow-Up Visit Patient: Mabel JULIEN Provider: Love Mauricio NP :1960 A ge:64 Y S ex:Female Date:12/11/2024 Address: [address], [facility] Pcp:Suzi Russell MD Subjective: * Chief Complaints: * F ollow up wound care * HPI: U lcer: Mabel returns today for a follow up for left leg venous ulcer. She has VNA performing dressing changes three times weekly, cleaning with Vashe and applying Aquacel ag. She is using tubigrip with butch wrap for compression. S he occasionally elevates her legs.?ABIs 06/17/24 reflects a R index of 0.84, TBI of 0.45, L of 0.90 and TBI of 0.46. She had vascular ultrasounds on 11/14. I have requested the report again today and will review once available. She denies pain to the wound site and is pleased with her healing status. She underwent staged venous ablation procedures 04/11 and 04/12 and had a follow up 04/14. On 04/14, however, the repeat ultrasound showed negative DVT but vessels that remain occluded from GSV, SSV and AAGSV proximal to mid calf, proximal thigh to distal thigh. S he previously used l ymphedema pumps but felt that it worsened her wounds therefore she stopped utilizing the machine. She recently received the Koya lymphedema pumps but has not been using them. * ROS: G eneral / Constitutional: Patient denies c hange in appetite, fever, weakness. ? R espiratory: Patient denies c hronic cough, shortness of breath, sputum production. C ardiovascular: Patient denies c hest pain. H ematology: Patient denies e asy bleeding, easy bruising, recent transfusion. M usculoskeletal: Comments u ses walker for ambulation. W eakness a dmits. P eripheral Vascular: Ulceration of feet l eft leg ulcer. S kin: Ulcerations a dmits. * Medical History: * Medications: T akingCelecoxib 200 MG Capsule 1 capsule as needed Orally Once a day Wegovy 1.7 MG/0.75ML Solution Auto-injector 0.75 mL Subcutaneous Pregabalin 100 MG Capsule 1 capsule Orally Twice a day DULoxetine HCl 30 MG Capsule Delayed Release Particles 1 capsule Orally Once a day Losartan Potassium 50 MG Tablet 1 tablet Orally Once a day Morphine Sulfate 30 MG Tablet 1 tablet as needed Orally every 4 hrs oxyCODONE HCl 5 MG Tablet 1 tablet as needed Orally every 6 hrs Pramipexole Dihydrochloride 0.5 MG Tablet 1 tablet Orally Once a day Ondansetron 4 MG Tablet Disintegrating 1 tablet on the tongue and allow to dissolve Orally every 8 hours PRN Goodys Extra Strength 520-260-32.5 MG Packet 1 packet as needed Orally every 6 hrs Ammonium Lactate 12 % Lotion 1 application Externally daily apply to legs, stop date 05/23/2025Taking Celecoxib 200 MG Capsule 1 capsule as needed Orally Once a day Taking Wegovy 1.7 MG/0.75ML Solution Auto-injector 0.75 mL Subcutaneous Taking Pregabalin 100 MG Capsule 1 capsule Orally Twice a day Taking DULoxetine HCl 30 MG Capsule Delayed Release Particles 1 capsule Orally Once a day Taking Losartan Potassium 50 MG Tablet 1 tablet Orally Once a day Taking Morphine Sulfate 30 MG Tablet 1 tablet as needed Orally every 4 hrs Taking oxyCODONE HCl 5 MG Tablet 1 tablet as needed Orally every 6 hrs Taking Pramipexole Dihydrochloride 0.5 MG Tablet 1 tablet Orally Once a day Taking Ondansetron 4 MG Tablet Disintegrating 1 tablet on the tongue and allow to dissolve Orally every 8 hours PRN Taking Goodys Extra Strength 520-260-32.5 MG Packet 1 packet as needed Orally every 6 hrs Taking Ammonium Lactate 12 % Lotion 1 application Externally daily apply to legs, stop date 05/23/[id number] Medx-Patch/ Lidocaine 4-0.025-5-20 % Patch as directed Externally Levothyroxine Sodium 150 MCG Tablet 1 tablet in the morning on an empty stomach Orally Once a day Acetaminophen 325 MG Tablet 1 tablet as needed Orally every 6 hrs Diflunisal - Powder as directed Medication List reviewed and reconciled with the patientUnknown 1st Medx-Patch/ Lidocaine 4-0.025-5-20 % Patch as directed Externally Unknown Levothyroxine Sodium 150 MCG Tablet 1 tablet in the morning on an empty stomach Orally Once a day Unknown Acetaminophen 325 MG Tablet 1 tablet as needed Orally every 6 hrs Unknown Diflunisal - Powder as directed Medication List reviewed and reconciled with the patient * Allergies: A dhesivebuPROPion HClLatexTramadolWellbutrinSiliconeMeloxicamno[Allergies Verified] Objective: * Vitals: B P:130/70mm Hg, HR:88/min, RR:18/min, Temp:98.1F, Oxygen sat %:96%, Wt:268lbs, Wt-k.56 kg, Ht:62in, BMI:49.01Index, Pain scale:01-10, Body Surface Area: 2.3. * Examination: W ound Assessment: Wound Number: # 10. Wound Encounter: S ubsequent. Wound Location: L eft, Lateral - Lower Exremity. Wound Type: V enous. Wound Pre-Measurement: 8 .2cm length x 16.8cm width x 0.1cm depth cluster of multiple. Wound Tunneling/Undermining: N one. Wound Status: I mproved. Wound Thickness: F ull. Wound Exudate Amount: L arge. Wound Exudate Type: S erosanguinous. Wound Odor: N one. Wound Margin: W ell Defined, Thickened / Rolled Under. Wound Base: G ranulation, Slough, Epithelial, Hyper-Gran.? Wound - Periwound: N ormal. Pain Level: 0 /10. Debridement Type: S urgical. Debridement Time-Out Taken: Y es. Debridement Pain Control: 4 % Lidocaine. Debridement Level: S kin / Subcutaneous Tissue. Post Debridement Measurements: 8 .3x17x0.2. Wound Area: 7 0 sq cm debrided (50%). Tissues and other material debrided: A dipose, Dermis, Epidermis, Subcutaneous, Hypergranulation. Devitalized tissue debrided: B iofilm, Callus, Exudate, Slough. Instrument: C michaele. Bleeding: , Minimal. Hemostasis Achieved: P ressure, Silver Nitrate. Procedural Pain: 0 /10. Post Procedural Pain: 0 /10. Response to Treatment: P rocedure was tolerated well. Notes s ilver nitrate used to hypergranulated tissue. ? G eneral Examination: General appearance: A ppears neat and clean, pleasant, well-nourished and in no acute distress. Ears: N o apparent hearing loss. Skin: S ee detailed wound assessment for + LLE ulceration.? Lungs: N o supplemental 02. Abdomen: o bese. Musculoskeletal: U ses a RW. Extremities: + 2 edema to RLE, + 3 edema to LLE. Neurologic: a lert and oriented. Psych: A ppropriate affect. C linician: Amira Sanches RN Pt is here for a follow up visit. Wound improving Education completed on wound status and treatment. Patient expressed understanding. Treatment Orders as Follows: Left Lower Extremity: Cleanse with: Vashe soak for 10-15 mins or as tolerated then Normal Saline Periwound: lachydrin with skin prep to immediate periwound Primary dressing: Calcium Alginate with Silver 4x5 (1) Secondary dressing: gauze, 4x4, Optilock, ABD 5x9 (2), Kerlix 4 (1) Secure with: Paper Tape Compression: Tubigrip G - Latex Free, Butch 6 inch Dressing Change Frequency: 3x /week VNA Frequency: 2x / week Follow Up: 1 Week. L ower Extremity Assessment: Left Extremity e luis. Left Extremity - Compression Device In Use Y es. Left Extremity - Device Used Correctly N o. Left Extremity - Device In Use T ubiGrip G Latex Free and Butch 6 inch. Assessment: * Assessment: 1. C hronic venous hypertension (idiopathic) with ulcer and inflammation of left lower extremity - I87.332 (Primary) 2 . N on-pressure chronic ulcer of 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 without evidence of necrosis - L97.825 3 . L ymphedema - I89.0 4 . P eripheral vascular disease - I73.9 5 . M orbid obesity - E66.01 6 . P ruritic dermatitis - L30.8 Plan: * Treatment: * Procedure Codes: 1 1042 DEBRIDE SKIN/[id number] PEDRO SUBQ TISSUE ADD-ON * Follow Up: 1 Week * Billing Information: * Visit Code: * Procedure Codes: 57273 DEBRIDE SKIN/TISSUE. 98591 PEDRO SUBQ TISSUE ADD-ON. * Sign off status: Completed true * Provider: Love Mauricio NP Date: 0 12/11/2024 Generated for Printi ng/Faxing/eTransmitting on: 0 12/12/2024 09:57 AM EDT History and Physical Notes * Examination Category Sub-Category Detail Notes Category Not es General Examination General appearance: Appears neat and clean, pleasant, well-nourished and in no acute distress Ears: No apparent hearing loss Lungs: No supplemental 02 Abdomen: obese Neurologic: alert and oriented Skin: See detailed wound a ssessment for + LLE ulceration Extremities: +2 edema to RLE, + 3 edema to LLE Musculoskeletal: Uses a RW Psych: Appropriate affect Wound Assessment Wound Number: #10 Wound Encounter: Subsequent Wound Location: Left, Lateral - Lowe r Exremity Wound Type: Venous Wound Pre-Measurement: 8.2cm length x 16 .8cm width x 0.1cm depth cluster of multiple Wound Tunneling/Undermining: None Wound Status: Improved Wound Thickness: Full Wound Exudate Amount: Large Wound Exudate Type: Serosanguinous Wound Odor: None Wound Margin: Well Defined, Thicke jona / Rolled Under Wound Base: Granulation, Slough, Epithelial, Hyper-Gran Wound - Periwound: Normal Pain Level: 0/10 Debridement Type: Surgical Debridement Time-Out Taken: Yes Debridement Pain Control: 4% Lidocaine Debridement Level: Skin / Subcutaneous Tissue Post Debridement Measurements: 8.3x17x0. 2 Tissues and other material debrided: Peter pose, Dermis, Epidermis, Subcutaneous, Hypergranulation Devitalized tissue debrided: Biofilm, Ca llus, Exudate, Slough Instrument: Curette Bleeding: , Minimal Hemostasis Achieved: Pressure, Silver Ni trate Procedural Pain: 0/10 Post Procedural Pain: 0/10 Response to Treatment: Procedure was uyen erated well Notes silver nitrate used to hypergranulated tissue Wound Area: 70 sq cm debrided (5 0%) Lower Extremity Assessment Left Extremity edema Left Extremity - Compression Device In U se Yes Left Extremity - Device Used Correctly N o Left Extremity - Device In Use TubiGrip G Latex Free and Butch 6 inch Clinician Amira Sanches RN Pt is here f or a follow up visit. Wound improving Education completed on wound status and treatment. Patient expressed understanding. Treatment Orders as Follows: Left Lower Extremity: Cleanse with: Vashe soak for 10-15 mins or as tolerated then Normal Saline Periwound: lachydrin with skin prep to immediate periwound Primary dressing: Calcium Alginate with Silver 4x5 (1) Secondary dressing: gauze, 4x4, Optilock, ABD 5x9 (2), Kerlix 4 (1) Secure with: Paper Tape Compression: Tubigrip G - Latex Free, Butch 6 inch Dressing Change Frequency: 3x /week VNA Frequency: 2x / week Follow Up: 1 Week
--- NOTE | 2024-12-12 09:26 | A.OFFPC_ITS ---
Vital Signs 12/12/24 09:34 Height 5 ft 2 in Weight 280 lb BMI 51.2 BP 134/72 Blood Pressure Location Rt radial Position Sitting Pulse 85 Pulse Source Pulse Oximeter Temp 97.2 F Temp Source Temporal Artery Scan Pulse Oximetry (%) 95 Oxygen Delivery Method Room Air Intake Visit Reasons: Rescheduled/follow up 1/2 hour Intake Note: Mabel presents in the office today for a follow up. Allergies bupropion Allergy (Unknown, Verified 12/12/24 09:31) Blister latex Allergy (Unknown, Verified 12/12/24 09:31) Rash silicone Allergy (Unknown, Verified 12/12/24 09:31) Rash tramadol Allergy (Unknown, Verified 12/12/24 09:31) feels unwell meloxicam Allergy (Verified 12/12/24 09:31) Blister adhesive bandaid Allergy (Unknown, Uncoded 12/12/24 09:31) Rash Medication List - Last Reconciled 12/12/24 by Suzi Narayan MD [id number] [id number] mg ([employer]'s Extra Strength) 1 packet PO QID PRN duloxetine 30 mg PO BID furosemide 20 mg PO DAILY PRN losartan 25 mg PO DAILY meclizine 25 mg PO BID PRN mirabegron ER (Myrbetriq) 25 mg PO DAILY morphine ER 30 mg PO BID 30 days ondansetron 4 mg PO Q8H PRN oxycodone 5 mg PO Q8H PRN 28 days pramipexole 0.5 mg PO TID pregabalin (Lyrica) 100 mg PO TID sertraline 25 mg PO DAILY triamcinolone acetonide 0.1% 1 appl topical DAILY 90 days Wegovy (semaglutide (weight loss)) 2.4 mg (0.75 mL) subcut QWEEK NS Tobacco use date assessed: 12/12/24 Dental Screening Dental Screen Date: 12/12/24 Did you have a dental visit in the last 12 months?: No Did you have a dental problem in the last 6 months where you did not have access to dental care?: No Was dental information given to patient?: Patient declined HPI HPI Comments History of Present Illness Details 64 year old female with a past medical h istory of depression, anxiety, GERD, LE edema, PVD, low back pain, sciatica presenting for follow up CV: stable on current medications. continues GLP to aid weight loss though she has held this numerous times due to nausea. She does have zofran to use prn but has not been using. Chronic pain: Low back, sciatica, chronic wounds, knee pain. stable on meds- morphine ER, oxycodone. Morphine was increased from 30 BID to 20x2 BID but is having trouble getting the latter so essentially reverted back to previous dosing. Compression fractures noted at L4-L5. Mulitilevel DDD. knee pain -needs replacement but wont perform without weight loss. Leg ulcer-left leg chronic. Follows with [facility] wound. Follows with vascular and Dr Ocasio and the wound center. stable lower extremity swelling-back on lasix. RLS on pramiprexole. Wound care and nursing have recommended admittance to short term rehab so she could stay off her feet and improve wound healing Thyroid nodules: u/s stable BH: stable on duloxetine, lyrica. Mom is living in [place] alone. Oldest of five sibling, four of whom don't speak with her. Sees a therapist. [facility] is following. Getting more support from her . Patient reports worsening stress and urge incontinence. Tells me that many years ago was recommended to have sling procedure. She has not been to gynecology in years. Had hysterectomy Mammo 12/2022 Anemia on labs. She had cologuard 2022 -neg. She has an appointment with gastroenterology scheduled for December. She has been fairly fatigued. Denies shortness of breath ROS see HPI PHYSICAL EXAM: GENERAL: Alert and oriented x 3. NAD EYES: EOMI. Anicteric. HENT: Moist mucous membranes. No scleral icterus. No cervical lymphadenopathy. LUNGS: Clear to auscultation bilaterally. CARDIOVASCULAR: Regular rate and rhythm. No murmur. No JVD. ABDOMEN: Soft, non-tender +bs EXTREMITIES: bialteral edema. Non-tender. SKIN: Warm. LLE wound is wrapped NEUROLOGIC: No focal neurological deficits. CN II-XII grossly intact PSYCHIATRIC: Cooperative. Appropriate mood and affect [facility] Medical History (Updated 12/12/24 @ 11:21 by Suzi Narayan MD) Depression Tubular adenoma of colon Severe obesity Restless legs Osteoarthritis Obesity Multiple thyroid nodules Hyponatremia Hypochloremia H/O gastroesophageal reflux (GERD) Elevated troponin COVID-19 Anemia Surgical History (Updated 12/12/24 @ 09:38 by RANDI Mcgovern) History of cholecystectomy Hx of laparoscopic gastric banding H/O gastric bypass H/O tubal ligation H/O: hysterectomy Family History Mother Heart disease Osteoporosis Father Prostate cancer Social History (Updated 12/12/24 @ 09:34 by Zena Sheth MA) Housing: House Alcohol intake: current Patient Tobacco Use Status: Never used Tobacco e-Cigarette/Vaping Use: Never Used Second Hand Smoke Exposure: No service: No Current occupational status: disabled Cognitive needs: No Hearing needs: No Vision needs: Yes (glasses) Questionnaire Thrive Questionnaire Date Thrive assessed: 04/30/24 ALEX-7 AMB Questionnaire ALEX-7 Date ALEX - 7 assessed: 04/30/24 Source: Developed by Drs. Stoney Madrid, Niya Crowley, Leonard Carrington and colleagues, with an educational urvashi from [employer] Physical exam (Primary Care) Vital Signs: Last Vital Signs Temp 97.2 F 12/12/24 09:34 Pulse 85 12/12/24 09:34 BP 134/72 12/12/24 09:34 Pulse Ox 95 12/12/24 09:34 Oxygen Delivery Method Room Air 12/12/24 09:34 BMI result Body Mass Index 51.2 Tobacco/Smoking Status: Tobacco use Status Tobacco use date assessed 12/12/24 12/12/24 09:39 Patient Tobacco Use Status Never used Tobacco 12/12/24 09:34 e-Cigarette/Vaping Use Never Used 12/12/24 09:34 Thrive Assessment: Date of Thrive Assessment Date Thrive assessed 04/30/24 12/12/24 09:26 Coding Level of Care Code Est Pt Level 4 (84761) Diagnoses Urge incontinence N39.41 Anemia, unspecified type D64.9 Anemia type: unspecified type Degeneration of intervertebral disc of lumbar region with discogenic back pain and lower extremity pain M51.362 Disc-related pain type: discogenic back pain and lower extremity pain Chronic pain syndrome G89.4 Chronic pain type: chronic pain syndrome Assessment & Plan Assessment & Plan (1) Urge incontinence: Code(s): N39.41 - Urge incontinence Category: Medical (2) Anemia: Code(s): D64.9 - Anemia, unspecified Category: Medical Qualifiers: Anemia type: unspecified type Qualified Code(s): D64.9 - Anemia, unspecified (3) Lumbar degenerative disc disease: Code(s): M51.369 - Other intervertebral disc degeneration, lumbar region without mention of lumbar back pain or lower extremity pain Category: Medical Qualifiers: Disc-related pain type: discogenic back pain and lower extremity pain Qualified Code(s): M51.362 - Other intervertebral disc degeneration, lumbar region with discogenic back pain and lower extremity pain (4) Chronic pain: Code(s): G89.29 - Other chronic pain Category: Medical Qualifiers: Chronic pain type: chronic pain syndrome Qualified Code(s): G89.4 - Chronic pain syndrome Plan 64 year old for follow up Chronic pain-fairly stable. Increased knee pain Anemia-increased fatigue. recheck labs. upcoming gi consult UI-referral urogynecology Orders: Referrals Urogynecology Referral N39.41 - Urge incontinence Medications: New mirabegron ER (Myrbetriq) 25 mg PO DAILY 90 tabs 1RF Changed From furosemide 20 mg PO DAILY 90 tabs 3RF To furosemide 20 mg PO DAILY PRN
[2024-12-12 09:34] VITALS: BP 134/72; PULSE 85; TEMP 36.2; O2SAT 95; BMI 51.2
--- OUTSIDE RECORDS SUMMARY | 2024-12-12 09:57 | XMS_ITS | Patient Health Record ---
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 Name Role Phone Suzi Santos MD Primary Care Provider Nas Mota Unavailable [phone] Allergies Allergen (clinical drug ingredient) Drug/Non Drug [...] On ce a day; Duration: 30 day(s) Active Ibuprofen 200 MG 3 tablets with food or milk as needed Orally every 6 hrs; Duration: 5 days Not-Taking Gabapentin 300 MG 1 capsule Orally Onc e a day; Duration: 30 day(s) Active Neurontin 300 MG 1 capsule Orally Thr ee times a day; Duration: 5 days Not-Taking Losartan Potassium 25 MG Oral; Duration: 90 Days Active Ammonium Lactate 12 % APPLY 1 APPLICATIO N EXTERNALLY TWICE A DAY 30 DAYS NOT COVD; Duration: 30 Active Diflunisal 500 MG 1 tablet with food o r milk Orally Twice a day; Duration: 30 day(s) Not-Taking Pramipexole Dihydrochloride Active Multivitamin Not-Balbir ing Naproxen Not-Taking Vitamin D Not-Taking Furosemide Active Extra Strength Acetaminophen 500 MG 2 capsules as needed Orally every 6 hrs; Duration: 5 days Not-Taking Morphine Sulfate 30 MG 1 tablet as neede d Orally every 12 hrs Active Walking Boot/Pneumatic As directed Wear Daily; Duration: Until further notice Not-Taking Social History Tobacco use other than smoking: Question Answer Notes Are you an other tobacco user? No Problems Problem Type SNOMED Code ICD Code Onset Dates Problem Status W/U Status Risk Notes Problem Plantar wart (20184239) Plantar wart (B07.0) Active confirmed Problem Bilateral atherosclerosis of arteries of lower limbs (disorder) ([id number] ) Atherosclerosis of [place] artery of both lower extremities, with unspecified presence of clinical manifestation (I70.203) Active confirmed Encounters Encounter Location Date Provider Diagnosis [facility] [phone] [facility] [address] [phone] 05/09/2024 [facility] [address] [place] [id number] [facility] [address] [address] [facility]/15/2024 Nas Maldonado Plan Of Treatment Pending Test Test Name Order Date [id number] NAIL, 6 OR MORE 07/17/2023 [id number] NAIL, 6 OR MORE 11/08/2023 [id number] Destruction, 1-14 11/08/2023 [id number] Destruction, 1-14 07/17/2023 [id number] Destruction, 1-14 01/24/2022 [id number]-Pzlw Destruction, 1-14 10/05/2023 [id number]-DWMU SKIN LESIONS, OVER 4 01/25/20 22 [id number]-FMBM SKIN LESIONS, OVER 4 11/08/19 24 [id number]-JMOU SKIN LESIONS, OVER 4 07/17/19 24 [id number]-Sikbxhzaw, Toes 07/17/2023 98596 - Tenotomy, open flexor 10/05/2023 Insurance Providers Payer Name Payer Address Payer Phone Subscriber Number Group Number Insured Name Patient Relationship to Insured Coverage Start Date Coverage End Date [facility] [address] [place] [address] [id number] Mabel Urena Self - patient is the insured Medical (General) History Medical History History ICD Code Chicken pox Depression Measles Mumps Poor circulation - vein Thyroid disorder Restless leg Arthritis Surgical History Surgery Date(Month/Year) hysterectomy 2009 gall bladder 2006 hammer toe 05/24/2017 vein surgery, leg 04/2023 Hospitalization History Reason Date(Month/Year) [facility] 05/24/17
--- OUTSIDE RECORDS SUMMARY | 2024-12-12 09:57 | XMS_ITS | Clinical Summary ---
Author Organization [facility] Facility Address [address] [place] [id number] Care Team Providers Care Bankruptcy Legal Assistant Name Role Phone Unavailable Primary Care Provider [...] 2010 Pneumococcal Vaccine: 50+ Ye ars (1 of 1 - PCV) 2011 Influenza Vaccine (#1) 2024 Hepatitis B Vaccine Aged Out No longe r eligible based on patient's age to complete this topic Insurance [facility]
--- OUTSIDE RECORDS SUMMARY | 2024-12-12 09:58 | XMS_ITS | Patient Health Record ---
Author Organization [facility] Address [address] [address] Care Team Providers Care Filters Assembler Name Role Phone Yvonne MANUEL, Suzi Primary Care Provider Unavailab Marissa Lagos Unavailable [phone] Ramo MANUEL, Angelo Unavailable Unavailable Zak Manley Unavailable [phone] Ariela Victoria Unavailable [phone] Allergies Allergen (clinical drug ingredient) Drug/Non Drug [...] Duration) Notes Start Date End Date Status Wegovy 1.7 MG/0.75ML 0.75 mL Subcutaneous Active Levothyroxine Sodium 150 MCG 1 tablet in the morning on an empty stomach Orally Once a day; Duration: 30 day(s) 12/27/2023 Unknown Pregabalin 100 MG 1 capsule Orally Twi ce a day Active Acetaminophen 325 MG 1 tablet as needed Orally every 6 hrs Unknown Ammonium Lactate 12 % 1 application Externally daily; Duration: 30 days apply to legs 11/25/2024 05/23/2025 Active Celecoxib 200 MG 1 capsule as needed Orally Once a day Active 1st Medx-Patch/ Lidocaine 4-0.025-5-20 % as directed Externally 12/27/2023 Unk nown Ondansetron 4 MG 1 tablet on the tong ue and allow to dissolve Orally every 8 hours PRN; Duration: 30 day(s) 01/08/2024 Active Goodys Extra Strength 520-260-32.5 MG 1 packet as needed Orally every 6 hrs 01/08/2024 Active Pramipexole Dihydrochloride 0.5 MG 1 tablet Orally Once a day; Duration: 30 day(s) 12/27/2023 Active Morphine Sulfate 30 MG 1 tablet as neede d Orally every 4 hrs 12/27/2023 Active oxyCODONE HCl 5 MG 1 tablet as needed Orally every 6 hrs 12/27/2023 Active DULoxetine HCl 30 MG 1 capsule Orally On ce a day; Duration: 30 day(s) 12/27/2023 Active Diflunisal - as directed 12/27/2023 Unkn own Losartan Potassium 50 MG 1 tablet Orally Once a day; Duration: 30 day(s) 12/27/2023 Active Problems Problem Type SNOMED Code ICD Code Onset Dates Problem Status W/U Status Risk Notes Problem Morbid obesity (disorder) (737617967) Morbid (severe) obesity due to excess calories (E66.01) Active confirmed Problem Restless legs syndrome (92315250) Restless legs syndrome (G25.81) Active confirmed Problem Peripheral vascular disease (292059136) Peripheral vascular disease, unspecified (I73.9) Active confirmed Problem Stasis dermatitis co-occurrent with venous ulcer of left lower extremity due to chronic peripheral venous hypertension (disorder) (747065002256245) Chronic venous hypertension (idiopathic) with ulcer and inflammation of left lower extremity (I87.332) Active confirmed Problem Lymphedema (048549057) Lymphedema, not elsewhere classified (I89.0) Active confirmed Problem Gastro-esophageal reflux disease without esophagitis (151991797) Gastro-esophagea l reflux disease without esophagitis (K21.9) Active confirmed Problem Chronic ulcer of skin of lower leg (disorder) (80829267068034753 ) Non-pressure chronic ulcer of other part of left lower leg limited to breakdown of skin (L97.821) Active confirmed Problem Localized, primary osteoarthritis of the ankle and/or foot (158205462) Primary osteoarthritis, unspecified ankle and foot (M19.079) Active confirmed Problem 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 (L97.825) Active confirmed Problem Peripheral vascular disease (751593339) Peripheral vascular disease (I73.9) Active confirmed Problem Morbid obesity (496381024) Morbid obesity (E66.01) Active confirmed Problem Lymphedema (53175462) Lymphedema (I89.0) Active confirmed Problem Deep tissue pressure injury of right heel (disorder) (83242598197506122 6) Pressure injury of deep tissue of right heel (L89.616) Active confirmed Problem Cellulitis of left lower leg (08709633581769) Cellulitis of left lower leg (L03.116) Active confirmed Vital Signs Heart Rate 88 /min 12/11/2024 Temperature 98.1 degrees Fahrenheit 12/11/2024 Respiratory Rate 18 /min 12/11/2024 Oximetry 96 % 12/11/2024 Blood pressure diastolic 70 mm Hg 12/11/2024 Weight-kg 121.56 kg 12/11/2024 Height 62 in 12/11/2024 Blood pressure systolic 130 mm Hg 12/11/2024 Weight 268 lbs 12/11/2024 BMI 49.01 kg/m2 12/11/2024 Encounters Encounter Location Date Provider Diagnosis [facility] [address] [address] 01/01/2024 Anzhela Savonina Lymphedema I89.0 ; Morbid obesity E66.01 ; Peripheral vascular disease I73.9 ; 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 L97.825 and Chronic venous hypertension (idiopathic) with ulcer and inflammation of left lower extremity I87.332 [facility] [address] [address] 01/08/2024 Marissa Mauricio Chronic venous hypertension (idiopathic) with [...] L97.821 and Lymphedema, not elsewhere classified I89.0 [facility] [address] 01/23/2024 Zak Manley Chronic venous hypertension (idiopathic) [...] L97.821 and Lymphedema, not elsewhere classified I89.0 [facility] [address] [address] 01/29/2024 Marissa Mauricio Chronic venous hypertension (idiopathic) [...] not elsewhere classified I89.0 and Dermatitis L30.9 [facility] [address] [address] 02/05/2024 Marissa Mauricio Chronic venous hypertension (idiopathic) [...] not elsewhere classified I89.0 and Dermatitis L30.9 [facility] [address] [address] 02/12/2024 Marissa Mauricio Chronic venous hypertension (idiopathic) [...] not elsewhere classified I89.0 and Dermatitis L30.9 [facility] [address] [address] 02/19/2024 Marissa Mauricio Chronic venous hypertension (idiopathic) [...] not elsewhere classified I89.0 and Dermatitis L30.9 [facility] [address] [address] 02/26/2024 Marissa Mauricio Chronic venous hypertension (idiopathic) [...] not elsewhere classified I89.0 and Dermatitis L30.9 [facility] [address] [address] 03/04/2024 Marissa Mauricio Chronic venous hypertension (idiopathic) [...] not elsewhere classified I89.0 and Dermatitis L30.9 [facility] [address] [address] 03/11/2024 Marissa Mauricio Chronic venous hypertension (idiopathic) [...] not elsewhere classified I89.0 and Dermatitis L30.9 [facility] [place] [address] [address] 03/18/2024 Marissa Mauricio Chronic venous hypertension (idiopathic) [...] not elsewhere classified I89.0 and Dermatitis L30.9 [facility] [place] [address] [address] 03/26/2024 Anzhela Savonina Lymphedema I89.0 ; Chronic venous hypertension (idiopathic) with ulcer and inflammation of left lower extremity I87.332 ; Morbid obesity E66.01 ; Peripheral vascular disease I73.9 and 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 L97.[address] [facility] [address] [address] 04/01/2024 Marissa Mauricio Lymphedema I89.0 ; Chronic venous hypertension (idiopathic) with ulcer and inflammation of left lower extremity I87.332 ; Morbid obesity E66.01 ; Peripheral vascular disease I73.9 and 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 L97.825 [facility] [place] [address] [address] 04/08/2024 Jooyun Victoria Lymphedema I89.0 ; Chronic venous hypertension (idiopathic) with ulcer and inflammation of left lower extremity I87.332 ; Morbid obesity E66.01 ; Peripheral vascular disease I73.9 and 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 L97.825 [facility] [address] 04/15/2024 Marissaerasto Mcginnisett Lymphedema I89.0 ; Chronic venous hypertension (idiopathic) with ulcer and inflammation of left lower extremity I87.332 ; Morbid obesity E66.01 ; Peripheral vascular disease I73.9 and 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 L97.825 [facility] [address] 04/22/2024 Marissa Volga Lymphedema I89.0 ; Chronic venous hypertension (idiopathic) with ulcer and inflammation of left lower extremity I87.332 ; Morbid obesity E66.01 ; Peripheral vascular disease I73.9 and 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 L97.825 [facility] [address] 05/06/2024 Marissa Mcginnisett Lymphedema I89.0 ; Chronic venous hypertension (idiopathic) with ulcer and inflammation of left lower extremity I87.332 ; Morbid obesity E66.01 ; Peripheral vascular disease I73.9 and 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 L97.825 [facility] [address] 05/13/2024 Marissa Mcginnisett Lymphedema I89.0 ; Chronic venous hypertension (idiopathic) with ulcer and inflammation of left lower extremity I87.332 ; Morbid obesity E66.01 ; Peripheral vascular disease I73.9 and 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 L97.825 [facility] [address] 05/20/2024 Marissa Volga Lymphedema I89.0 ; Chronic venous hypertension (idiopathic) with ulcer and inflammation of left lower extremity I87.332 ; Morbid obesity E66.01 ; Peripheral vascular disease I73.9 and 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 L97.825 [facility] [address] [address] 05/27/2024 Marissa Volga Lymphedema I89.0 ; Chronic venous hypertension (idiopathic) with ulcer and inflammation of left lower extremity I87.332 ; Morbid obesity E66.01 ; Peripheral vascular disease I73.9 and 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 L97.825 [facility] [address] 06/10/2024 Marissa Volga Lymphedema I89.0 ; Chronic venous hypertension (idiopathic) with ulcer and inflammation of left lower extremity I87.332 ; Morbid obesity E66.01 ; Peripheral vascular disease I73.9 and 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 L97.825 [facility] [address] 06/17/2024 Marissa Volga Lymphedema I89.0 ; Chronic venous hypertension (idiopathic) with ulcer and inflammation of left lower extremity I87.332 ; Morbid obesity E66.01 ; Peripheral vascular disease I73.9 and 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 L97.825 [facility] [address] 06/24/2024 Marissa Volga Lymphedema I89.0 ; Chronic venous hypertension (idiopathic) with ulcer and inflammation of left lower extremity I87.332 ; Morbid obesity E66.01 ; Peripheral vascular disease I73.9 ; 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 L97.825 and Cellulitis of left lower leg L03.116 [facility] [address] 07/01/2024 Marissa Volga Lymphedema I89.0 ; Chronic venous hypertension (idiopathic) with ulcer and inflammation of left lower extremity I87.332 ; Morbid obesity E66.01 ; Peripheral vascular disease I73.9 ; 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 L97.825 and Cellulitis of left lower leg L03.116 [facility] [address] 07/10/2024 Marissa Mauricio Lymphedema I89.0 ; Chronic venous hypertension (idiopathic) with ulcer and inflammation of left lower extremity I87.332 ; Morbid obesity E66.01 ; Peripheral vascular disease I73.9 ; 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 L97.825 and Cellulitis of left lower leg L03.116 [facility] [address] 07/17/2024 Marissa Mauricio Lymphedema I89.0 ; Chronic venous hypertension (idiopathic) with ulcer and inflammation of left lower extremity I87.332 ; Morbid obesity E66.01 ; Peripheral vascular disease I73.9 ; 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 L97.825 and Cellulitis of left lower leg L03.116 [facility] [address] 07/25/2024 Anzhela José Miguelonina 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 L97.825 ; Chronic venous hypertension (idiopathic) with ulcer and inflammation of left lower extremity I87.332 ; Pruritic dermatitis L30.8 ; Lymphedema I89.0 ; Morbid obesity E66.01 and Peripheral vascular disease I73.9 [facility] [address] 07/31/2024 Marissa Mauricio 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 L97.825 ; Chronic venous hypertension (idiopathic) with ulcer and inflammation of left lower extremity I87.332 ; Pruritic dermatitis L30.8 ; Lymphedema I89.0 ; Morbid obesity E66.01 and Peripheral vascular disease I73.9 [facility] [address] [address] 08/05/2024 Marissa Mauricio 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 L97.825 ; Chronic venous hypertension (idiopathic) with ulcer and inflammation of left lower extremity I87.332 ; Pruritic dermatitis L30.8 ; Lymphedema I89.0 ; Morbid obesity E66.01 and Peripheral vascular disease I73.9 [facility] [address] [address] 08/13/2024 Marissa Mauricio 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 L97.825 ; Chronic venous hypertension (idiopathic) with ulcer and inflammation of left lower extremity I87.332 ; Pruritic dermatitis L30.8 ; Lymphedema I89.0 ; Morbid obesity E66.01 ; Peripheral vascular disease I73.9 and Cellulitis of left lower leg L03.116 [facility] [address] [address] 08/21/2024 Marissa Mauricio Non-pressure chronic ulcer of [...] of deep tissue of right heel L89.616 [facility] [address] [address] 08/26/2024 Marissa Mauricio 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 L97.825 ; Chronic venous hypertension (idiopathic) with ulcer and inflammation of left lower extremity I87.332 ; Lymphedema I89.0 ; Morbid obesity E66.01 ; Peripheral vascular disease I73.9 and Pressure injury of deep tissue of right heel L89.616 [facility] [address] [address] 09/04/2024 Marissa Mauricio 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 L97.825 ; Chronic venous hypertension (idiopathic) with ulcer and inflammation of left lower extremity I87.332 ; Lymphedema I89.0 ; Morbid obesity E66.01 ; Peripheral vascular disease I73.9 and Pressure injury of deep tissue of right heel L89.616 [facility] [address] [facility] [address] [address] 09/11/2024 Marissa Mauricio 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 L97.825 ; Chronic venous hypertension (idiopathic) with ulcer and inflammation of left lower extremity I87.332 ; Lymphedema I89.0 ; Morbid obesity E66.01 ; Peripheral vascular disease I73.9 and Pressure injury of deep tissue of right heel L89.616 [facility] [address] [facility] [address] [address] 09/18/2024 Marissa Mauricio 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 L97.825 ; Chronic venous hypertension (idiopathic) with ulcer and inflammation of left lower extremity I87.332 ; Lymphedema I89.0 ; Morbid obesity E66.01 ; Peripheral vascular disease I73.9 and Pressure injury of deep tissue of right heel L89.616 [facility] [address] [facility] [address] [facility] [address] [place] [address] 09/30/2024 Marissa Mauricio 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 L97.825 ; Chronic venous hypertension (idiopathic) with ulcer and inflammation of left lower extremity I87.332 ; Lymphedema I89.0 ; Morbid obesity E66.01 ; Peripheral vascular disease I73.9 and Pressure injury of deep tissue of right heel L89.616 [facility] [address] [facility] [address] [address] 10/07/2024 Marissa Mauricio 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 L97.825 ; Chronic venous hypertension (idiopathic) with ulcer and inflammation of left lower extremity I87.332 ; Lymphedema I89.0 ; Morbid obesity E66.01 ; Peripheral vascular disease I73.9 and Pressure injury of deep tissue of right heel L89.616 [facility] [address] [facility] [address] [facility] [address] [place] [address] 10/14/2024 Marissa Mauricio 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 L97.825 ; Chronic venous hypertension (idiopathic) with ulcer and inflammation of left lower extremity I87.332 ; Peripheral vascular disease I73.9 ; Morbid obesity E66.01 and Lymphedema I89.0 [facility] [address] [address] 10/21/2024 Marissa Mauricio 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 L97.825 ; Chronic venous hypertension (idiopathic) with ulcer and inflammation of left lower extremity I87.332 ; Peripheral vascular disease I73.9 ; Morbid obesity E66.01 and Lymphedema I89.0 [facility] [address] 10/28/2024 Marissaerasto Mauricio 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 L97.825 ; Chronic venous hypertension (idiopathic) with ulcer and inflammation of left lower extremity I87.332 ; Peripheral vascular disease I73.9 ; Morbid obesity E66.01 and Lymphedema I89.0 [facility] [address] [address] 11/06/2024 Anlashon Manley 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 L97.825 ; Chronic venous hypertension (idiopathic) with ulcer and inflammation of left lower extremity I87.332 ; Pruritic dermatitis L30.8 ; Lymphedema I89.0 ; Morbid obesity E66.01 and Peripheral vascular disease I73.9 [facility] [address] [address] 11/11/2024 Marissa Mauricio 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 L97.825 ; Chronic venous hypertension (idiopathic) with ulcer and inflammation of left lower extremity I87.332 ; Lymphedema I89.0 ; Morbid obesity E66.01 ; Peripheral vascular disease I73.9 and Pruritic dermatitis L30.8 [facility] [address] [address] 11/25/2024 Marissa Mauricio 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 L97.825 ; Chronic venous hypertension (idiopathic) with ulcer and inflammation of left lower extremity I87.332 ; Lymphedema I89.0 ; Morbid obesity E66.01 ; Peripheral vascular disease I73.9 and Pruritic dermatitis L30.8 [facility] [address] [place] [address] 12/04/2024 Marissa Mauricio 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 L97.825 ; Chronic venous hypertension (idiopathic) with ulcer and inflammation of left lower extremity I87.332 ; Lymphedema I89.0 ; Peripheral vascular disease I73.9 ; Morbid obesity E66.01 and Pruritic dermatitis L30.8 [facility] [address] [address] [place] [address] 12/11/2024 Marissa Mauricio 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 L97.825 ; Chronic venous hypertension (idiopathic) with ulcer and inflammation of left lower extremity I87.332 ; Lymphedema I89.0 ; Peripheral vascular disease I73.9 ; Morbid obesity E66.01 and Pruritic dermatitis L30.8 [facility] [address] [facility] [address] [address] 12/27/2023 [facility] [address] [place] [address] 01/29/[address] [facility] [address] [place] [address] 02/13/2024 [facility] [address] [address] 02/29/2024 [facility] [address] [address] [place] [address] 03/21/2024 [facility] [address] [address] [place] [address] 04/02/2024 [facility] [address] [place] [address] 06/24/2024 [facility] [address] [address] 06/27/2024 [facility] [address] [place] [address] 06/27/2024 [facility] [address] [place] [address] 07/01/2024 [facility] [address] [address] 07/10/2024 [facility] [address] [place] [address] 08/05/2024 Marissaerasto Mcginnisett Assessments Encounter Date Diagnosis (ICD Code) Assessment [...] agree w plan of care. IMarissa MSN, [facility]- examined, evaluated and treated the patient. [...] plan of care. I, Marissa Mauricio MSN, [facility]- examined, evaluated and treated the patient. [...] w plan of care. Marissa Reeves MSN, [facility]- examined, evaluated and treated the patient. [...] w plan of care. Marissa Reeves MSN, [facility]- examined, evaluated and treated the patient. Dr. Modesta Bal was available for any question or concerns that I may have had. 02/19/2024 Chronic venous hypertension (idiopathic) with ulcer and inflammation of left lower extremity (ICD-10 - I87.332) On exam, afebrile. The dressing was removed and wound examined. Her lateral LLE wound is much bladder cleaner with primarily granular tissue, large ss [...] plan of care. I, Marissa Mauricio MSN, [facility]- examined, evaluated and treated the patient. Dr. Modesta Bal was available for any question or concerns that I may have had. 02/26/2024 Chronic venous hypertension (idiopathic) with ulcer and inflammation of left lower extremity (ICD-10 - I87.332) On exam, afebrile. The dressing was removed and wound examined. Her lateral LLE wound is much bladder cleaner with primarily granular tissue, large ss [...] plan of care. I, Marissa Mauricio MSN, [facility]- examined, evaluated and treated the patient. Dr. Modesta Bal was available for any question or concerns that I may have had. 03/04/2024 Chronic venous hypertension (idiopathic) with ulcer and inflammation of left lower extremity (ICD-10 - I87.332) On exam, afebrile. The dressing was removed and wound examined. Her lateral LLE wound is much bladder cleaner with primarily granular tissue, large ss [...] w plan of care. [facility], [facility], evaluated and treated the patient. Dr. Modesta Bal was available for any question or concerns that I may have had. 03/11/2024 Chronic venous hypertension (idiopathic) with ulcer and inflammation of left lower extremity (ICD-10 - I87.332) On exam, afebrile. The dressing was removed and wound examined. Her lateral LLE wound is much bladder cleaner with primarily granular tissue, large ss [...] w plan of care. Marissa Reeves MSN, [facility] examined, evaluated and treated the patient. Dr. Modesta Bal was available for any question or concerns that I may have had. 03/18/2024 Chronic venous hypertension (idiopathic) with ulcer and inflammation of left lower extremity (ICD-10 - I87.332) On exam, afebrile. The dressing was removed and wound examined. Her lateral LLE wound is much bladder cleaner with primarily granular tissue, large ss [...] available, may use aquacel ag. Tubi and sva to LLE. Elevation and compression recommended at length. She will return in one week for a follow up appointment and will call in the interim w any questions or concerns. Patient and nursing agree w plan of care. I, Marissa Mauricio MSN, AGPCNP- examined, evaluated and treated the patient. Dr. [...] a follow up visit. I, Zak Manley [facility], examined, evaluated and treated the patient. Dr. [...] without evidence of necrosis (ICD-10 - L97.825) 10/07/2024 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 (ICD-10 - L97.825) 10/14/2024 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 (ICD-10 - L97.825) 10/21/2024 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 (ICD-10 - L97.825) 10/28/2024 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 (ICD-10 - L97.825) 11/06/2024 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 (ICD-10 - L97.825) 11/11/2024 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 (ICD-10 - L97.825) 11/25/2024 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 (ICD-10 - L97.825) 12/04/2024 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 (ICD-10 - L97.825) 12/11/2024 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 (ICD-10 - L97.825) 12/04/2024 Chronic venous hypertension (idiopathic) with ulcer and [...] wound is stable in size but has growing epithelialization each week. I discussed the indication for debridement to [...] cleaned the wound with wound cleanser as we have no vashe in the clinic. Nursing then applied skin prep to periwound and intact epithelial islands on LLE, lachydrin to circumferential intact skin, ag alg to ulcer, optilock due to large drainage f.b abd and kerlix, tubi and sav wrap. We will request VNA perform dressing changes on Monday, Monday and Monday, applying skin prep to periwound and intact epithelial islands, lachydrin to intact skin, ag alg, optilock, abd and kerlix, cover with tubi and sav to LLE. I will review her vascular report once available, had vascular ultrasound 11/14, requested report again today. Continue elevation, compression, and weight loss as able. She will return for a follow up visit in about one week and will call in the interim w any questions or concerns. Elevation and protein supplementation, low salt, appropriate dietary compliance with weight loss to aid in wound healing. Patient and nursing agree w plan of care. IMarissa MSN, [facility]- examined, evaluated and treated the patient. [...] documenting the findings in the note. 12/11/2024 Chronic venous hypertension (idiopathic) with ulcer and inflammation of left lower extremity (ICD-10 - I87.332) Tacos presents today for a follow-up visit for [...] drainage f.b ABD and Kerlix, tubi and sav wrap. We will request VNA perform dressing changes on Monday, Monday and Monday, applying skin prep to periwound and intact epithelial islands, Lac-Hydrin to intact skin, Ag alg, OptiLock, abd and Kerlix, cover with tubi and sav to LLE. I will review her vascular [...] plan of care. I, Marissa Mauricio MSN, [facility]- examined, evaluated and treated the patient. [...] and documenting the findings in the note. 12/04/2024 Lymphedema (ICD-10 - I89.0) 11/11/2024 Lymphedema (ICD-10 - I89.0) 11/25/2024 Chronic venous hypertension (idiopathic) with ulcer and [...] Her lateral LLE wound continues to slowly improve. I discussed the indication for debridement to remove devitalized tissue as well as the application of silver nitrate to the epibole. I performed debridement to remove and break up devitalized tissue to her wound on LLE as detailed, applied silver nitrate to the thickened and rolled edges and she tolerated the procedures well after an application of lidocaine. I cleaned the wound with wound cleanser as we have no vashe in the clinic. Nursing then applied skin prep to periwound and intact epithelial islands on LLE, lachydrin to circumferential intact skin, ag alg to ulcer, optilock due to large drainage f.b abd and kerlix, tubi and sav wrap. We will request VNA perform dressing changes on Monday, Monday and Monday, applying skin prep to periwound and intact epithelial islands, ag alg, optilock, abd and kerlix, cover with tubi and sav to LLE. Apply lachydrin to intact skin, e-rx sent. I will review her vascular report once available, had vascular ultrasound 11/14. Continue elevation, compression, and weight loss as able. She will return for a follow up visit in about one week and will call in the interim w any questions or concerns. Elevation and protein supplementation, low salt, appropriate dietary compliance with weight loss to aid in wound healing. Patient and nursing agree w plan of care. I, Marissa Mauricio MSN, AGNP- examined, evaluated and treated the patient. Dr. [...] and documenting the findings in the note. 11/11/2024 Chronic venous hypertension (idiopathic) with ulcer and [...] examined. Her lateral LLE wound continues to improve. I discussed the indication for debridement to remove devitalized tissue as well as the application of silver nitrate to the epibole. I performed debridement to remove and break up devitalized tissue to her wound on LLE as detailed, applied silver nitrate to the thickened and rolled edges and she tolerated the procedures well after an application of lidocaine. I cleaned the wound with wound cleanser as we have no vashe in the clinic. Nursing then applied zinc to periwound and intact epithelial islands on LLE, ag alg, optilock due to large drainage f.b abd and kerlix, tubi and sav wrap. We will request VNA perform dressing changes on Monday, Monday and Monday, applying zinc to periwound and intact epithelial islands, ag alg, optilock, abd and kerlix, cover with tubi and sav to LLE. I will review her vascular report once available. Continue elevation, compression, and weight loss as able. Has vascular ultrasound 11/14. She will return for a follow up visit in about two weeks and will call in the interim w any questions or concerns. Elevation and protein supplementation, low salt, appropriate dietary compliance with weight loss to aid in wound healing. Patient and nursing agree w plan of care. I, Marissa Mauricio MSN, [facility]- examined, evaluated and treated the patient. Dr. Moedsta Bal was available for any question or concerns that I may have had. A total of 32 minutes was spent on this visit (face to face and non face to face) documenting HPI and performing physical exam, reviewing and formulating treatment plan, counseling the patient on treatment choices, disease process, expected outcomes, and documenting the findings in the note. 11/06/2024 Chronic venous hypertension (idiopathic) with ulcer and inflammation of left lower extremity (ICD-10 - I87.332) Tacos presents today for a follow up visit for treatment of left lower extremity chronic venous ulcer. On exam, vital signs stable, afebrile, non-ill appearing. I removed the dressing and examined the wound located on the left lower leg. Wound is measuring smaller, there is a cluster of multiple with skin islands in between, wound bed with slough, hypregranulated tissue, no surrounding erythema, no purulence, no odor. She has itching surrounding the wound. I discussed the indication for debridement and she was agreeable to procedure. I performed debridement of the ulcer as outlined above and used silver nitrate to cauterize the hypergranulated tissue. Ulcer was cleaned with Vashe, rinsed with saline and Aquacel ag was applied to the wound bed, zinc to periwound secured with dsd. Tubigrip and sav wrap was applied to left leg. She tolerated the procedure well. Tacos's wound is improved this week. There are no signs of acute infectious process. VNA will continue to assist with dressing changes, clean with Vashe, apply Aquacel ag to the wound bed, zinc to periwound secure with dsd. She will use tubigrip and sav wrap for compression. Has vascular ultrasound on 11/14. Leg elevation is encouraged. She will return in 1 week for a follow up visit. I, Zak Manley [facility], examined, evaluated and treated the patient. Dr. Modesta Bal was available for any question or concerns that I may have had. 10/21/2024 Chronic venous hypertension (idiopathic) with ulcer and [...] examined. Her lateral LLE wound continues to improve; the medial aspect of her LLE area remains resolved and the lateral aspect is narrowing nicely with new epithelial areas to the wound bed. I performed debridement to remove and break up devitalized tissue to her wound on LLE as detailed, applied silver nitrate to the thickened and rolled edges and she tolerated the procedures well after an application of lidocaine. I cleaned the wound with wound cleanser as we have no vashe in the clinic. Nursing then applied zinc to periwound and intact epithelial islands on LLE, ag alg, optilock due to large drainage f.b abd and kerlix, tubi and sav wrap. We will request VNA perform dressing changes on Monday and Monday, applying zinc to periwound and intact epithelial islands, ag alg, optilock, abd and kerlix, cover with tubi and sav to LLE. I will review her vascular report once available. Continue elevation and weight loss as able; discussed elevating above the level of her heart which she has been trying to do as she has been using 2 new cushions. She will return for a follow up visit in about one week and will call in the interim w any questions or concerns. Elevation and protein supplementation, low salt, appropriate dietary compliance with weight loss to aid in wound healing. Patient and nursing agree w plan of care. I, Marissa Mauricio MSN, [facility]- examined, evaluated and treated the patient. Dr. Modesta Bal was available for any question or concerns that I may have had. A total of 36 minutes was spent on this visit (face to face and non face to face) documenting HPI and performing physical exam, reviewing and formulating treatment plan, counseling the patient on treatment choices, disease process, expected outcomes, and documenting the findings in the note. 10/28/2024 Chronic venous hypertension (idiopathic) with ulcer and [...] examined. Her lateral LLE wound continues to improve; the medial aspect of her LLE area remains resolved and the lateral aspect is narrowing nicely with many new epithelial areas to the wound bed. I performed debridement to remove and break up devitalized tissue to her wound on LLE as detailed, applied silver nitrate to the thickened and rolled edges and she tolerated the procedures well after an application of lidocaine. I cleaned the wound with wound cleanser as we have no vashe in the clinic. Nursing then applied zinc to periwound and intact epithelial islands on LLE, ag alg, optilock due to large drainage f.b abd and kerlix, tubi and sav wrap. We will request VNA perform dressing changes on Monday, Monday and Monday, applying zinc to periwound and intact epithelial islands, ag alg, optilock, abd and kerlix, cover with tubi and sav to LLE. I will review her vascular report once available. Continue elevation and weight loss as able; discussed elevating above the level of her heart which she has been trying to do as she has been using 2 new cushions. She will return for a follow up visit in about one week and will call in the interim w any questions or concerns. Elevation and protein supplementation, low salt, appropriate dietary compliance with weight loss to aid in wound healing. Patient and nursing agree w plan of care. I, Marissa Mauricio MSN, [facility]- examined, evaluated and treated the patient. Dr. Modesta Bal was available for any question or concerns that I may have had. A total of 32 minutes was spent on this visit (face to face and non face to face) documenting HPI and performing physical exam, reviewing and formulating treatment plan, counseling the patient on treatment choices, disease process, expected outcomes, and documenting the findings in the note. 10/14/2024 Peripheral vascular disease (ICD-10 - I73.9) 10/07/2024 Chronic venous hypertension (idiopathic) with ulcer and [...] cleaned the wound with wound cleanser as we have no vashe in the clinic. Nursing then applied zinc to periwound and intact epithelial islands on LLE, ag alg, optilock due to large drainage f.b abd and kerlix, tubi and sav wrap. We will request VNA perform dressing changes on Monday and Monday, applying zinc to periwound and intact epithelial islands, ag alg, optilock, abd and kerlix, cover with tubi and sav to LLE. Vascular appointment upcoming next week. Continue elevation and weight loss as able; discussed elevating above the level of her heart which she has been trying to do as she has been using 2 new cushions. She will return for a follow up visit in about one week and will call in the interim w any questions or concerns. Elevation and protein supplementation, low salt, appropriate dietary compliance with weight loss to aid in wound healing. Patient and nursing agree w plan of care. IMarissa MSN, [facility]- examined, evaluated and treated the patient. [...] and documenting the findings in the note. 10/07/2024 Lymphedema (ICD-10 - I89.0) 10/14/2024 Chronic venous hypertension (idiopathic) with ulcer and [...] cleaned the wound with wound cleanser as we have no vashe in the clinic. Nursing then applied zinc to periwound and intact epithelial islands on LLE, ag alg, optilock due to large drainage f.b abd and kerlix, tubi and sav wrap. We will request VNA perform dressing changes on Monday and Monday, applying zinc to periwound and intact epithelial islands, ag alg, optilock, abd and kerlix, cover with tubi and sav to LLE. Vascular appointment upcoming 10/15/24; she reports she does not want any surgical intervention, even if it will help improve circulatory status. Continue elevation and weight loss as able; discussed elevating above the level of her heart which she has been trying to do as she has been using 2 new cushions. She will return for a follow up visit in about one week and will call in the interim w any questions or concerns. Elevation and protein supplementation, low salt, appropriate dietary compliance with weight loss to aid in wound healing. Patient and nursing agree w plan of care. I, Marissa Mauricio MSN, [facility]- examined, evaluated and treated the patient. [...] and documenting the findings in the note. 09/30/2024 Chronic venous hypertension (idiopathic) with ulcer [...] agree w plan of care. IMarissa MSN, [facility]- examined, evaluated and treated the patient. [...] plan of care. I, Marissa Mauricio MSN, [facility]- examined, evaluated and treated the patient. [...] agree w plan of care. IMarissa MSN, [facility]- examined, evaluated and treated the patient. [...] plan of care. I, Marissa Mauricio MSN, [facility]- examined, evaluated and treated the patient. [...] plan of care. I, Marissa Mauricio MSN, [facility]- examined, evaluated and treated the patient. [...] plan of care. I, Marissa Mauricio MSN, [facility]- examined, evaluated and treated the patient. [...] plan of care. I, Marissa Mauricio MSN, [facility]- examined, evaluated and treated the patient. [...] plan of care. I, Marissa Mauricio MSN, [facility]- examined, evaluated and treated the patient. [...] a follow up visit. I, Zak Manley [facility], examined, evaluated and treated the patient. Dr. [...] I have requested her vascular report with Rafia from 07/15/24 again today and will review [...] plan of care. I, Marissa Mauricio MSN, [facility]- examined, evaluated and treated the patient. [...] plan of care. I, Marissa Mauricio MSN, [facility]- examined, evaluated and treated the patient. [...] and sav changing daily by VNA and s here in office. Vascular appointment scheduled for [...] plan of care. I, Marissa Mauricio MSN, [facility]- examined, evaluated and treated the patient. Dr. Moedsta Bal was available for any question or [...] and sav changing daily by VNA and s here in office.She will call vascular to [...] plan of care. I, Marissa Mauricio MSN, [facility]- examined, evaluated and treated the patient. [...] is hesitatnt but agreeable to going to [facility] for another recommedation; she has not been [...] w plan of care. Marissa Reeves MSN, [facility]- examined, evaluated and treated the patient. [...] w plan of care. Marissa Reeves MSN, AGPCNP- examined, evaluated and treated the patient. Dr. [...] w plan of care. Marissa Reeves MSN, [facility]- examined, evaluated and treated the patient. [...] plan of care. I, Marissa Mauricio MSN, AGPCNP- examined, evaluated and treated the patient. Dr. [...] plan of care. I, Marissa Mauricio MSN, [facility]- examined, evaluated and treated the patient. [...] plan of care. I, Marissa Mauricio MSN, [facility]- examined, evaluated and treated the patient. [...] plan of care. I, Marissa Mauricio MSN, [facility]- examined, evaluated and treated the patient. [...] w plan of care. Marissa Reeves MSN, AGNP-BC examined, evaluated and treated the patient. Dr. [...] w plan of care. Marissa Reeves MSN, AGNP-BC examined, evaluated and treated the patient. Dr. [...] examined. Her lateral LLE wound is much bladder cleaner with primarily granular tissue, large ss [...] agree w plan of care. IMarissa MSN, [facility]- examined, evaluated and treated the patient. [...] - I89.0) 09/30/2024 Lymphedema (ICD-10 - I89.0) 10/07/2024 Morbid obesity (ICD-10 - E66.01) 10/14/2024 Morbid obesity (ICD-10 - E66.01) 10/21/2024 Peripheral vascular disease (ICD-10 - I73.9) 10/28/2024 Peripheral vascular disease (ICD-10 - I73.9) 11/06/2024 Pruritic dermatitis (ICD-10 - L30.8) 11/11/2024 Morbid obesity (ICD-10 - E66.01) 11/25/2024 Lymphedema (ICD-10 - I89.0) 12/04/2024 Peripheral vascular disease (ICD-10 - I73.9) 12/11/2024 Lymphedema (ICD-10 - I89.0) 12/04/2024 Morbid obesity (ICD-10 - E66.01) 12/11/2024 Peripheral vascular disease (ICD-10 - I73.9) 11/25/2024 Morbid obesity (ICD-10 - E66.01) 11/11/2024 Peripheral vascular disease (ICD-10 - I73.9) 11/06/2024 Lymphedema (ICD-10 - I89.0) 10/28/2024 Morbid obesity (ICD-10 - E66.01) 10/21/2024 Morbid obesity (ICD-10 - E66.01) 10/14/2024 Lymphedema (ICD-10 - I89.0) 09/30/2024 Morbid obesity (ICD-10 - E66.01) 10/07/2024 Peripheral vascular disease (ICD-10 - I73.9) 09/18/2024 Morbid obesity (ICD-10 - E66.01) 09/11/2024 Morbid [...] a follow up visit. I, Zak Manley [facility], examined, evaluated and treated the patient. Dr. [...] 09/30/2024 Peripheral vascular disease (ICD-10 - I73.9) 10/07/2024 Pressure injury of deep tissue of right heel (ICD-10 - L89.616) 10/21/2024 Lymphedema (ICD-10 - I89.0) 10/28/2024 Lymphedema (ICD-10 - I89.0) 11/06/2024 Morbid obesity (ICD-10 - E66.01) 11/11/2024 Pruritic dermatitis (ICD-10 - L30.8) 11/25/2024 Peripheral vascular disease (ICD-10 - I73.9) 12/11/2024 Morbid obesity (ICD-10 - E66.01) 12/04/2024 Pruritic dermatitis (ICD-10 - L30.8) 12/11/2024 Pruritic dermatitis (ICD-10 - L30.8) 11/25/2024 Pruritic dermatitis (ICD-10 - L30.8) 11/06/2024 Peripheral vascular disease (ICD-10 - I73.9) 09/30/2024 [...] right heel (ICD-10 - L89.616) 01/23/2024 Other Leandro, Armando Bal MD confirm that Zak MCMAHON understands and adheres to the guidelines of the established clinical protocols in the office. I confirm the above care provided was rendered under my general supervision as initially planned and subsequently discussed and supervised by me. 02/05/2024 Other Armando Reeves MD confirm that Marissa LEON, AGPCNP-BC, understands and adheres to the guidelines of the established clinical protocols in the office. I confirm the above care provided was rendered under my general supervision as initially planned and subsequently discussed and supervised by me. 02/12/2024 Other Armando Reeves MD confirm that Marissa LEON, AGPCNP-BC, understands and adheres to the guidelines of the established clinical protocols in the office. I confirm the above care provided was rendered under my general supervision as initially planned and subsequently discussed and supervised by me. 02/19/2024 Other Armando Reeves MD confirm that Marissa LEON, AGPCKATY-BC, understands and adheres to the guidelines of [...] 04/01/2024 Other Armando Reeves MD confirm that SALINA Rivera, understands and adheres to the guidelines of the established clinical protocols in the office. I confirm the above care provided was rendered under my general supervision as initially planned and subsequently discussed and supervised by me. 04/08/2024 Other Armando Reeves MD confirm that Ariela PEREZ understands and adheres to the guidelines of the established clinical protocols in the office. I confirm the above care provided was rendered under my general supervision as initially planned and subsequently discussed and supervised by me. 04/15/2024 Other Armando Reeves MD confirm that SALINA [...] 05/20/2024 Other Armando Reeves MD confirm that SALINA [...] 06/17/2024 Other Armando Reeves MD confirm that SALINA Rivera, understands and adheres to the guidelines of the established clinical protocols in the office. I confirm the above care provided was rendered under my general supervision as initially planned and subsequently discussed and supervised by me. 06/24/2024 Other Armando Reeves MD confirm that SALINA Rivera, understands and adheres to the guidelines of the established clinical protocols in the office. I confirm the above care provided was rendered under my general supervision as initially planned and subsequently discussed and supervised by me. 07/01/2024 Other Armando Reeves MD confirm that SALINA Rivera, understands and adheres to the guidelines of the established clinical protocols in the office. I confirm the above care provided was rendered under my general supervision as initially planned and subsequently discussed and supervised by me. 07/17/2024 Other Armando Reeves MD confirm that SALINA Rivera, understands and adheres to the guidelines of the established clinical protocols in the office. I confirm the above care provided was rendered under my general supervision as initially planned and subsequently discussed and supervised by me. 07/25/2024 Other Armando Reeves MD confirm that Zak Manley [employer] [facility] understands and adheres to the guidelines of the established clinical protocols in the office. I confirm the above care provided was rendered under my general supervision as initially planned and subsequently discussed and supervised by me. 07/31/2024 Other Armando Reeves MD confirm that MarissaSALINA Chan, understands and adheres to the guidelines of the established clinical protocols in the office. I confirm the above care provided was rendered under my general supervision as initially planned and subsequently discussed and supervised by me. 08/05/2024 Other Armando Reeves MD confirm that SALINA [...] 09/18/2024 Other Armando Reeves MD confirm that SALINA Rivera, understands and adheres to the guidelines of the established clinical protocols in the office. I confirm the above care provided was rendered under my general supervision as initially planned and subsequently discussed and supervised by me. 09/30/2024 Other Armando Reeves MD confirm that Marissa Hang LEON EVELINEESPERANZATATYANA, understands and adheres to the guidelines of the established clinical protocols in the office. I confirm the above care provided was rendered under my general supervision as initially planned and subsequently discussed and supervised by me. 10/07/2024 Other Armando Reeves MD confirm that Marissa Mcginnissabi LEON EVELINEESPERANZATATYANA, understands and adheres to the guidelines of the established clinical protocols in the office. I confirm the above care provided was rendered under my general supervision as initially planned and subsequently discussed and supervised by me. 10/14/2024 Other Armando Reeves MD confirm that Marissa Hang LEON EVELINEWILL, understands and adheres to the guidelines of the established clinical protocols in the office. I confirm the above care provided was rendered under my general supervision as initially planned and subsequently discussed and supervised by me. 10/21/2024 Other Armando Reeves MD confirm that Marissa LEON EVELINEWILL, understands and adheres to the guidelines of the established clinical protocols in the office. I confirm the above care provided was rendered under my general supervision as initially planned and subsequently discussed and supervised by me. 10/28/2024 Other Armando Reeves MD confirm that Marissa LEON EVELINEESPERANZATATYANA, understands and adheres to the guidelines of the established clinical protocols in the office. I confirm the above care provided was rendered under my general supervision as initially planned and subsequently discussed and supervised by me. 11/06/2024 Other Armando Reeves MD confirm that Casperbere Vineet REMOTE SENSING ANALYST-C understands and adheres to the guidelines of the established clinical protocols in the office. I confirm the above care provided was rendered under my general supervision as initially planned and subsequently discussed and supervised by me. 11/11/2024 Other Armando Reeves MD confirm that DANTE Rivera-ASHISH, understands and adheres to the guidelines of the established clinical protocols in the office. I confirm the above care provided was rendered under my general supervision as initially planned and subsequently discussed and supervised by me. 11/25/2024 Other Armando Reeves MD confirm that Marissa LEON, SALINA, understands and adheres to the guidelines of the established clinical protocols in the office. I confirm the above care provided was rendered under my general supervision as initially planned and subsequently discussed and supervised by me. 12/04/2024 Other Armando Reeves MD confirm that Marissa LEON, SALINA, understands and adheres to the guidelines of the established clinical protocols in the office. I confirm the above care provided was rendered under my general supervision as initially planned and subsequently discussed and supervised by me. Plan Of Treatment Next Appt Details Provider Name:Marissaerasto Mcginnisett , 12/18/2024 11:00:00 AM, [address] , [facility] [address], [place], [address], Insurance Providers Payer Name Payer Address Payer Phone Subscriber Number Group Number Insured Name Patient Relationship to Insured Coverage Start Date Coverage End Date [facility] [address] [place], [place] [id number] Self - patient is [...]
== END 2024-12-12 10:12 | disposition home or self-care (01) ==
LOC: HO.HMCFM 09:20
PROVIDERS: PCP Internal Medicine; Visit Provider Internal Medicine
DX: N39.41 Urge incontinence (principal); D64.9 Anemia, unspecified; M51.362 Other intervertebral disc degeneration, lumbar region with discogenic back pain and lower extremity pain; G89.4 Chronic pain syndrome

== ENCOUNTER 2024-12-12 09:20 | Outpatient (REF) | payer OTHER, SELFPAY ==
[2024-12-12 14:05] LABS: MANUAL DIFF FLAG NO
[2024-12-12 14:09] LABS: Hematocrit 30.1 % (37.0-47.0); Hemoglobin 9.4 g/dl (12.0-16.0); Imm Gran Abs Auto 0.01 X10*3/uL (0.00-0.03); Imm Gran Pct Auto 0.2 % (0.0-0.4); Lymphocytes Absolute Auto 1.7 X10*3/uL (1.2-4.9); Mean Corpuscular HGB Conc 31.2 g/dl (31.0-35.0); Mean Corpuscular Hemoglobin 26.1 pg (27.0-33.0); Mean Corpuscular Volume 83.6 fL (80.0-98.0); NRBC Abs Auto 0.000 X10*3/uL (0.0-0.012); NRBC Pct Auto 0.0 /100WBC (0.0-0.2); Platelet Count 216 X10*3/uL (160-400); Red Blood Count 3.60 X10*6/uL (4.20-5.50); White Blood Count 5.0 X10*3/uL (4.8-10.8)
[2024-12-12 14:19] LABS: Iron 25 mcg/dL (30-160); Percent Iron Saturation 6 % (15-50); Total Iron Binding Capacity 410 mcg/dL (228-428); Unsaturated Iron Binding 385 ug/dL
[2024-12-12 14:26] LABS: Appearance Urine Clear; Glucose Urine UA Negative (Negative); PH 6.0 (5.0-9.0); Specific Gravity - Urine <= 1.005 (1.005-1.025)
[2024-12-12 14:52] LABS: Folate 7.0 ng/mL (> or = 4.0); Vitamin B12 204 pg/mL (200-900)
== END 2024-12-12 09:21 | disposition home or self-care (01) ==
LOC: HO.WFDLDS 09:20
PROVIDERS: PCP Internal Medicine; Visit Provider Internal Medicine
DX: R53.83 Other fatigue (principal); D64.9 Anemia, unspecified; R30.0 Dysuria; N39.41 Urge incontinence; M51.362 Other intervertebral disc degeneration, lumbar region with discogenic back pain and lower extremity pain; G89.4 Chronic pain syndrome; Z79.891 Long term (current) use of opiate analgesic; Z79.899 Other long term (current) drug therapy
CPT/HCPCS: 81003; 82607; 82746; 83540; 85025

== ENCOUNTER 2025-03-24 11:41 | Outpatient (AMB) | payer OTHER, SELFPAY ==
--- NOTE | 2025-03-24 11:42 | A.OFFPC_ITS ---
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 Required: No Allergies bupropion Allergy (Unknown, Verified 03/24/25 11:43) Blister latex Allergy (Unknown, Verified 03/24/25 11:43) Rash silicone Allergy (Unknown, Verified 03/24/25 11:43) Rash tramadol Allergy (Unknown, Verified 03/24/25 11:43) feels unwell meloxicam Allergy (Verified 03/24/25 11:43) Blister adhesive bandaid Allergy (Unknown, Uncoded 03/24/25 11:43) Rash Tobacco use date assessed: 12/12/24 Dental Screening Dental Screen Date: 12/12/24 HPI HPI Comments History of Present Illness Details 64 year old female with a past medical h istory of depression, anxiety, GERD, LE edema, PVD, low back pain, sciatica presenting for follow up CV: stable on current medications. Blood pressure is elevated today. She is quite stressed out. continues GLP to aid weight loss though she has held this numerous times due to nausea and sometimes due to the copay. She does have zofran to use prn but has not been using. Chronic pain: Low back, sciatica, chronic wounds, knee pain, recently bilateral proximal forearm pain. Cotninues morphine ER, oxycodone. Compression fractures noted at L4-L5. Mulitilevel DDD. knee pain -needs replacement but wont perform without weight loss. Leg ulcer-left leg chronic. Follows with [facility]. Follows with vascular and Dr Ocasio and the wound center. Stable lower extremity swelling-back on lasix. RLS on pramiprexole. Thyroid nodules: u/s stable BH: On zoloft. Patient mother recently as well as a favorite uncle. is not being supportive. Sees a therapist. [facility] is following. Patient reports worsening stress and urge incontinence. Tells me that many years ago was recommended to have sling procedure. She has not been to gynecology in years. Had hysterectomy. Referred to urogynecology is pending-number provided Mammo 12/2022 Anemia on labs. She had cologuard 2022 -neg. She said she had an appointment with gastroenterology scheduled for December but she cant recall this ever being scheduled. Referred today ROS see HPI PHYSICAL EXAM: GENERAL: Alert and oriented x 3. NAD EYES: EOMI. Anicteric. HENT: Moist mucous membranes. No scleral icterus. No cervical lymphadenopathy. LUNGS: Clear to auscultation bilaterally. CARDIOVASCULAR: Regular rate and rhythm. No murmur. No JVD. ABDOMEN: Soft, non-tender +bs EXTREMITIES: bialteral edema. Non-tender. SKIN: Warm. LLE wound is wrapped NEUROLOGIC: No focal neurological deficits. CN II-XII grossly intact PSYCHIATRIC: Cooperative. Appropriate mood and affect [facility] Medical History Depression Tubular adenoma of colon Severe obesity Restless legs Osteoarthritis Obesity Multiple thyroid nodules Hyponatremia Hypochloremia H/O gastroesophageal reflux (GERD) Elevated troponin COVID-19 Anemia Surgical History History of cholecystectomy Hx of laparoscopic gastric banding H/O gastric bypass H/O tubal ligation H/O: hysterectomy Family History Mother Heart disease Osteoporosis Father Prostate cancer Social History Housing: House Alcohol intake: current Patient Tobacco Use Status: Never used Tobacco e-Cigarette/Vaping Use: Never Used Second Hand Smoke Exposure: No service: No Current occupational status: disabled Cognitive needs: No Hearing needs: No Vision needs: Yes (glasses) Questionnaire Thrive Questionnaire Date Thrive assessed: 04/30/24 I am a: Patient What is your living situation today?: I have a steady place to live Within the past 12 months, did the food you bought not last and you didn't have the money to get more?: Never true Within the past 12 months, did you worry whether your food would run out before you got money to buy more?: Never true Do you have trouble paying for medicines?: No Do you have trouble getting transportation to medical appointments?: No Do you have trouble paying your heating and electricity bill?: No Do you have trouble taking care of your child, family member or friend?: No Do you have trouble with day-to-day activities such as bathing, preparing meals, shopping, managing finances, etc.?: No Are you currently unemployed and looking for a job?: No Are you interested in more education?: No Please select the resources that you would like help with: None Currently or been in a relationship where the following occur: No concerns reported THRIVE Score: 0 ALEX-7 AMB Questionnaire ALEX-7 Date ALEX - 7 assessed: 04/30/24 Source: Developed by Drs. Stoney Madrid, Niya Crowley, Leonard Carrington and colleagues, with an educational urvashi from [employer] Physical exam (Primary Care) Vital Signs: Last Vital Signs Pulse 73 03/24/25 11:43 Resp 18 03/24/25 11:43 BP 196/91 H 03/24/25 11:43 Pulse Ox 97 03/24/25 11:43 Oxygen Delivery Method Room Air 03/24/25 11:43 Tobacco/Smoking Status: Tobacco use Status Tobacco use date assessed 12/12/24 03/24/25 11:46 Patient Tobacco Use Status Never used Tobacco 03/24/25 11:46 e-Cigarette/Vaping Use Never Used 03/24/25 11:46 Thrive Assessment: Date of Thrive Assessment Date Thrive assessed 04/30/24 03/24/25 11:46 Currently or been in a relationship where the following occur: No concerns reported Coding Level of Care Code Add On Preventative Visit Only Diagnoses Bilateral arm pain M79.601; M79.602 Knee pain, unspecified chronicity, unspecified laterality M25.569 Chronicity: unspecified Laterality: unspecified laterality Primary osteoarthritis involving multiple joints M15.9 Osteoarthritis location: multiple joints Osteoarthritis type: primary Anemia, unspecified type D64.9 Anemia type: unspecified type Assessment & Plan Assessment & Plan (1) Bilateral arm pain: Code(s): M79.601 - Pain in right arm; M79.602 - Pain in left arm Category: Medical (2) Knee pain: Code(s): M25.569 - Pain in unspecified knee Category: Medical Qualifiers: Chronicity: unspecified Laterality: unspecified laterality Qualified Code(s): M25.569 - Pain in unspecified knee (3) Osteoarthritis: Comment: stable baseline pain on current medications Code(s): M19.90 - Unspecified osteoarthritis, unspecified site Category: Medical Qualifiers: Osteoarthritis location: multiple joints Osteoarthritis type: primary Qualified Code(s): M15.9 - Polyosteoarthritis, unspecified (4) Anemia: Code(s): D64.9 - Anemia, unspecified Category: Medical Qualifiers: Anemia type: unspecified type Qualified Code(s): D64.9 - Anemia, unspecified Plan 64 year old for follow up Recent stressors, tearful. Increase sertraline to 50mg daily Bilateral arm pain, muscular. Check labs. Add baclofen. MSK-continue chronic opioid therapy Anemia-GI referral placed. Discussed the importance given anemia Orders: Orders Complete Blood Count Auto Diff Today E66.01 - Morbid (severe) obesity due to excess calories, I10 - Essential (primary) hypertension, I73.9 - Peripheral vascular disease, unspecified, Z68.43 - Body mass index [BMI] 50.0-59.9, adult IRON PROFILE Today E66.01 - Morbid (severe) obesity due to excess calories, I10 - Essential (primary) hypertension, I73.9 - Peripheral vascular disease, unspecified, Z68.43 - Body mass index [BMI] 50.0-59.9, adult Comprehensive Met. Panel Today E66.01 - Morbid (severe) obesity due to excess calories, I10 - Essential (primary) hypertension, I73.9 - Peripheral vascular disease, unspecified, Z68.43 - Body mass index [BMI] 50.0-59.9, adult MM tomosynthesis screening BI Today Z12.31 - Encounter for screening mammogram for malignant neoplasm of breast C Reactive Protein Today M79.601 - Pain in right arm, M79.602 - Pain in left arm Hemoglobin A1c Today E66.01 - Morbid (severe) obesity due to excess calories, I10 - Essential (primary) hypertension, I73.9 - Peripheral vascular disease, unspecified, Z68.43 - Body mass index [BMI] 50.0-59.9, adult Erythrocyte Sedimentation Rate Today M79.601 - Pain in right arm, M79.602 - Pain in left arm Urine Culture Today R32 - Unspecified urinary incontinence Referrals Gastroenterology Referral D12.6 - Benign neoplasm of colon, unspecified, D64.9 - Anemia, unspecified Medications: New sertraline 50 mg PO DAILY 90 tabs 3RF baclofen 10 mg PO TID PRN 90 tabs 3RF muscle pain Refilled oxycodone 5 mg PO Q8H PRN 84 tabs 0RF pain 28 days Discontinued sertraline Take 1/2 tab oral once daily for one week then increase to 1 tab oral once daily Discontinued Reason: Doctor's Order 25 mg PO DAILY 90 tabs 3RF Patient Instructions: I increased the sertraline to 50mg daily Start baclofen up to 3 times daily I placed a gastroenterology referral because of your anemia You have the number to call urogynecology
[2025-03-24 11:43] VITALS: BP 196/91; PULSE 73; RESP 18; O2SAT 97
== END 2025-03-24 12:25 | disposition home or self-care (01) ==
LOC: HO.HMCFM 11:41
PROVIDERS: PCP Internal Medicine; Visit Provider Internal Medicine
DX: M79.601 Pain in right arm (principal); M79.602 Pain in left arm; M25.569 Pain in unspecified knee; M15.9 Polyosteoarthritis, unspecified; D64.9 Anemia, unspecified